=== PATIENT | female | born 1950 | race Caucasian/White ===

== ENCOUNTER → 2017-08-21 12:23 | Outpatient (CLI) | payer MEDICARE, OTHER, SELFPAY ==
[2017-08-21 14:44] LABS: Hemoglobin A1c 6.2 % (4.2-6.3)
== END ==
PROVIDERS: Family Provider Internal Medicine; PCP Internal Medicine; Visit Provider Nurse Practitioner Family
DX: E11.9 Type 2 diabetes mellitus without complications (principal)
CPT/HCPCS: 36415; 83036

== ENCOUNTER → 2018-02-26 10:26 | Outpatient (CLI) | payer MEDICARE, OTHER, SELFPAY ==
[2018-02-26 12:41] LABS: Hemoglobin A1c 6.1 % (4.2-6.3)
[2018-02-26 12:47] LABS: ALB/GLOB Ratio 1.1 RATIO (0.9-2.4); AST(SGOT) 26 U/L (15-37); Alanine Aminotransfer ALT/SGPT 30 U/L (13-56); Albumin, Serum 3.9 g/dL (3.2-5.0); Alkaline Phosphatase 99 U/L (45-117); Anion Gap 8 (5-15); BUN 23 mg/dL (7-18); BUN/Creat Ratio 25.4 RATIO (10-20); Calcium,Total 9.4 mg/dL (8.5-10.1); Chloride 107 mmol/L (98-107); Cholesterol 159 mg/dL (200); EST Glomerular Filtration Rate 65 mL/min (>60); Est Glom Filt Rate - Afr Amer 79 mL/min (>60); Globulin 3.7 g/dL (2.2-4.2); Glucose 130 mg/dL (74-106); High Density Lipoprotein 64 mg/dL; Protein, Total 7.6 g/dL (6.4-8.2); Sodium Level 143 mmol/L (136-145); Triglycerides 111 mg/dL; Very Low Density Lipoprotein 22 mg/dL (5-40)
--- NOTE | 2018-02-26 13:43 | BI_ITS ---
MAMMOGRAPHY - BILATERAL SCREENING REASON FOR EXAM: Female, 68 years old. Routine annual screening examination. PERTINENT HISTORY: Mother with breast cancer. TECHNIQUE: Digital bilateral breast rambo (3D mammographic acquisition) in the CC and MLO projections. 2-D mediolateral oblique (MLO) and craniocaudad (CC) views of both breasts were obtained. CAD: Full Field Digital Mammography with Computer Added Detection was performed. COMPARISON: Comparison is made with prior study dated January 29, 2017 and June 11, 2012. FINDINGS: Breast Composition: The breasts are almost entirely fatty. There are no dominant masses or suspicious calcifications. Stable bilateral scattered calcifications. No focal clustering is seen. No other significant abnormalities are identified. There has been no significant change since the prior study. BI/SCREENING MAMM (CAD), BILAT IMPRESSION: Stable bilateral screening mammogram. Yearly follow-up mammogram recommended. (A) ASSESSMENT CATEGORY: BIRADS Category 2: Benign. A letter regarding these results will be sent to the patient by the facility within 30 days. Approximately 10% of breast cancers are not detected by mammography. A normal mammogram should not delay biopsy of a clinically suspicious abnormality. [id number] Electronically Signed: Brown Dawkins MD at 11:10 EDT Tel [phone], Service support ,
--- NOTE | 2018-02-26 13:51 | BD_ITS ---
STUDY: DUAL ENERGY X-RAY ABSORPTIOMETRY / DXA REASON FOR EXAM: Female, 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 COMPARISON: None. FINDINGS: Lumbar Spine (L1-L4): g/cm2 (1.315) / T-score (1.2) / Z-score (2.9) Findings are suggestive of normal bone density with a low fracture risk. Left Femur Total: g/cm2 (1.016) / T-score (.1) / Z-score (1.5) Left Femoral Neck: g/cm2 (.821) / T-score (-1.6) / Z-score (.1) Right Femur Total: g/cm2 (.948) / T-score (-.5) / Z-score (1) Right Femoral Neck: g/cm2 (.773) / T-score (-1.9) / Z-score (-.2) BD/Dexa Bone Density Study IMPRESSION: The patient is considered osteopenic as outlined below according to World Bj Organization (WHO) criteria with a moderate fracture risk. Reference Information: The T-score is the number of standard deviations above or below the standard which is normal for young adults at their peak bone mineral density. The World Health Organization (WHO) interprets the T-scores as follows: Above -1 Normal bone density Between -1 and -2.5 Osteopenia Equal to / or below -2.5 Osteoporosis As a practical clinical guideline, osteopenia may be graded as follows: Mild -1 through -1.5 Moderate -1.6 through -2.0 Severe -2.1 through -2.4 The Z-score is the number of standard deviations above or below age-matched controls. A Z-score of less than -1.5 would be considered abnormal. References: 1. NIH Osteoporosis and Related Bone Diseases http://www.osteo.org 2. International Society for Clinical Densitometry http://www.iscd.org 3. National Osteoporosis Foundation http://www.nof.org Electronically Signed: Gaston Segura MD at 22:21 EDT , Service support ,
== END ==
PROVIDERS: Family Provider Internal Medicine; PCP Internal Medicine; Visit Provider Internal Medicine
DX: Z78.0 Asymptomatic menopausal state (principal); Z12.31 Encounter for screening mammogram for malignant neoplasm of breast; E11.9 Type 2 diabetes mellitus without complications; I10 Essential (primary) hypertension
CPT/HCPCS: 36415; 77063; 77067; 77080; 80053; 80061; 83036

== ENCOUNTER 2018-03-02 06:59 | Day surgery (SDC) | payer MEDICARE, OTHER, SELFPAY ==
[2018-03-02] VITALS (7 sets, daily range): BP systolic 104–143; BP diastolic 63–75; PULSE 62–73; RESP 12–16; TEMP 35.7–37.1; O2SAT 98–100; BMI 37.5
--- NOTE | 2018-03-02 | COLBX_PTH ---
PATIENT: HIEU SAGASTUME LOC: [facility] U#:[id number] AGE/SX: 68/F ROOM: RE03/02/[address]: Dr. Mine Austin MD : [id number] BED: DIS: 03/02/2018 SPEC #: [id number] RECD: 03/02/18 09:17 STATUS: BERE ANNE #: [id number] DOM: 03/02/18 00:[address]: Mine Austin DEPT: SURGICAL PATHOLOGY RECD BY: Jamarcus Geronimo ENTERED: 03/02/18 10:47 SP TYPE: COLON BX OTHR DR: Dr. Cassie Nuno MD Tissues: A - Cecum, NOS B - Sigmoid colon biopsy Procedures: Surgery Specimen Level IV HEADER OPERATION: Colonoscopy (MAC) PRE-OP DIAGNOSIS: Screening for colon CA TISSUE SUBMITTED: A ? Cecal polyp biopsy, B ? Sigmoid polyp biopsy MICROSCOPIC DIAGNOSIS A. Cecal polyp, biopsy: Benign mucosal polyp. See comment. B. Sigmoid colon polyp, biopsy: Fragments of tubular adenoma. AM:jose 03/03/18 COMMENT A. Neither hyperplastic nor adenomatous change is present. Benign appearing lymphoid aggregate is noted. Clinical correlation is suggested. Case has been reviewed in consultation with Dr. Rogers who concurs with the above diagnosis. IDC:YANETH MICROSCOPIC DESCRIPTION Slides are reviewed. GROSS DESCRIPTION A - Received in fixative is one container labeled with the patient's name and designated cecal polyp biopsy. The specimen consists of two irregular fragmenst of light amaya soft tissue that measure 0.5 x 0.2 x 0.1 cm. The specimen is totally submitted in one cassette. B - Received in fixative is one container labeled with the patient's name and designated sigmoid polyp biopsy. The specimen consists of two irregular fragments of light amaya soft tissue that measure 0.3 x 0.3 x 0.1 cm. The specimen is totally submitted in one cassette. / YANETH:jose 03/02/18 TC:5 CPT: 67170 x2
[2018-03-02 07:30] LABS: Bedside Glucose 108 mg/dL (70-110)
--- NOTE | 2018-03-02 08:28 | PCM.OPRPT ---
Report of Operation Date of Procedure: 03/02/18 Pre-Operative Diagnosis: Screening for colon cancer Post-Operative Diagnosis: Small sessile cecal and sigmoid polyps Surgery/Procedure Performed:: Colonoscopy with cold forceps biopsy Type of Anesthesia:: MAC Anesthesiologist: Shalom Pastor Specimen's removed: 1. Cecal polyp, 2. Sigmoid polyp Estimated Blood Loss (mL): Minimal Description of Procedure: Procedure: Colonoscopy After reviewing the risks benefits, the patient was deemed in satisfactory condition to undergo procedure. After obtaining informed consent, the scope was passed under direct visualization. Throughout the procedure, the patient's blood pressure pulse and position saturations were monitored continuously anesthesia. The colonoscope was introduced through the anus and advanced to the cecum, identified by the appendiceal orifice, IC valve and transillumination. The colonoscopy was performed without difficulty. The patient tolerated procedure well. Quality of bowel prep was good. Findings: The perianal and digital rectal exam were normal. Small sessile cecal and sigmoid polyp removed with cold forceps biopsies. Otherwise the colon (entire examined portion) appeared normal. Retroflexed view of the distal rectum and anal verge was normal and showed no anal or rectal abnormalities Impression: 1. 2 small sessile polyps one in the cecum and one in the sigmoid. Removed completely 2. The distal rectal and anal verge were normal on retroflexed view. Recommendations: Await biopsies Repeat colonoscopy in 5 years for screening purposes depending on biopsies - Complications None
== END 2018-03-02 09:20 | disposition home or self-care (01) ==
LOC: EN 07:00 → AC 07:01
PROVIDERS: Family Provider Internal Medicine; PCP Internal Medicine; Visit Provider Surgery
PROC: 0DJD8ZZ Inspection of Lower Intestinal Tract, Via Natural or Artificial Opening Endoscopic (ICD-10-PCS; CPT 45378; principal; 2018-03-02 07:55)
DX: Z12.11 Encounter for screening for malignant neoplasm of colon (principal); D12.5 Benign neoplasm of sigmoid colon; K63.5 Polyp of colon; E11.9 Type 2 diabetes mellitus without complications
CPT/HCPCS: 45380; 82962; 88305; J7120

== ENCOUNTER → 2018-03-31 09:38 | Outpatient (CLI) | payer MEDICARE, OTHER, SELFPAY ==
[2018-03-31 12:28] LABS: Anion Gap 7 (5-15); BUN 11 mg/dL (7-18); BUN/Creat Ratio 13.9 RATIO (10-20); Calcium,Total 9.5 mg/dL (8.5-10.1); Chloride 103 mmol/L (98-107); Creatinine, Serum 0.79 mg/dL (0.55-1.02); EST Glomerular Filtration Rate 76 mL/min (>60); Est Glom Filt Rate - Afr Amer 93 mL/min (>60); Glucose 132 mg/dL (74-106); Potassium 4.9 mmol/L (3.5-5.1); Sodium Level 138 mmol/L (136-145)
[2018-03-31 12:53] LABS: Hemoglobin A1c 6.1 % (4.2-6.3)
== END ==
PROVIDERS: Family Provider Internal Medicine; PCP Internal Medicine; Referring Provider Internal Medicine; Visit Provider Internal Medicine
DX: E11.9 Type 2 diabetes mellitus without complications (principal); I10 Essential (primary) hypertension
CPT/HCPCS: 36415; 80048; 83036

== ENCOUNTER → 2019-03-01 08:11 | Outpatient (CLI) | payer MEDICARE, OTHER, SELFPAY ==
[2018-11-17 11:35] VITALS: BMI 40.4
--- NOTE | 2019-03-01 08:13 | BI_ITS ---
MAMMOGRAPHY - BILATERAL SCREENING REASON FOR EXAM: Female, 69 years old. Routine annual screening examination. PERTINENT HISTORY: Mother with breast cancer. Aunt with breast cancer. TECHNIQUE: Digital bilateral breast freya (3D mammographic acquisition) in the CC and MLO projections. 2-D mediolateral oblique (MLO) and craniocaudad (CC) views of both breasts were obtained. CAD: Full Field Digital Mammography with Computer Added Detection was performed. COMPARISON: Comparison is made with prior study dated February 26, 2018 and January 29, 2017. FINDINGS: Breast Composition: The breasts are almost entirely fatty. There are no dominant masses or suspicious calcifications. Stable appearance of the bilateral diffusely scattered microcalcifications in both breasts. No other significant abnormalities are identified. There has been no significant change since the prior study. BI/SCREEN MAMM (CAD) W/FREYA BILAT IMPRESSION: Stable bilateral screening mammogram. Yearly follow-up mammogram recommended. (A) ASSESSMENT CATEGORY: BIRADS Category 2: Benign. A letter regarding these results will be sent to the patient by the facility within 30 days. Approximately 10% of breast cancers are not detected by mammography. A normal mammogram should not delay biopsy of a clinically suspicious abnormality. [id number] Electronically Signed: Brown Dawkins, at 9:20 EDT , Service support ,
== END ==
PROVIDERS: Family Provider Internal Medicine; PCP Internal Medicine; Referring Provider Internal Medicine; Visit Provider Internal Medicine
DX: Z12.31 Encounter for screening mammogram for malignant neoplasm of breast (principal); Z80.3 Family history of malignant neoplasm of breast
CPT/HCPCS: 77063; 77067

== ENCOUNTER → 2019-03-25 11:07 | Outpatient (CLI) | payer MEDICARE, OTHER, SELFPAY ==
[2018-11-17 11:35] VITALS: BMI 40.4
[2019-03-25 12:31] LABS: Absolute Lymphocyte Count 1.29 X10^3/uL (0.83-4.51); Absolute Neutrophil Count 2.8 X10^3/uL (2.0-7.7); Basophil# 0.04 X10^3/uL; Basophil% 0.9 % (0-1); Eosinophil# 0.02 X10^3/uL; Eosinophils% 0.4 % (0-5); Hematocrit 44.9 % (37-47); Hemoglobin 15.2 g/dL (12.0-15.0); Lymphocyte # 1.29 X10^3/ul (4.0); Lymphocyte % 27.6 % (19-41); Mean Corp Hgb Conc 33.9 g/dL (32-36); Mean Corpuscular Hgb 32.5 pg (27.0-32.0); Mean Corpuscular Volume 95.9 fL (81-99); Mean Platelet Vol. 10.4 fl (6.2-12.0); Monocyte# 0.52 X10^3/uL; Monocyte% 11.1 % (0-10); NRBC Flagged by Analyzer 0 % (0-5); Neutrophil # 2.79 X10^3/uL (2.7-7.7); Neutrophil % 59.8 % (47-70); POSITIVE COUNT YES; Platelet Count 121 K/mm3 (150-450); RBC Distribution Width CV 12.2 % (11.6-14.6); RBC Distribution Width SD 42.5 fl (35.1-43.9); Red Blood Count 4.68 M/mm3 (4.2-5.4); White Blood Count 4.7 K/mm3 (4.4-11.0)
[2019-03-25 12:35] LABS: Differential Indicated SCAN CRITERIA MET
[2019-03-25 13:10] LABS: Anion Gap 10 (5-15); BUN 15 mg/dL (7-18); BUN/Creat Ratio 16.2 RATIO (10-20); Calcium,Total 9.4 mg/dL (8.5-10.1); Chloride 105 mmol/L (98-107); Cholesterol 118 mg/dL (200); Creatinine, Serum 0.92 mg/dL (0.55-1.02); EST Glomerular Filtration Rate 64 mL/min (>60); Est Glom Filt Rate - Afr Amer 77 mL/min (>60); Glucose 119 mg/dL (74-106); High Density Lipoprotein 59 mg/dL; Sodium Level 136 mmol/L (136-145); Triglycerides 90 mg/dL; Very Low Density Lipoprotein 18 mg/dL (5-40)
--- NOTE | 2019-03-25 14:08 | RAD_ITS ---
STUDY: X-RAY - LEFT KNEE REASON FOR EXAM: Female, 69 years old. Left knee pain TECHNIQUE: 4 view(s) of the knee. COMPARISON: None. FINDINGS: Normal visualized distal femur. Normal visualized proximal tibia and fibula. Normal proximal tibiofibular articulation. There is mild degenerative arthrosis of the medial femorotibial compartment. There is severe degenerative arthrosis of the lateral femorotibial compartment with severe joint space narrowing. Normal patellofemoral articulation. The soft tissue structures are unremarkable. RAD/Knee 4 or More Views IMPRESSION: Degenerative arthrosis. Electronically Signed: Shukri Jonas MD at 16:34 EDT , Service support ,
[2019-03-25 15:38] LABS: Microalbumin,Random Urine 8.1 mg/L (NO RANGE EST.); Microalbumin:Creatinine Ratio 18.9 mg/g CRE (<30 mg/g CRE)
== END ==
PROVIDERS: Family Provider Internal Medicine; PCP Internal Medicine; Referring Provider Internal Medicine; Visit Provider Internal Medicine
DX: I10 Essential (primary) hypertension (principal); E11.9 Type 2 diabetes mellitus without complications; M17.12 Unilateral primary osteoarthritis, left knee
CPT/HCPCS: 36415; 73564; 80048; 80061; 82043; 82570; 85025

== ENCOUNTER 2019-04-27 05:25 | Observation (INO) | payer MEDICARE, OTHER, SELFPAY ==
[2019-04-02 08:49] VITALS: BMI 39.6
[2019-04-14 11:49] VITALS: BMI 39.0
[2019-04-20 08:11] VITALS: BP 137/69; PULSE 72; RESP 16; TEMP 36.5; O2SAT 100; BMI 38.7
--- NOTE | 2019-04-20 08:27 | SDCEKG_ITS ---
Test Reason : Blood Pressure : / mmHG Vent. Rate : 068 BPM Atrial Rate : 068 BPM P-R Int : 176 ms QRS Dur : 070 ms QT Int : 380 ms P-R-T Axes : 054 022 044 degrees QTc Int : 404 ms Sinus rhythm with occasional Premature ventricular complexes Otherwise normal ECG Confirmed by CHAPIS GROSS, ANDREW ([id number]), supervising film or videotape editor DAYNE MONTERROSO ([id number]) on 04/27/2019 2:48:28 PM Referred By: Jace Graves Confirmed By:ANDREW NATION MD
[2019-04-20 09:43] LABS: International Normalized Ratio 1.1; Prothrombin Time (Protime)PT. 13.5 SECONDS (11.7-14.9)
[2019-04-20 09:44] LABS: Partial Thromboplast Time 30.1 Seconds (24.1-36.2)
[2019-04-20 10:04] LABS: AST(SGOT) 23 U/L (15-37); Alanine Aminotransfer ALT/SGPT 35 U/L (13-56); Albumin, Serum 3.7 g/dL (3.2-5.0); Alkaline Phosphatase 79 U/L (45-117); Globulin 3.6 g/dL (2.2-4.2); Protein, Total 7.3 g/dL (6.4-8.2)
[2019-04-27] VITALS (10 sets, daily range): BP systolic 115–149; BP diastolic 51–83; PULSE 63–90; RESP 16–18; TEMP 36.3–36.9; O2SAT 94–100; BMI 38.7
[2019-04-27 06:11] LABS: Bedside Glucose 190 mg/dL (70-110)
[2019-04-27] MEDS: Lactated Ringers 1,000 ML 100 ML IV (06:25)
[2019-04-27] MEDS: Magnesium Sulfate 4gm/100mL 4 GM/100 ML IV.SOLN. IV (06:26)
[2019-04-27] MEDS: Scopolamine 1mg/72hr Patch 1 PATCH TRANSDERM. (06:28)
[2019-04-27] MEDS: Insulin Lispro 100 UNIT/ML INSULN.PEN SC ×2 (06:31→10:56)
[2019-04-27] MEDS: Gabapentin 600 MG Tablet PO (06:33)
[2019-04-27] MEDS: Acetaminophen 500 MG Tablet 1000 MG PO ×3 (06:33→22:44)
[2019-04-27] MEDS: Cefazolin 2 GM in 0.9% Normal Saline 100 ML IV (07:30)
--- NOTE | 2019-04-27 07:44 | PCM.HP.BLA ---
History and Physical Date of Admission: 04/27/19 Intake Vital Signs 04/14/19 Body Mass Index (BMI) 39.0 Intake Visit Reasons: left knee Accompanied by: Is patient in pain?: Yes Pain scale (1-10): 2 Allergies No Known Allergies Allergy (Verified 04/09/19 08:44) Medications lisinopril 5 mg tablet 5 mg PO DAILY #90 tab 11/17/18 [Rx Confirmed 04/14/19] [facility] Medical History (Updated 11/17/18 @ 09:51 by Cassie Nuno MD) Arthritis (Acute) Diabetes (Acute) Gallstones (Acute) Osteoarthritis (Acute) history of broken wrist (Acute) Acute suppurative otitis media of left ear with spontaneous rupture of ear drum (Resolved) Surgical History (Updated 03/02/18 @ 08:30 by Mine Austin MD) History of section (Acute) History of cholecystectomy (Acute) History of knee replacement (Acute) Family History (Updated 09/08/17 @ 09:09 by Cherri Heard) Sister Thyroid disorder Cancer uterine/stomach/facial Arthritis Sister Thyroid disorder Hypertension Sleep apnea Sister Thyroid disorder Brother Hypertension Diabetes Social History (Updated 04/14/19 @ 14:33 by Jace Graves DO) Smoking Status: Never smoker second hand exposure: No alcohol intake: never substance use type: does not use what type of physical activity do you participate in: other details: exercise bike frequency: daily duration: 15-30 minutes/day HPI left knee: Details: Parts of this documentation were recorded by a scribe, this documentation accurately reflects the service provided and the decisions made by me, Jace Graves DO 04/14/19 0805. HIEU SAGASTUME is a 69 year old F here today for left knee pain associated with her OA. She complains of pain with stairs and prolonged standing or walking. She presents today with no assitive device. Denies numbness, tingling or other associated symptoms. Office Procedures Iovera Details:: Preoperative diagnosis : left knee pain Postoperative diagnosis: Same Procedure: Cryotherapy with Iovera device to anterior femoral cutaneous nerve and 2 branches of the infrapatellar saphenous nerve III nerves in total Description of procedure: Patient was brought back to the procedure room the operative extremity was identified by both patient and physician. The PIP flexion crease was measured to the midpoint of the patella and this distance was divided in 3 resulting in 10 cm location proximal to the midpoint of the patella. This line was extended medial and lateral to the extent of the edges of the patella. This was our treatment line for the anterior femoral cutaneous nerve. A second treatment line was made 5 cm medial to the inferior pole of the patella and 5 cm distally. The leg was prepped with alcohol and Betadine. Lidocaine with epi was used along the treatment lines. Using the Iovera device treatment lines were treated with 1 minute cycles. Reproduction of paresthesias was monitored in the area of nerve distribution. Once all 3 nerves were treated across the 2 treatment lines patient was cleaned and a light dressing with 4 x 4 and Eddie wrap was applied. Patient tolerated the procedure without complication. Assessment & Plan Problems 1. Chronic pain of left knee M25.562; G89.29 Plan Reviewed the risks and benefits of Iovera injection and patient elects to proceed. Explained that she may have pain relief immediately and she can resume normal activities as tolerated today. Follow up up post op or sooner if pain, swelling, numbness or associated symptoms, or concerns develop. All questions answered. Patient in agreement of plan. Orders Orders: Iovera Today M25.569 Coding Level of Care Code Attention Naveen Diagnoses Chronic pain of left knee M25.562; G89.29 ??Chronicity: chronic I have re-examined the patient. There are no clinical changes since date of exam
[2019-04-27] MEDS: dexAMETHasone 10 MG/ML Vial IV (08:16)
[2019-04-27] MEDS: 0.9% Normal Saline (Pres. free 10 ML Vial (09:22)
[2019-04-27] MEDS: Epinephrine (1 mg/ml) 1 MG/ML VIAL (09:22)
[2019-04-27] MEDS: Bupivacaine 0.5% PF 10 ML VIAL (09:22)
--- NOTE | 2019-04-27 09:39 | RAD_ITS ---
STUDY: X-RAY - LEFT KNEE REASON FOR EXAM: Female, 69 years old. Left knee replacement. TECHNIQUE: AP and lateral view(s) of the knee. COMPARISON: Comparison is made with prior examination dated March 25, 2019. FINDINGS: Normal visualized distal femur. Normal visualized proximal tibia and fibula. Normal proximal tibiofibular articulation. The patient is status post left knee replacement. There is good alignment. Postoperative soft tissue changes. RAD/Knee 1 or 2 Views IMPRESSION: Status post total knee replacement. There is good alignment. Postoperative soft tissue changes. Electronically Signed: Brown Dawkins, at 10:42 EST , Service support ,
--- NOTE | 2019-04-27 09:46 | PCM.OPRPT ---
Report of Operation Date of Procedure: 04/27/19 Description of Surgical Findings:: Preoperative diagnosis: Left knee DJD valgus deformity Postoperative diagnosis: Same Procedure: Left total knee arthroplasty Implant: Tony triathlon cemented left femoral component size 4, cemented tibial baseplate size 4, cemented asymmetric patella size 32, polyethylene X3 size 9 CS Anesthesia: Spinal with adductor canal block Tourniquet time: 60 minutes at 300 mmHg Complications: None Condition: Stable to PACU Estimated blood loss: 25 cc Indication for procedure: This is a 69-year-old female with long standing degenerative joint disease of the knee who has failed conservative treatment and wished to proceed with elective total knee arthroplasty. Risk benefits and alternatives were reviewed including; risk of bleeding, infection, nerve artery and tissue damage, continued pain, postoperative stiffness, venous thromboembolism, need for postoperative rehabilitation, mechanical feel to the knee, and expected postoperative course. Procedure: The patient was met in the preoperative holding area. The operative extremity was identified by both patient and physician and was marked. Patient was met by anesthesia. An adductor canal block was placed by anesthesia postoperatively the patient was brought back to the operating room on a wheeled cart and transferred to the operating table in the supine position. Anesthesia was started. A well-padded tourniquet was placed on the operative extremity. The patient was prepped and draped in the usual sterile fashion. A timeout was called to ensure the proper patient procedure and extremity were being contemplated. An Esmarch was used to exsanguinate the extremity. The tourniquet was inflated. A 10 blade scalpel was used to make a midline incision down through the skin and subcutaneous tissue. Skin retractors placed. Bovie was used to perform meticulous hemostasis. full-thickness flaps were elevated medial and lateral along the joint capsule. A deep blade scalpel was used to perform a medial parapatellar arthrotomy. The knee was brought to full extension. A Bovie was used to release the soft tissues off the most proximal aspect of the medial tibial plateau a three-quarter inch curved osteotome was also used for this process. The infrapatellar fat pad was excised. The fat pad was excised partially anterior lateral portion the anterior medial was elevated from the femur. the patella was everted. The knee was brought into flexion. An intramedullary drill was used followed by flexible intramedullary guide polo. The distal femoral cutting block was placed and set to remove 10 mm of bone and 5 degrees of valgus. The block was secured with pins and an oscillating saw was used to complete the distal femoral cut. During this, and all bony cuts retractors were used to protect the collateral ligaments. At this point a femoral sizer was used to measure the AP dimension of the femur. The sizer block was pinned parallel to the epicondylar access for external rotation. The sizing block was removed and the appropriately sized 4-in-1 cutting block was placed over the previously made pinholes. It was checked with an abena wing and the block was secured with pins. An oscillating saw was used to complete the anterior cut followed by the posterior cut followed by the posterior chamfer cut followed by the anterior chamfer cut. The block was removed as well as the fragments. A ronguer was used to remove excess osteophytes. The medial and lateral meniscus were excised as well as the ACL. At this point a PCL retractor was placed and an intramedullary drill was passed down the tibial canal followed by a solid intramedullary guide polo. The tibial cutting block was attached and set to remove 9 mm of bone from the high side. This was checked with an external alignment drop polo for slope and tilt. It was pinned into place. An oscillating saw was used to complete the tibial plateau cut and the block was removed. A large osteotome was used to elevate the fragment and a Luis E and a Bovie were used to free the fragment from the surrounding soft tissue. A rongeur was once again used to remove osteophytes a lamina software design engineer was used to evaluate the posterior capsular structures. A three-quarter inch curved osteotome was used to remove posterior osteophytes. A spacer block was inserted in both extension and flexion to ensure adequate spacing. Trials were inserted full extension and flexion were achieved in varus and valgus stability throughout range of motion were seen, balancing techniques were performed. At this point the attention was turned towards the patella. A caliper was used to ensure sufficient bone stock to remove 10 mm of bone. A reamer was used to perform this task. Lug holes were made for the appropriate-sized patella. The patella trial was inserted and there was good patellar tracking with knee range of motion. The tibial baseplate was allowed to float into rotation and was marked on the tibial plateau with a Bovie. Lug holes were made in the femur and trials were removed. The tibial baseplate was then sized and its preparation was completed with a fin punch. The knee was thoroughly irrigated. A posterior capsular injection was performed with our standard cocktail without steroid. The knee was brought into flexion and irrigated again. The tibial baseplate was cemented. Excess cement was removed with curettes. The polyethylene component was inserted. The femoral component was cemented. The knee was brought into full extension and placed on a bump. The patellar component was cemented. At this point a Betadine rinse was placed and thoroughly irrigated after a few minutes. This was followed by an Iricept rinse which was allowed to sit for 1 minute and then thoroughly irrigated.At this point all gloves were changed. The knee was thoroughly irrigated the joint capsule was closed with #1 Ethibond. Tourniquet was let down followed by 0 Vicryl and 2-0 Vicryl in the subcutaneous tissues. followed by lucy in the skin. Dressing was applied in the form of Mepilex silver dressing web roll and an Eddie wrap from the foot to the groin. The patient tolerated the procedure well, all counts were correct patient was brought back to the PACU in stable condition.
[2019-04-27 10:51] LABS: Bedside Glucose 189 mg/dL (70-110)
[2019-04-27] MEDS: Cefazolin 1 GM/50 ML BAG IV ×2 (11:37→18:25)
[2019-04-27] MEDS: Senna/Docusate Sodium 1 Tablet 2 TABLET PO ×2 (13:14→22:45)
[2019-04-27] MEDS: Ondansetron 4 MG/2 ML Vial IV (14:12)
[2019-04-27] MEDS: Lactated Ringers 1,000 ML 125 ML IV ×2 (14:13→23:07)
[2019-04-28] MEDS: Cefazolin 1 GM/50 ML BAG IV (02:31)
[2019-04-28 02:34] VITALS: BP 98/53; PULSE 76; RESP 16; TEMP 36.9; O2SAT 93
[2019-04-28 05:22] LABS: Hematocrit 35.4 % (37-47); Hemoglobin 11.8 g/dL (12.0-15.0); Mean Corp Hgb Conc 33.3 g/dL (32-36); Mean Corpuscular Hgb 32.4 pg (27.0-32.0); Mean Corpuscular Volume 97.3 fL (81-99); Mean Platelet Vol. 9.7 fl (6.2-12.0); Platelet Count 137 K/mm3 (150-450); RBC Distribution Width CV 12.4 % (11.6-14.6); RBC Distribution Width SD 44.7 fl (35.1-43.9); Red Blood Count 3.64 M/mm3 (4.2-5.4); White Blood Count 10.4 K/mm3 (4.4-11.0)
[2019-04-28 05:38] LABS: Anion Gap 6 (5-15); BUN 11 mg/dL (7-18); BUN/Creat Ratio 14.9 RATIO (10-20); Calcium,Total 8.2 mg/dL (8.5-10.1); Chloride 109 mmol/L (98-107); Creatinine, Serum 0.74 mg/dL (0.55-1.02); EST Glomerular Filtration Rate 83 mL/min (>60); Est Glom Filt Rate - Afr Amer 100 mL/min (>60); Estimated Creatinine Clearance 37.06 ml/min; Glucose 142 mg/dL (74-106); Potassium 4.4 mmol/L (3.5-5.1); Sodium Level 141 mmol/L (136-145)
[2019-04-28] MEDS: Lactated Ringers 1,000 ML 125 ML IV (06:27)
[2019-04-28] MEDS: Acetaminophen 500 MG Tablet 1000 MG PO (06:28)
[2019-04-28] MEDS: APIXABAN 2.5 MG TABLET PO (06:29)
[2019-04-28 09:20] VITALS: BP 129/58; PULSE 71; RESP 16; TEMP 36.8; O2SAT 94
[2019-04-28] MEDS: Lisinopril 5 MG Tablet PO (09:32)
[2019-04-28] MEDS: Senna/Docusate Sodium 1 Tablet 2 TABLET PO (09:33)
--- NOTE | 2019-04-28 10:15 | CASEMGMT ---
YUMIKO REYES Face to Face with patient for initial transition planning/care coordination assessment. RN CM introduced self and role at [facility]. Patient sitting in chair, alert and oriented, daughter at bedside. Patient willing to participate in assessment and is able to answer all questions appropriately. Care providers, pharmacy, and demographics verified. Patient wishes to discharge home and has initiated HHC with [facility], CM to follow-up with [facility]. Patient will need a FWW at discharge. Patient states she has no further needs or concerns at this time. CM to follow for discharge planning needs that may arise. PCP: Nurys Specialists: gustabo Graves Preferred Pharmacy: [facility] in [place] Insurance: MCR, MMO Prescription Benefit: yes Living Will/HPOA: none LNOK: , daughter Living Arrangements: Patient lives with in bi-level home with 6 steps and doulble railings. Patient independent at home prior to surgery. Transportation: Daughter DME/HHC: Patient has shower chair and raised toilet. Patient will need FWW, CM provided list of DME and [employer] is preferred. Disposition Plan: Patient to discharge with home therapy, family support, and follow-up plans in place. [employer] CASAS, RN, CM
--- NOTE | 2019-04-28 10:43 | PCM.DC.ORTHO ---
Discharge Diet: No Restrictions Weight Bearing Status: Weight bearing as tolerated Call your doctor if you observe: Fever of 101 or Higher, Shortness of breath, Chest pain Additional Instructions: Ice and elevate next week while not ambulating. Encourage ambulation weightbearing as tolerated. Encourage FULL knee extension and flexion 1 time EVERY time you get up and down and MULTIPLE times per day. Begin showering postop day #3. Remove the dressing prior to shower gently wash with warm water and antibacterial soap then pat dry place ABD pad and KEITH hose over top. This is to be done daily. do not submerge for 3 weeks. If not showering daily must clean incision and change dressing daily. Do not allow animals near incision keep clean. Follow anticoagulation recommendations. Call Dr. Graves with any concerns. Allergies/Adverse Reactions: Allergies No Known Allergies Allergy (Verified 04/27/19 05:55) Medications to take at Discharge Calcium Carbonate [Calcium] 1,200 mg PO BID 04/20/19 Glucos Sul 2Kcl/MSM/Chond/C/Mn [Glucosamine Chondroitin Cap] 2 ea PO BID 04/20/19 L.acidoph,Paracasei, B.lactis [Probiotic] 1 ea PO DAILY 04/20/19 Lisinopril [Prinivil] 5 mg PO DAILY 04/20/19 Acetaminophen [Tylenol] 1,000 mg PO Q6H PRN #100 tab 04/28/19 Apixaban [Eliquis] 2.5 mg PO BID #28 tab 04/28/19 Oxycodone [Oxyir] 5 - 10 mg PO Q4H PRN PRN #60 tablet 04/28/19 The following prescriptions were given: Apixaban [Eliquis] 2.5 mg PO BID #28 tab Transmission Status: Pending to [place], [place] Oxycodone [Oxyir] 5 - 10 mg PO Q4H PRN PRN #60 tablet PRN Reason: Pain Score 4-10/10 Transmission Status: Sent to [place], [place] Acetaminophen [Tylenol] 1,000 mg PO Q6H PRN #100 tab Transmission Status: Pending to [place], [place] Primary Care Physician: Cassie Nuno MD [Primary Care Provider] - Test Results: Test results from this visit will be discussed in further detail at your follow-up appointment, if applicable. Please Follow Up With: Jace Graves DO - 2 weeks
--- NOTE | 2019-04-28 10:45 | PCM.DC.SUM ---
Discharge Date and Diagnosis Date of Admission: 04/27/19 Date of Discharge: 04/28/19 - Secondary Discharge Diagnosis Chronic Problems (Last Reviewed 04/09/19 @ 08:44 by Shannon Umanzor) Obesity (BMI 30-39.9) (Chronic) Hypertension (Chronic) Type 2 diabetes mellitus (Chronic) Hospital Course and Treatment Summary of Care Provided: The patient is a 69 year old F who has long history of degenerative joint disease to the knee who has failed conservative treatment and wished to undergo elective total knee arthroplasty. Patient underwent the aformentioned procedure on the admission date without any intraoperative complications. Patient did receive pre-and postoperative antibiotics which were discontinued within 23 hours postoperatively. Patient did receive spinal anesthesia as well as an adductor canal block postoperatively. pain was controlled with IV and transition to p.o. pain medication Patient will be discharged home with oxycodone and will continue Tylenol as well. Patient had minimal intraoperative blood loss and tranexamic acid was administered there was no need for postoperative blood transfusion her vital signs remained stable. Patient was started on both mechanical and chemical DVT per prophylaxis postoperatively in the form of SCDs KEITH hose and Eliquis 2.5 mg twice daily for which she will continue for 2 additional weeks post hospital discharge. Eddie removed post op day number one and thigh high keith hose placed over top of the meplix silver dressing. This should be removed 72 hrs post operatively and showering begun daily at that time with warm water and antibacterial soap. not to submerge for 3 weeks. To change dressing daily at that point. Patient will follow-up in the office in 2 weeks. No intrahospital complications. Subjective: Pain controlled denies nausea vomiting shortness of breath chest pain diarrhea constipation - Physical Exam Vitals/I&O's: Vital Signs Temp Pulse Resp BP Pulse Ox 98.2 F 71 16 129/58 H 94 04/28/19 09:20 04/28/19 09:20 04/28/19 09:20 04/28/19 09:20 04/28/19 09:20 Oxygen Flow Rate (L/min) 6 Oxygen Delivery Method Room Air Weight: 198 lb Body Mass Index (BMI) 38.7 Finger Stick Blood Glucose 189 Intake and Output for Last 24 Hours 04/26/19 04/27/19 04/28/19 23:59 23:59 23:59 Intake Total 2270.83 / 2870.83 2079. / 2078. Balance 2270.83 / 0.83 2078. / 2078. General: Alert, Oriented x3, Cooperative, No apparent distress Extremities: - - Dressing clean dry and intact compartment soft neurovascularly intact EHL tibialis anterior gastrocsoleus Laboratory Results 04/27/19 10:42: POC Glucose 189 H 04/28/19 04:48: WBC 10.4, RBC 3.64 L, Hgb 11.8 L, Hct 35.4 L, MCV 97.3, MCH 32.4 H, MCHC 33.3, RDW Std Deviation 44.7 H, RDW Coeff of Luis Angel 12.4, Plt Count 137 L, MPV 9.7 04/28/19 04:48: Sodium 141, Potassium 4.4, Chloride 109 H, Carbon Dioxide 26.0, Anion Gap 6, BUN 11, Creatinine 0.74, Estim Creat Clear Calc 37.06, Est GFR (MDRD) Af Amer 100, Est GFR (MDRD) Non-Af 83, BUN/Creatinine Ratio 14.9, Glucose 142 H, Calcium 8.2 L Current Medications Acetaminophen (Tylenol) 1,000 mg PO Q8 [facility] Last Admin: 04/28/19 06:28 Dose: 1,000 mg Documented by: Apixaban (Eliquis) 2.5 mg PO BID [facility] Last Admin: 04/28/19 06:29 Dose: 2.5 mg Documented by: Hydromorphone HCl (Dilaudid Inj) 0.5 mg IV Q2H PRN PRN PRN Reason: PAIN > 4/10 Insulin Human Lispro (Humalog Kwikpen (Bkc)) 1 - 6 unit SC Q4H PRN PRN; Protocol PRN Reason: BG>/= 180, SEE PROTOCOL Last Admin: 04/27/19 10:56 Dose: 1 units Documented by: Ketorolac Tromethamine (Toradol) 15 mg IV Q6H PRN PRN PRN Reason: Pain Score 1-5/10 Stop: 04/29/19 09:40 Lisinopril (Zestril) 5 mg PO DAILY [facility] Last Admin: 04/28/19 09:32 Dose: 5 mg Documented by: Ondansetron HCl (Zofran) 4 mg IV Q6H PRN PRN PRN Reason: NAUSEA Last Admin: 04/27/19 14:12 Dose: 4 mg Documented by: Oxycodone HCl (Oxyir) 5 - 10 mg PO Q4H PRN PRN PRN Reason: Pain Score 4-10/10 Senna/Docusate Sodium (Senokot-S, Cherry-Colace) 2 tablet PO BID [facility] Last Admin: 04/28/19 09:33 Dose: 2 tablet Documented by: Sodium Chloride () 10 - 40 ml IV UD PRN PRN Reason: SALINE FLUSH Discharge Diet: No Restrictions Weight Bearing Status: Weight bearing as tolerated Call your doctor if you observe: Fever of 101 or Higher, Shortness of breath, Chest pain Home Medications: Medications to take at Discharge Calcium Carbonate [Calcium] 1,200 mg PO BID 04/20/19 Glucos Sul 2Kcl/MSM/Chond/C/Mn [Glucosamine Chondroitin Cap] 2 ea PO BID 04/20/19 L.acidoph,Paracasei, B.lactis [Probiotic] 1 ea PO DAILY 04/20/19 Lisinopril [Prinivil] 5 mg PO DAILY 04/20/19 Acetaminophen [Tylenol] 1,000 mg PO Q6H PRN #100 tab 04/28/19 Apixaban [Eliquis] 2.5 mg PO BID #28 tab 04/28/19 Oxycodone [Oxyir] 5 - 10 mg PO Q4H PRN PRN #60 tablet 04/28/19 Following Prescrptions Were Given to Patient: Apixaban [Eliquis] 2.5 mg PO BID #28 tab Transmission Status: Pending to [place], [place] Oxycodone [Oxyir] 5 - 10 mg PO Q4H PRN PRN #60 tablet PRN Reason: Pain Score 4-10/10 Transmission Status: Sent to [place], [place] Acetaminophen [Tylenol] 1,000 mg PO Q6H PRN #100 tab Transmission Status: Pending to [place], [place] Primary Care Physician: Cassie Nuno MD [Primary Care Provider] - Please Follow Up With: Jace Graves DO - 2 weeks Additional Instructions: Ice and elevate next week while not ambulating. Encourage ambulation weightbearing as tolerated. Encourage FULL knee extension and flexion 1 time EVERY time you get up and down and MULTIPLE times per day. Begin showering postop day #3. Remove the dressing prior to shower gently wash with warm water and antibacterial soap then pat dry place ABD pad and KEITH hose over top. This is to be done daily. do not submerge for 3 weeks. If not showering daily must clean incision and change dressing daily. Do not allow animals near incision keep clean. Follow anticoagulation recommendations. Call Dr. Graves with any concerns. Medical Necessity - Tobacco Use Smoking Status: Never smoker Tobacco Use: Non-smoker Meaningful Use Info Meaningful Use Diagnoses (Choose all that apply): None applicable
--- NOTE | 2019-04-28 11:00 | CASEMGMT ---
YUMIKO REYES received script for FWW and sent to [facility] [place], [place] and arranged for deliver to hospital prior to discharge. YUMIKO REYES called and followed up with [facility], patient is setup and discharge instructions and summary sent to [facility]. Planned start of care for 04/29/19. YUMIKO REYES updated patient regarding home therapy confirmed with [facility] and walker to be delivered to [facility] [place], [place].
[2019-04-28] MEDS: oxyCODONE 5 MG Tablet PO (11:44)
== END 2019-04-28 13:40 | disposition home or self-care (01) ==
LOC: MS3 08:02 → ACINP 04-28 07:53 → MS3 04-28 07:53
PROVIDERS: Anesthesiology; Admitting Provider Orthopaedic Surgery; Family Provider Internal Medicine; PCP Internal Medicine; Referring Provider Orthopaedic Surgery; Visit Provider Orthopaedic Surgery
PROC: (CPT 27447; principal; 2019-04-27 07:05)
DX: M17.12 Unilateral primary osteoarthritis, left knee (principal); M21.062 Valgus deformity, not elsewhere classified, left knee; E11.9 Type 2 diabetes mellitus without complications; G89.29 Other chronic pain; E66.9 Obesity, unspecified; I10 Essential (primary) hypertension; Z68.38 Body mass index [BMI] 38.0-38.9, adult; Z71.3 Dietary counseling and surveillance; Z79.899 Other long term (current) drug therapy; Z79.84 Long term (current) use of oral hypoglycemic drugs; Z87.891 Personal history of nicotine dependence
CPT/HCPCS: 27447; 64447; 36415; 73560; 80048; 80076; 82962; 85027; 85610; 85730; 87081; 93005; 96361; 96365; 96366; 96375; 97110; 97162; 97166; 97530; 97535; 99218; C1776; J7120; G0378; G0379; J0702; J2405; J3490

== ENCOUNTER → 2019-07-19 10:19 | Outpatient (CLI) | payer MEDICARE, OTHER, SELFPAY ==
[2019-07-19 07:55] VITALS: BMI 38.7
--- NOTE | 2019-07-19 10:20 | RAD_ITS ---
STUDY: X-RAY - LEFT KNEE REASON FOR EXAM: 3 month postsurgical follow-up. TECHNIQUE: 4 view(s) of the knee. COMPARISON: Radiographs 04/27/2019. FINDINGS: There is a left total knee arthroplasty without evidence of complication. There is a joint effusion. RAD/Knee 4 or More Views IMPRESSION: Uncomplicated left total knee arthroplasty. Joint effusion Electronically Signed: Marty Gray MD at 14:41 EST Tel , Service support ,
== END ==
PROVIDERS: PCP Internal Medicine; Referring Provider Orthopaedic Surgery; Visit Provider Orthopaedic Surgery
DX: Z96.652 Presence of left artificial knee joint (principal)
CPT/HCPCS: 73564

== ENCOUNTER → 2020-03-22 | Outpatient (CLI) | payer MEDICARE, OTHER, SELFPAY ==
[2019-11-25 09:19] VITALS: BMI 38.7
--- NOTE | 2020-03-22 10:07 | BI_ITS ---
MAMMOGRAPHY - BILATERAL SCREENING REASON FOR EXAM: Female, 70 years old. Routine annual screening examination. PERTINENT HISTORY: FAM HX OF MOTHER @ AGE 8/0''S - MAT GREAT AUNT @ AGE 60''S - NO PREV SURG''S TECHNIQUE: Digital bilateral breast freya (3D mammographic acquisition) in the CC and MLO projections. 2-D mediolateral oblique (MLO) and craniocaudad (CC) views of both breasts were obtained. CAD: Full Field Digital Mammography with Computer Added Detection was performed. COMPARISON: None. FINDINGS: Breast Composition: The breasts are almost entirely fatty. There is an asymmetric density in the upper outer aspect of the left breast for which further evaluation by ultrasound would be recommended. There are no suspicious calcifications. No other significant abnormalities are identified. BI/SCREEN MAMM (CAD) W/FREYA BILAT IMPRESSION: Further imaging evaluation recommended, as described above. (E) ASSESSMENT CATEGORY: BIRADS Category 0: Incomplete. Need additional imaging evaluation. A letter regarding these results will be sent to the patient by the facility within 30 days. Approximately 10% of breast cancers are not detected by mammography. A normal mammogram should not delay biopsy of a clinically suspicious abnormality. [id number] Electronically Signed: Giovanni Bethea, at 13:24 EDT Tel , Service support ,
== END | disposition home or self-care (01) ==
LOC: OPBI 10:07
PROVIDERS: PCP Internal Medicine; Referring Provider Internal Medicine; Visit Provider Internal Medicine
DX: Z12.31 Encounter for screening mammogram for malignant neoplasm of breast (principal)
CPT/HCPCS: 77063; 77067

== ENCOUNTER → 2020-03-23 09:58 | Outpatient (CLI) | payer MEDICARE, OTHER, SELFPAY ==
[2019-11-25 09:19] VITALS: BMI 38.7
--- NOTE | 2020-03-23 10:00 | US_ITS ---
STUDY: ULTRASOUND BREAST - LEFT REASON FOR EXAM: Female, 70 years old. TECHNIQUE: Axial and longitudinal images of the LEFT breast were performed with a high resolution ultrasound transducer. # OF IMAGES: 20 COMPARISON: None. FINDINGS: LEFT Breast: There is a lesion #1 in the upper outer quadrant. The lesion measures 7 x 8 x 9 mm in size. Clock notation: 3 o''clock position. Distance from nipple: 5 cm. Posterior Enhancement: No. Posterior Shadowing: Moderate. Margins: Sharp and jagged. Echogenicity: Hypoechoic. Compression effect on Shape: No change. US/Breast Limited Unilateral IMPRESSION: Suspicious mass. ASSESSMENT CATEGORY: BIRADS Category 4: Suspicious - Biopsy Should Be Considered. A letter regarding these results will be sent to the patient by the facility within 30 days. Electronically Signed: Giovanni Bethea, at 13:50 EDT Tel , Service support ,
== END ==
PROVIDERS: PCP Internal Medicine; Referring Provider Internal Medicine; Visit Provider Internal Medicine
DX: N63.21 Unspecified lump in the left breast, upper outer quadrant (principal)
CPT/HCPCS: 76642

== ENCOUNTER → 2020-04-19 | Outpatient (CLI) | payer MEDICARE, OTHER, SELFPAY ==
--- NOTE | 2020-04-19 | IMM_PTH ---
PATIENT: HIEU SAGASTUME LOC: [facility] U#:[id number] AGE/SX: 70/F ROOM: RE04/19/[address]: Dr. Benny Tabor MD : 1950 BED: DIS: 04/19/2020 SPEC #: [id number] RECD: 04/20/20 11:46 STATUS: BERE REQ #: [id number] DOM: 04/19/20 00:[address]: Benny Tabor DEPT: IMMUNOHISTOCHEMISTRY RECD BY: Lynn Villalta ENTERED: 04/20/20 11:48 SP TYPE: IMMUNO OTHR DR: Dr. Cassie Nuno MD Tissues: Left breast, NOS Procedures: CALPONIN-1 (add) CK5-6 (add) CK8 (add) ROOT-2 (add) E-CAD (add) HER2 JOCELYN (add) KI-67 (add) P53 (add) AR (add) P40 (add) ER (initial) PHYSICIAN & [address] [address] SPECIMEN INFORMATION: Tissue Source: Left breast biopsy Clinical Info: Abnormal mammogram Specimen Number: [id number] CPT code: 50952, 33720 x7, 57772 x3 METHODOLOGY: Deparaffinized sections of prefer/formalin-fixed tissue or PAP/DQ stained slides are incubated with monoclonal/polyclonal antibodies/oligonucleotide probes. Localization is made via biotin free immunoperoxidase method. Appropriate controls are performed and reacted as expected. Results on target cell population are indicated in the following table: RESULTS: ANTIBODY / CLONE RESULT P53 (DO-7) negative Ki-67 (30-9) positive, low CK8 (65kkflK90) positive CK5-6 (D5 & 1684) negative Calponin-1 (MG489V) negative P40 (BC28) negative E-Cad (ECH-6) positive ROOT-2 (SP21) positive MORPHOMETRIC ANALYSIS ER (clone 6F11) >95%, strong intensity AR (clone 16/1E2) >95%, strong intensity Her-2Neu (clone CB11) 0 The prognostic test for HER2 is performed on formalin-fixed paraffin embedded tissue. A 3+ (positive) staining pattern is defined as intense, homogeneous, complete, circumferential membranous staining in >10% of contiguous tumor cells. A similar weak (2+) staining pattern is interpreted as equivocal. IVAN follow-up testing is recommended for all equivocal cases. Positivity/negativity for ER/AR is reported if > or < 1% of the tumor cells are immuno- reactive, respectively. The ASCO/CAP criteria is used for scoring. Reference: Journal of Clinical Oncology, 2013; 31:5494-2392 & 2010; 16:5027-0773. Duration of fixation: 9.5 Hrs; Sample Adequate: Yes. These assays have not been validated on decalcified tissues. Results should be interpreted with caution given the likelihood of false negativity on decalcified specimens. These tests were developed and their performance characteristics determined by [facility]. They may not have been cleared or approved by the U.S. Food and Drug Administration. The FDA has determined that such clearance or approval is not necessary. The above immunohistochemical/dualISH markers are ordered and reviewed by the Pathologist. INTERPRETATION: Left breast, ultrasound-guided biopsy: Invasive ductal carcinoma, nuclear grade 2. Positive for estrogen receptors (favorable prognostic indicator). Positive for progesterone receptors (favorable prognostic indicator). Negative for overexpression of AXI0ooa. SJ:jose 04/21/20
--- NOTE | 2020-04-19 09:43 | BRBX_PTH ---
PATIENT: HIEU SAGASTUME [facility] U#:[id number] AGE/SX: 70/F ROOM: RE04/19/[address]: Dr. Benny Tabor MD : 1950 BED: DIS: 04/19/2020 SPEC #: [id number] RECD: 04/19/20 11:18 STATUS: BERE REPramod #: [id number] DOM: 04/19/20 09:[address]: Benny Tabor DEPT: SURGICAL PATHOLOGY RECD BY: Rahul Valentino ENTERED: 04/19/20 11:45 SP TYPE: BREAST BX OTHR DR: Dr. Cassie Nuno MD Tissues: Left breast, NOS Procedures: Surgery Specimen Level IV HEADER OPERATION: Ultrasound-guided mammotome biopsy left breast PRE-OP DIAGNOSIS: Abnormal mammogram TISSUE SUBMITTED: Left breast biopsy ISCHEMIC TIME: 1 minute FIXATION TIME: 9.5 hours MICROSCOPIC DIAGNOSIS Left breast, ultrasound-guided core biopsy: Invasive ductal carcinoma with the following characteristics: Maximal length - 7 millimeters Nuclear grade - 2/3 AM:jose 04/20/20 COMMENT ER/TN/Bhy9vbk studies are being performed on sections of tumor and the results from this study will be reported separately ([id number]). Case has been reviewed in consultation with Dr. Rogers who concurs with the above diagnosis. IDC:YANETH MICROSCOPIC DESCRIPTION Slides are reviewed. GROSS DESCRIPTION Received in fixative is one container labeled with the patient name and designated left breast. The specimen consists of multiple elongated fragments of amaya-yellow fibroadipose tissue that in aggregate measure 2.5 x 1 x 0.1 cm. The entire specimen is submitted in one cassette. / YANETH:jose 04/19/20 TC:0 CPT: 19015
== END | disposition home or self-care (01) ==
LOC: LABSPEC 11:33
PROVIDERS: PCP Internal Medicine; Visit Provider Surgery
DX: C50.912 Malignant neoplasm of unspecified site of left female breast (principal); Z17.0 Estrogen receptor positive status [ER+]
CPT/HCPCS: 88305; 88341; 88342

== ENCOUNTER 2020-05-03 10:20 | Day surgery (SDC) | payer MEDICARE, OTHER, SELFPAY ==
[2020-04-26 13:19] VITALS: BMI 38.8
--- NOTE | 2020-05-03 | AXNB_PTH ---
PATIENT: HIEU SAGASTUME LOC: [facility] U#:[id number] AGE/SX: 70/F ROOM: RE05/03/[address]: Dr. Benny Tabor MD : 1950 BED: DIS: 05/03/2020 SPEC #: [id number] RECD: 05/03/20 13:36 STATUS: BERE REPramod #: [id number] DOM: 05/03/20 00:[address]: Benny Tabor DEPT: SURGICAL PATHOLOGY RECD BY: Lynn Villalta ENTERED: 05/03/20 14:22 SP TYPE: AX NODE BX OTHR DR: Dr. Cassie Nuno MD Tissues: A - Axillary lymph node, NOS B - Left breast, NOS Procedures: Frozen Section (charge) Frozen Section Add'l ([facility]) Surgery Specimen Level V HEADER OPERATION: Ultrasound-guided wire localization lumpectomy with sentinel node biopsy PRE-OP DIAGNOSIS: Malignant neoplasm of upper outer quadrant of left breast, ER positive TISSUE SUBMITTED: A - Arthur lymph node biopsy left breast, FS at 1332, B - Left breast lumpectomy with sire, wire and skin lateral, single suture - medial, double - inferior, clips - posterior on muscle FROZEN SECTION DIAGNOSIS A. Left axillary sentinel lymph node, biopsy: One out of one lymph node negative for carcinoma. AM:jose 05/03/20 MICROSCOPIC DIAGNOSIS A. Left axillary sentinel lymph node, biopsy: One out of one lymph node negative for carcinoma. B. Left breast, lumpectomy: Invasive ductal carcinoma. One out of one lymph nodes positive for micrometastatic (0.7mm) carcinoma. See cancer check list below. AM:jose 05/09/20 COMMENT INVASIVE BREAST CANCER SUMMARY Procedure: Excision with wire guidance Specimen: Type: Partial breast Size: 10 x 7 x 3.5 cm Laterality: Left Invasive Tumor: Size: 1.5 x 1 x 1 cm Focality: Single focus of invasive carcinoma. Histologic type: Invasive ductal carcinoma. Histologic grade ([place] grade): Glandular/tubular differentiation score: 3 Nuclear pleomorphism score: 2 Mitotic count score: 1 Overall grade: 2 (score of 6) Lymphvascular invasion: Not identified Ductal Carcinoma In Situ: Estimated size (extent): Number of blocks: 1 of 10 blocks Architectural pattern: solid Nuclear grade: 2/3 Necrosis: Not present Lobular Carcinoma In Situ: Not present Tumor extension: Skin: Free of carcinoma. cicatrix Nipple: Not applicable Skeletal muscle: Not present Invasive Carcinoma Margin: Distance from closest margin: 12 mm from anterior margin In Situ Carcinoma Margin: Distance from closest margin: 12 mm from anterior margin Lymph Nodes: Number of sentinel lymph nodes examined: 1 Total number of lymph nodes examined: 2 Number of lymph node(s) positive for metastatic carcinoma: One out of one Intraparenchymal lymph node with micrometastatic (0.7mm) carcinoma. No isolated tumor cells seen and no extranodal extension of tumor is identified. Also see specimen A. Microcalcifications: Focally present in non-neoplastic tissue. Treatment Effect: Unknown Additional Pathologic Findings: Biopsy cavity with associated reactive change and mild fibrocystic change. Ancillary Studies: Previously performed on same tumor ([id number]) ER: positive (>95%, strong intensity) SD: positive (>95%, strong intensity) Iwg3otd: negative (0) Clinical History: Pathologic Stage: T1c N1(mi) Mx The above summary is in compliance with [employer] [place] [employer] (CAP) Cancer Protocol Checklist and [place] [employer] Committee on Cancer (AJCC) Staging Manual, 8th Ed. Immunohistochemistry ([id number]) supports the above diagnosis. This case was reviewed and diagnosis discussed with Dr. Tabor on 05/09/20. MICROSCOPIC DESCRIPTION Slides are reviewed. GROSS DESCRIPTION A - Received fresh for frozen section consultation labeled with the patient's name is a specimen designated sentinel lymph node left breast. The specimen consists of an irregular fragment of amaya-yellow fibrofatty tissue measuring 3.5 x 2.5 x 1 cm. Dissection reveals a single amaya nodule with light blue discoloration measuring 2 cm in greatest dimension. The nodule is bisected and submitted in two blocks for frozen section consultation. / AM:jose 05/04/20 B - Received fresh for OR consultation labeled with the patient's name is a specimen designated lumpectomy left breast. The specimen consists of a wire-guided lumpectomy weighing 106 gm and measuring 10 x 7 x 3.5 cm and containing a small ellipse of skin measuring 1 cm. The specimen is differentially inked as follows: anterior - yellow, posterior - black, superior - blue, inferior - green, medial - red and lateral - orange. Serial sections reveal a amaya-white lesion measuring 1.5 x 1 x 1 cm located 1.2 cm from the closest (anterior) margin of resection. The remainder of the breast parenchyma is unremarkable. No other lesion is identified. The gross is reviewed with the surgeon in person. Senior Information Systems Architect sections are submitted in 11 cassettes as follows: 1 & 2 - skin and perpendicular margins, 3-7 - tumor, 8-9 - personal banking representative sections of breast parenchyma adjacent to tumor, 10-11 - personal banking representative sections of breast parenchyma away from tumor. / AM:jose 05/04/20 TC:0 CPT: 42252 x2, 01203, 10308 ADDENDUM ADDENDUM ADDENDUM ADDENDUM ADDENDUM ADDENDUM ADDENDUM ADDENDUM 05/30/2020 09:39 ADDENDUM 05/30/2020 09:39 ADDENDUM 05/30/2020 09:39 ADDENDUM 05/30/2020 09:39 ADDENDUM 05/30/2020 09:39 An order for Oncotype testing was received from Dr. Zavala. This necessitated case review, block and slide selection by pathologist at [facility]. Breast Cancer Recurrence Score = 15 Results of the complete Oncotype testing ([employer] report) are viewable in EMR under: Reports - Pathology - Lab Pathology Report, Scanned.
--- NOTE | 2020-05-03 | IMM_PTH ---
PATIENT: HIEU SAGASTUME LOC: [facility] [place] U#:[id number] AGE/SX: 70/F ROOM: RE05/03/[address]: Dr. Benny Tabor MD : 1950 BED: DIS: 05/03/2020 SPEC #: [id number] RECD: 05/08/20 12:42 STATUS: SOUGirish REQ #: [id number] DOM: 05/03/20 00:[address]: Benny Tabor DEPT: IMMUNOHISTOCHEMISTRY RECD BY: Lynn Villalta ENTERED: 05/08/20 12:44 SP TYPE: IMMUNO OTHR DR: Dr. Cassie Nuno MD Tissues: A - Axillary lymph node, NOS B - Left breast, NOS Procedures: CK7 (add) Pankeratin (initial) Pankeratin (add) PHYSICIAN & INSTITUTION [place] [address] SPECIMEN INFORMATION: Tissue Source: A - Left axillary sentinel lymph node, biopsy, B - Left breast, lumpectomy Clinical Info: Malignant neoplasm of upper outer quadrant left breast Specimen Number: [id number] A1, A2 & B8 CPT code: 09451 x2, 91170 x4 METHODOLOGY: Deparaffinized sections of prefer/formalin-fixed tissue or PAP/DQ stained slides are incubated with monoclonal/polyclonal antibodies/oligonucleotide probes. Localization is made via biotin free immunoperoxidase method. Appropriate controls are performed and reacted as expected. Results on target cell population are indicated in the following table: RESULTS: ANTIBODY / CLONE RESULT Block A1 CK7 (OV-TL12/30) negative AE1-3 (AE1/AE3/PCK26) negative Block A2 CK7 (OV-TL12/30) negative AE1-3 (AE1/AE3/PCK26) negative Block B8 CK7 (OV-TL12/30) positive AE1-3 (AE1/AE3/PCK26) positive These tests were developed and their performance characteristics determined by [facility]. They may not have been cleared or approved by the U.S. Food and Drug Administration. The FDA has determined that such clearance or approval is not necessary. The above immunohistochemical/dualISH markers are ordered and reviewed by the Pathologist. INTERPRETATION: A. Left axillary sentinel lymph node, biopsy: One out of one lymph node negative for carcinoma. B. Left breast, lumpectomy: One out of one lymph node positive for micrometastatic carcinoma. AM:jose 05/09/20
[2020-05-03 10:46] VITALS: BP 105/58; PULSE 66; RESP 16; TEMP 36.2; O2SAT 99; BMI 38.6
--- NOTE | 2020-05-03 11:00 | NM_ITS ---
PROCEDURE: NUCLEAR MEDICINE Injection [place] Node - LEFT breast(s). REASON FOR EXAM: Female, 70 years old. Left breast cancer. TECHNIQUE: [place] node localization using radionuclide methods of the LEFT breast(s) was performed following subcutaneous administration of 1.1 mCi of of sulfur colloid Tc-99m. FINDINGS: 1.1 mCi of technetium labeled sulfur colloid was injected subcutaneously in 4 equal aliquots at the biopsy site. NM/Lymph Node Injection Only IMPRESSION: Subcutaneous injection of 1.1 mCi of technetium labeled sulfur colloid in 4 equal aliquots at the biopsy site. Electronically Signed: Brown Dawkins, at 11:57 EST , Service support ,
[2020-05-03] MEDS: Lactated Ringers 1,000 ML 100 ML IV (11:19)
--- NOTE | 2020-05-03 12:03 | PCM.HP.BLA ---
History and Physical Date of Admission: 05/03/20 [facility] [address] [place] [address] OFFICE VISIT Date of Service: 04/26/20 MR#: [id number] Acct: [id number] Name: HIEU SAGASTUME Rep #: [id number] : 1950 Provider: Dr. 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 Accompanied by: Daughter Is patient in pain?: No Allergies No Known Allergies Allergy (Verified 05/03/20 10:41) Medications Calcium Carbonate [Calcium] 1,200 mg PO BID 04/20/19 [History Confirmed 05/03/20] Glucos Sul 2Kcl/MSM/Chond/C/Mn [Glucosamine Chondroitin Cap] 2 ea PO BID 04/20/19 [History Confirmed 05/03/20] L.acidoph,Paracasei, B.lactis [Probiotic] 1 ea PO DAILY 04/20/19 [History Confirmed 05/03/20] lisinopril 5 mg tablet 5 mg PO DAILY #90 tab 11/06/19 [Rx Confirmed 05/03/20] Elderberry Syrup 10 ml PO DAILY 04/28/20 [History Confirmed 05/03/20] Essential Immune Pill 2 tab PO DAILY 04/28/20 [History Confirmed 05/03/20] Trucalm 1 tab PO TID 04/28/20 [History Confirmed 05/03/20] [facility] Medical History Abnormal mammogram of left breast (Acute) Arthritis (Acute) Breast cancer, left (Acute) Diabetes (Acute) Gallstones (Acute) Osteoarthritis (Acute) history of broken wrist (Acute) Acute suppurative otitis media of left ear with spontaneous rupture of ear drum (Resolved) Surgical History History of section (Acute) History of cholecystectomy (Acute) History of knee replacement (Acute) s/p left total knee arthroplasty (Acute) Family History Sister Thyroid disorder Cancer uterine/stomach/facial Arthritis Sister Thyroid disorder Hypertension Sleep apnea Sister Thyroid disorder Brother Hypertension Diabetes Social History (Updated 05/03/20 @ 12:[address] Benny Tabor MD) Smoking Status: Never smoker second hand exposure: No alcohol intake: never substance use type: does not use what type of physical activity do you participate in: other details: exercise bike frequency: daily duration: 15-30 minutes/day HPI HPI HPI: HIEU SAGASTUME, is a 70 F who presents to the office today for HPI HPI HPI: HIEU SAGASTUME, is a 70 F who presents to the office today for Follow-up from an ultrasound-guided needle core biopsy of her left breast on 04/19/2020. Pathology report came back as invasive ductal carcinoma strongly ER positive. Strongly KS positive. HER-2/héctor negative. ROS General General: No weight change, appetite, fatigue, colon cancer, breast cancer or weakness HEENT HEENT: No difficulty swallowing, eye injury, eye surgery, swollen glands or hoarseness Endo Endocrine: No thyroid disease, diabetes mellitus, thyroid cancer, Hair loss, heat intolerance or cold intolerance Skin Skin: No rash or changing moles Breast Breast: Yes abnormal mammogram and abnormal US; no left breast lump, right breast lump, nipple discharge, breast pain or breast enlargement Musc Musculoskeletal: Yes arthritis; no back problems, rheumatoid arthritis, gout or joint pain Cardio Cardiovascular: Yes high blood pressure; no murmur, pacemaker, heart disease, atrial fibrillation, heart attack, heart stent, palpitations, shortness of breat with exertion or chest pain Psych Psychiatric: No depression, anxiety or hearing voices Resp Respiratory: No shortness of breath, No sleep apnea, No cough, No COPD, No asthma, No emphysema, No wheezing Gastro Gastrointestinal: No abdominal pain, No nausea or vomiting, No diarrhea, No constipation, No blood in stool, No acid reflux, No hemorrhoids, No ulcers, No gallbladder problem, No black,tarry stools Javan Hematologic: No blood thinners, No blood disorders, No bleeding, No anemia, No blood clots Neuro Neurologic: No system reviewed and no additional complaints, except as docu, No as per HPI, No abnormal walking, No abnormal hearing, No abnormal movements, No abnormal speech, No behavioral changes, No burning sensations, No confusion, No seizure-like activity, No unsteadiness, No dizziness, No localized weakness, No frequent falls, No headache(s), No lack of coordination, No loss of vision, No memory loss, No numbness, No other visual disturbances, No radiating pain, No restless legs, No sensory deficit, No fainting, No tingling, No tremor(s), No weakness, No other Exam Const General: no acute distress, well developed, well hydrated Orientation: oriented to person, oriented to place, oriented to time [facility] Head: normocephalic, atraumatic Ears: external ears normal Mouth: moist mucous membranes Eyes Sclera: sclerae normal Pupils: normal by confrontation Neck Neck: no lymphadenopathy noted Neck mass: No Thyroid: thyroid normal, symmetrical Chest Chest palpation & inspection: normal inspection of the chest Breast inspection: normal inspection of the breasts Breast Palpation: No nipple discharge Other: Palpation of the right breast reveals Normal. Palpation of the left breast reveals Moderate bruising at the lateral aspect of the breast.. Axillary exam demonstrates no suspicious masses in either the left or right axilla. Resp Effort & Inspection: normal respiratory effort Auscultation: clear to auscultation bilaterally Percussion: percussion normal Cardio Rate: regular rate Rhythm: regular rhythm Heart Sounds: no murmurs GI Palpation: soft, no hepatosplenomegaly, no masses, nontender Rectal Exam: other Other: Rectal exam deferred. Extrem General: normal to inspection, no clubbing, cyanosis or edema Assessment & Plan Problems 1. Malignant neoplasm of upper-outer quadrant of left breast in female, estrogen receptor positive C50.412; Z17.0 Plan I have given the patient options for initial surgical treatment. Options are the following: lumpectomy followed by radiation therapy vs. mastectomy vs. mastectomy followed by immediate reconstruction. I have described the procedures to the patient. I have described the advantages and disadvantages of the options, but I have told the patient that among the options, the survival rate for breast cancer is the same. I have told the patient that with all the surgeries that a sentinel lymph node biopsy is required. I have described the procedure of sentinel lymph node biopsy to the patient. I have told the patient that if the biopsy is positive for metastatic disease, then a full axillary lymph node dissection is required. I have told the patient that adjuvant chemotherapy will be required should the lymph nodes reveal metastatic disease. Also, a full lymph node dissection will increase the risk for lymphedema, especially if there are 4 or more lymph nodes positive for metastatic disease and radiation to the axilla is also required. I have told the patient the risks of surgery, including but not limited to: infection, bleeding, scar tissue, seroma and persistent seroma, lymph leak, injury to any blood vessels, injury to any nerves (particularly the long thoracic, the thoracodorsal, and the second intercostal brachial and the resultant sequelae), lymphedema, cosmetic deformity, dysesthesias, wound infections, further surgery (especially if margins are not clear), complications of anesthesia, etc. the patient understands. The patient will think about the options and discuss it further with the family. The patient will contact me in the next few days when she decides what the patient wishes to do. I have answered all the patient?s questions at this point to her satisfaction and she has no further questions. Patient will undergo an ultrasound-guided Wire localization left breast lumpectomy and sentinel lymph node biopsy. Coding Level of Care Code Off vis,est,level 3 Diagnoses Malignant neoplasm of upper-outer quadrant of left breast in female, estrogen receptor positive C50.412; Z17.0 ??Breast location: upper outer quadrant of breast ??Estrogen receptor status: positive ??Laterality: left COVID (Procedure Consent) Procedure Criteria Procedure Criteria: Yes Elective The surgeon/proceduralist and patient have discussed in detail the risk of exposure to and/or potential harm posed by the COVID-19 virus with having a surgery/procedure at this time versus the risk of? delaying the surgery/procedure. It is not possible to know either the risk of delaying the surgery or procedure or chance of getting an infection with perfect accuracy, but a joint decision was made between the patient and the surgeon/proceduralist ?to proceed at this time with the scheduled surgery/procedure as indicated on the consent form. 05/03/20 1203 <Electronically signed by Benny Tabor MD> Date Benny Tabor MD [facility] Signature: Date (if applicable) CC: Dr. Cassie Nuno MD ~ I have re-examined the patient. There are no clinical changes since date of exam.
[2020-05-03] MEDS: Cefazolin 2 GM in 0.9% Normal Saline 100 ML IV (12:50)
--- NOTE | 2020-05-03 12:59 | DCINST_ITS ---
Discharge Diet: No Restrictions Discharge Activity: May Not Drive - for 2-3 days or while taking narcotic pain meds. May shower in (days): 1 Lifting Restrictions: 10 pounds for 1 week. Call your doctor if your incision/area has: Continuous Slow Oozing, Sudden In creased Bleeding Call your doctor if you observe: Fever of 101 or Higher Suture Line Care: Avoid Pulling/Pushing, Avoid Pinching/Bending Remove Dressing in (days):: 1 - Remove bulky dressing tomorrow. May leave any opsite dressing for 3-4 days. Keep dressing in place until your follow-up appointment. Additional Dressing/Incision Instructions:: Remove bulky dressing tomorrow. May leave any opsite dressing for 3-4 days. Keep dressing in place until your follow-up appointment. Allergies/Adverse Reactions: Allergies No Known Allergies Allergy (Verified 05/03/20 10:41) Medications to take at Discharge Calcium Carbonate [Calcium] 1,200 mg PO BID 04/20/19 Glucos Sul 2Kcl/MSM/Chond/C/Mn [Glucosamine Chondroitin Cap] 2 ea PO BID 04/20/19 L.acidoph,Paracasei, B.lactis [Probiotic] 1 ea PO DAILY 04/20/19 lisinopril 5 mg tablet 5 mg PO DAILY #90 tab 11/06/19 Elderberry Syrup 10 ml PO DAILY 04/28/20 Essential Immune Pill 2 tab PO DAILY 04/28/20 Trucalm 1 tab PO TID 04/28/20 Oxycodone HCl/Acetaminophen [Percocet 5/325] 1 - 2 tablet PO Q4H PRN PRN 6 Days #30 tablet 05/03/20 The following prescriptions were given: Oxycodone HCl/Acetaminophen [Percocet 5/325] 1 - 2 tablet PO Q4H PRN PRN 6 Days #30 tablet PRN Reason: Pain Transmission Status: Sent to [facility] Primary Care Physician: Cassie Nuno MD [Primary Care Provider] -
--- NOTE | 2020-05-03 13:00 | OP.PCM_ITS ---
Problem List (1) Breast cancer, female Status: Acute Qualifiers: Breast location: lower outer quadrant of breast Estrogen receptor status: positive Laterality: left Qualified Code(s): C50.512 - Malignant neoplasm of lower-outer quadrant of left female breast; Z17.0 - Estrogen receptor positive status [ER+] Report of Operation Date of Procedure: 05/03/20 Pre-Operative Diagnosis: Female left breast cancer estrogen receptor positive Post-Operative Diagnosis: Same Surgery/Procedure Performed:: 1. Injection of 5 cc of Lymphazurin blue. 2. Ultrasound-guided wire localization left breast lumpectomy. 3. left sentinel lymph node biopsy Type of Anesthesia:: General Anesthesiologist: Shalom Pastor Specimen's removed: Left breast lumpectomy. Left axillary sentinel lymph node Drains: None Estimated Blood Loss (mL): < 25 cc Description of Procedure: Patient was brought into the operating room. Placed in the supine position. Under excellent general anesthetic I then placed a Kopan's wire under ultrasound guidance down to and through the malignancy. I then prepped the breast with alcohol. I injected 5 cc of Lymphazurin blue circumareolar Jalen. The left breast was then sterilely prepped and draped in the usual fashion. An incision was made in the outer aspect of the breast at the 3 o'clock position going around my previous biopsy site. I used electrocautery and circumferentially went down and around this lesion. I went all the way down to the pectoralis major muscle. I removed the lesion in its entirety I had excellent hemostasis. I marked the lesion with double long inferiorly, single long medially, wire and skin came out laterally, and 3 surgical clips were posterior on the muscle. This was sent to radiology where it was x-rayed clip was identified the tumor was then sent to pathology. Through my incision I was able to dissect up into the axillary area I went through the clavipectoral fascia and immediately identified blue lymphatics extending down into the axilla. I used my [place] counter identified a hot lymph node I used the harmonic dissector and removed it in its entirety. I sent it to pathology where it came back negative on frozen section. Pathology said that I had margins that were good I irrigated out my wound. I brought the wound together in layers deep layer with 2-0 Vicryl subcu of 2-0 Vicryl deep dermal stitches of 3-0 Vicryl in a running 4-0 Monocryl. Dermabond was applied sterile dressings were applied and the patient tolerated the procedure well. - Admit VTE Documentation VTE Present on Admission: No VTE Mechan Device Prophylaxis: SCD's VTE Pharm Prophylaxis ordered?: No Reason prophylaxis not ordered:: Treatment Not Indicated [id number]: [id number] Partial mastectomy - +[id number], +[id number], +[id number]
[2020-05-03] MEDS: Isosulfan Blue 1% 5 ML Vial (13:05)
[2020-05-03] MEDS: Bupivacaine Mpf 0.5% 30 ML VIAL (13:05)
--- NOTE | 2020-05-03 13:30 | BI_ITS ---
SURGICAL BREAST SPECIMEN RADIOGRAPH CLINICAL: Document presence of tissue clip marker in biopsy specimen. FINDINGS: Specimen shows presence of tissue clip marker. Electronically Signed: Brown Dawkins, at 14:12 EST , Service support , BI/Breast Biopsy Specimen
[2020-05-03 14:05] VITALS: BP 105/58; BP 96/75; PULSE 81; RESP 14; TEMP 36.5; O2SAT 98
[2020-05-03 14:15] VITALS: BP 105/58; BP 128/64; PULSE 71; RESP 16; O2SAT 95
[2020-05-03 14:30] VITALS: BP 105/58; BP 121/62; PULSE 66; RESP 16; O2SAT 99
[2020-05-03 14:45] VITALS: BP 105/58; BP 128/61; PULSE 68; RESP 16; TEMP 36.9; O2SAT 97
[2020-05-03] MEDS: oxyCODONE 5 MG Tablet 10 MG PO (15:15)
[2020-05-03] MEDS: Acetaminophen 325 MG Tablet 650 MG PO (15:15)
[2020-05-03 15:50] VITALS: BP 105/58; BP 128/60; PULSE 77; RESP 16; TEMP 36.5; O2SAT 95
== END 2020-05-03 16:07 | disposition home or self-care (01) ==
LOC: SDC 10:20 → AC 10:23
PROVIDERS: PCP Internal Medicine; Referring Provider Surgery; Visit Provider Surgery
PROC: 0HBV0ZZ Excision of Bilateral Breast, Open Approach (ICD-10-PCS; CPT 19302; principal; 2020-05-03 12:45)
DX: C50.412 Malignant neoplasm of upper-outer quadrant of left female breast (principal); Z17.0 Estrogen receptor positive status [ER+]; Z20.828 Contact with and (suspected) exposure to other viral communicable diseases
CPT/HCPCS: 00400; 19301; 38525; 38792; 76098; 87426; 88305; 88307; 88331; 88332; 88341; 88342; A9541; C9803; J2405; Q9968

== ENCOUNTER → 2020-05-30 14:23 | Outpatient (CLI) | payer MEDICARE, OTHER, SELFPAY ==
[2020-05-30 13:58] VITALS: BMI 38.7
[2020-05-30 17:18] LABS: Absolute Lymphocyte Count 1.06 X10^3/uL (0.83-4.51); Absolute Neutrophil Count 3.5 X10^3/uL (2.0-7.7); Basophil# 0.03 X10^3/uL; Basophil% 0.6 % (0-1); Eosinophil# 0.04 X10^3/uL; Eosinophils% 0.8 % (0-5); Hematocrit 43.9 % (37-47); Hemoglobin 13.9 g/dL (12.0-15.0); Lymphocyte # 1.06 X10^3/ul (4.0); Lymphocyte % 20.7 % (19-41); Mean Corp Hgb Conc 31.7 g/dL (32-36); Mean Corpuscular Hgb 31.2 pg (27.0-32.0); Mean Corpuscular Volume 98.4 fL (81-99); Mean Platelet Vol. 10.7 fl (6.2-12.0); Monocyte# 0.48 X10^3/uL; Monocyte% 9.4 % (0-10); NRBC Flagged by Analyzer 0 % (0-5); Neutrophil % 68.1 % (47-70); Platelet Count 159 K/mm3 (150-450); RBC Distribution Width CV 12.8 % (11.6-14.6); RBC Distribution Width SD 45.8 fl (35.1-43.9); Red Blood Count 4.46 M/mm3 (4.2-5.4); White Blood Count 5.1 K/mm3 (4.4-11.0)
[2020-05-30 17:37] LABS: ALB/GLOB Ratio 1.1 RATIO (0.9-2.4); AST(SGOT) 24 U/L (15-37); Alanine Aminotransfer ALT/SGPT 44 U/L (13-56); Alkaline Phosphatase 96 U/L (45-117); Anion Gap 6 (5-15); BUN 15 mg/dL (7-18); BUN/Creat Ratio 20.6 RATIO (10-20); Calcium,Total 9.4 mg/dL (8.5-10.1); Chloride 106 mmol/L (98-107); Cholesterol 184 mg/dL (200); Creatinine, Serum 0.73 mg/dL (0.55-1.02); EST Glomerular Filtration Rate 84 mL/min (>60); Est Glom Filt Rate - Afr Amer 101 mL/min (>60); Globulin 3.6 g/dL (2.2-4.2); Glucose 114 mg/dL (74-106); High Density Lipoprotein 68 mg/dL; Protein, Total 7.6 g/dL (6.4-8.2); Sodium Level 141 mmol/L (136-145); Triglycerides 118 mg/dL; Very Low Density Lipoprotein 24 mg/dL (5-40)
[2020-05-30 17:39] LABS: Hemoglobin A1c 6.1 % (3.8-5.6)
[2020-05-30 18:11] LABS: Microalbumin,Random Urine < 5.0 mg/L (NO RANGE EST.)
== END ==
PROVIDERS: PCP Internal Medicine; Referring Provider Internal Medicine; Visit Provider Internal Medicine
DX: E11.9 Type 2 diabetes mellitus without complications (principal); I10 Essential (primary) hypertension
CPT/HCPCS: 36415; 80053; 80061; 82043; 82570; 83036; 85025

== ENCOUNTER → 2020-11-28 11:29 | Outpatient (CLI) | payer MEDICARE, OTHER, SELFPAY ==
[2020-11-28 10:52] VITALS: BMI 38.7
[2020-11-28 12:44] LABS: Anion Gap 8 (5-15); BUN 9 mg/dL (7-18); BUN/Creat Ratio 12.3 RATIO (10-20); Calcium,Total 9.3 mg/dL (8.5-10.1); Chloride 102 mmol/L (98-107); Creatinine, Serum 0.73 mg/dL (0.55-1.02); EST Glomerular Filtration Rate 83 mL/min (>60); Est Glom Filt Rate - Afr Amer 100 mL/min (>60); Glucose 346 mg/dL (74-106); Potassium 5.1 mmol/L (3.5-5.1); Sodium Level 137 mmol/L (136-145)
== END ==
PROVIDERS: PCP Internal Medicine; Referring Provider Physician Assistant; Visit Provider Physician Assistant
DX: E11.9 Type 2 diabetes mellitus without complications (principal); I10 Essential (primary) hypertension
CPT/HCPCS: 36415; 80048

== ENCOUNTER → 2021-03-23 10:43 | Outpatient (CLI) | payer MEDICARE, OTHER, SELFPAY ==
--- NOTE | 2021-03-23 10:46 | BI_ITS ---
MAMMOGRAPHY - BILATERAL SCREENING 3-D TOMOSYNTHESIS REASON FOR EXAM: Female, 71 years old. SCREENING PERTINENT HISTORY: No significant family history. TECHNIQUE: 2-D mammograms and 3-D Tomosynthesis of the breast (s) were performed. CAD was performed. COMPARISON: 03/22/2020 FINDINGS: The breast composition is composed of scattered fibroglandular density. Scattered benign calcifications are seen. No dense spiculated masses or suspicious microcalcifications are identified. No architectural distortion is identified. There is no skin thickening or retraction. There has been no significant change since the prior study. BI/SCRN MAMM (CAD)W/FREYA BILAT IMPRESSION: No mammographic signs of malignancy. Routine yearly mammograms recommended. ASSESSMENT CATEGORY: BIRADS Category 1: Negative. A letter regarding these results will be sent to the patient by the facility within 30 days. FOLLOW UP RECOMMENDATION: Yearly follow up mammogram recommended. (A) Approximately 10% of breast cancers are not detected by mammography. A normal mammogram should not delay biopsy of a clinically suspicious abnormality. Electronically Signed: Roberto Molina MD at 13:28 EDT Tel , Service support ,
== END ==
PROVIDERS: PCP Internal Medicine; Referring Provider Nurse Practitioner; Visit Provider Nurse Practitioner
DX: Z12.31 Encounter for screening mammogram for malignant neoplasm of breast (principal); C50.412 Malignant neoplasm of upper-outer quadrant of left female breast; Z17.0 Estrogen receptor positive status [ER+]
CPT/HCPCS: 77063; 77067

== ENCOUNTER → 2021-05-30 13:53 | Outpatient (CLI) | payer MEDICARE, OTHER, SELFPAY ==
[2021-05-30 15:19] LABS: Absolute Lymphocyte Count 1.28 X10^3/uL (0.83-4.51); Absolute Neutrophil Count 3.2 X10^3/uL (2.0-7.7); Basophil# 0.03 X10^3/uL; Basophil% 0.6 % (0-1); Eosinophil# 0.07 X10^3/uL; Eosinophils% 1.3 % (0-5); Hematocrit 40.6 % (37-47); Hemoglobin 13.7 g/dL (12.0-15.0); Lymphocyte # 1.28 X10^3/ul (0.83-4.51); Lymphocyte % 24.3 % (19-41); Mean Corp Hgb Conc 33.7 g/dL (32-36); Mean Corpuscular Hgb 33.1 pg (27.0-32.0); Mean Corpuscular Volume 98.1 fL (81-99); Monocyte# 0.67 X10^3/uL; Monocyte% 12.7 % (0-10); NRBC Flagged by Analyzer 0 % (0-5); Neutrophil % 60.7 % (47-70); Platelet Count 160 K/mm3 (150-450); RBC Distribution Width CV 12.3 % (11.6-14.6); RBC Distribution Width SD 44.7 fl (35.1-43.9); Red Blood Count 4.14 M/mm3 (4.2-5.4); White Blood Count 5.3 K/mm3 (4.4-11.0)
[2021-05-30 15:42] LABS: ALB/GLOB Ratio 1.2 RATIO (0.9-2.4); AST(SGOT) 19 U/L (15-37); Alanine Aminotransfer ALT/SGPT 25 U/L (13-56); Alkaline Phosphatase 104 U/L (45-117); Anion Gap 7 (5-15); BUN 20 mg/dL (7-18); BUN/Creat Ratio 26.7 RATIO (10-20); Calcium,Total 9.8 mg/dL (8.5-10.1); Chloride 106 mmol/L (98-107); Cholesterol 196 mg/dL (200); Creatinine, Serum 0.75 mg/dL (0.55-1.02); EST Glomerular Filtration Rate 81 mL/min (>60); Est Glom Filt Rate - Afr Amer 98 mL/min (>60); Globulin 3.4 g/dL (2.2-4.2); Glucose 104 mg/dL (74-106); High Density Lipoprotein 64 mg/dL; Potassium 5.1 mmol/L (3.5-5.1); Protein, Total 7.4 g/dL (6.4-8.2); Sodium Level 139 mmol/L (136-145); Triglycerides 165 mg/dL; Very Low Density Lipoprotein 33 mg/dL (5-40)
[2021-05-30 15:57] LABS: Hemoglobin A1c 5.4 % (3.8-5.6)
== END ==
PROVIDERS: PCP Internal Medicine; Visit Provider Internal Medicine
DX: I10 Essential (primary) hypertension (principal); E11.9 Type 2 diabetes mellitus without complications
CPT/HCPCS: 36415; 80053; 80061; 83036; 85025

== ENCOUNTER 2021-11-04 10:40 | Observation (INO) | payer MEDICARE, OTHER, SELFPAY ==
[2021-11-04] VITALS (7 sets, daily range): BP systolic 105–176; BP diastolic 37–61; PULSE 78–102; RESP 16–18; TEMP 36.4–38.5; O2SAT 94–99; BMI 41.3; BMI 40.9
--- NOTE | 2021-11-04 13:35 | CT_ITS ---
We are attempting to reach an attending provider to discuss findings. An addendum with communication details will be sent when the communication is complete. STUDY: CT ABDOMEN AND PELVIS WITH CONTRAST REASON FOR EXAM: Female, 71 years old. Right lower quadrant pain RADIATION DOSAGE (If Supplied By Facility): CTDIvol = ( 18.33 ) mGy, DLP = ( 1159.85 ) mGycm TECHNIQUE: Transaxial images were obtained from the dome of the diaphragm to the symphysis pubis with oral contrast. Oral and amp; IV Gastrografin and amp; 100mL Isovue-370 was administered. Sagittal and coronal images were reconstructed. Individualized dose optimization techniques were used for this CT. COMPARISON: None. FINDINGS: The visualized lung bases demonstrate partially visualized 3 mm right middle lobe nodule. The visualized portions of the heart are within normal limits. Fatty infiltration of the liver. Low-density liver lesions, the largest is anterior segment right lobe measuring about 1.7 cm with attenuation values suggestive of cysts. There are surgical clips in the gallbladder fossa consistent with a prior cholecystectomy. Normal spleen. 8 mm low-density lesion near the junction of the body and head of the pancreas with low attenuation values could represent cyst or fatty lesion. Normal bilateral adrenal glands. Normal right kidney. 1 cm cyst in the lower pole of the left kidney. No evidence of hydronephrosis. Normal visualized stomach. Normal small intestine. No evidence of acute diverticulitis. There is a tubular, thick-walled appendix (>7mm) with periappendiceal stranding consistent with acute appendicitis. No evidence of free air or drainable abscess. There is diffuse atherosclerotic calcification of the abdominal aorta, without a demonstrated aneurysm. Normal inferior vena cava. Normal retroperitoneum. Normal urinary bladder. Normal abdominal wall. There are diffuse degenerative changes of the visualized lumbar spine. CT/Abdomen/Pelvis WITH Contrast IMPRESSION: 1. Thickening of the appendix with periappendiceal inflammatory changes consistent with acute appendicitis. 2. Fatty infiltration of the liver. 3. Probable liver and pancreatic cysts. Electronically Signed: Alex Bledsoe MD at 15:48 EDT ,
[2021-11-04 14:02] LABS: AST(SGOT) 26 U/L (15-37); Alanine Aminotransfer ALT/SGPT 26 U/L (13-56); Albumin, Serum 3.6 g/dL (3.2-5.0); Alkaline Phosphatase 86 U/L (45-117); Anion Gap 7 (5-15); BUN 13 mg/dL (7-18); BUN/Creat Ratio 15.9 RATIO (10-20); Calcium,Total 9.7 mg/dL (8.5-10.1); Chloride 106 mmol/L (98-107); Creatinine, Serum 0.82 mg/dL (0.55-1.02); EST Glomerular Filtration Rate 73 mL/min (>60); Est Glom Filt Rate - Afr Amer 88 mL/min (>60); Globulin 3.6 g/dL (2.2-4.2); Glucose 203 mg/dL (74-106); Potassium 4.1 mmol/L (3.5-5.1); Protein, Total 7.2 g/dL (6.4-8.2); Sodium Level 138 mmol/L (136-145)
[2021-11-04 14:09] LABS: Absolute Lymphocyte Count 1.13 X10^3/uL (0.83-4.51); Absolute Neutrophil Count 10.4 X10^3/uL (2.0-7.7); Basophil# 0.03 X10^3/uL; Basophil% 0.2 % (0-1); Eosinophil# 0.05 X10^3/uL; Eosinophils% 0.4 % (0-5); Hematocrit 43.3 % (37-47); Hemoglobin 14.5 g/dL (12.0-15.0); Lymphocyte # 1.13 X10^3/ul (0.83-4.51); Lymphocyte % 8.8 % (19-41); Mean Corp Hgb Conc 33.5 g/dL (32-36); Mean Corpuscular Volume 98.4 fL (81-99); Mean Platelet Vol. 9.6 fl (6.2-12.0); Monocyte# 1.16 X10^3/uL; NRBC Flagged by Analyzer 0 % (0-5); Neutrophil % 81.1 % (47-70); Platelet Count 142 K/mm3 (150-450); RBC Distribution Width CV 12.8 % (11.6-14.6); RBC Distribution Width SD 46.2 fl (35.1-43.9); White Blood Count 12.8 K/mm3 (4.4-11.0)
[2021-11-04 14:30] LABS: Mucous, Urine 0 SEEN /hpf (<or=2+); Red Blood Cells-Urine 0 SEEN /hpf (0-5); Squamous Epithelial Cells - UA 0 SEEN /hpf (5-10)
[2021-11-04 14:33] LABS: Color, Urine Yellow (Yellow); Glucose, Dipstick Normal (Normal); Ketone-Dipstick 5 mg/dl (Negative); Leukocyte Esterase-Dipstick 500 /ul (Negative); Nitrite-Dipstick Positive (Negative); Occult Blood-Urine 10 /ul (Negative); Protein-Dipstick Negative (Negative); Urine Bilirubin Dipstick Negative (Negative); Urine Clarity Clear (Clear); Urine Urobilinogen Normal (Normal)
--- NOTE | 2021-11-04 14:39 | ED.RN ---
See downtime chart for previous documentation.
[2021-11-04 14:42] LABS: Bacteria 2+ /hpf (None Seen); White Blood Cells 5-10 SEEN /hpf (0-5)
--- NOTE | 2021-11-04 15:57 | EDS_ITS ---
HPI HPI - GI History of Present Illness Chief Complaint: Abd Pain Informant: patient Abdominal Pain/Flank Pain Onset: Yesterday Context: Sudden Onset Timing: Continuous Quality: Sharp Location: RLQ Worsened by: Nothing Relieved by: Nothing Nausea/Vomiting/Emesis GI Symptom: Negative for Nausea and Vomiting Diarrhea/Melena/Hematochezia GI Symptom: Negative for Diarrhea, Melena and Hematochezia Associated Symptoms Associated Symptoms: Negative for Dysuria, Frequency and Hematuria Narrative Narrative: Presents with abdominal pain that began yesterday. Patient states it began rather suddenly yesterday. Patient states it began in the right lower quadrant. Patient describes her pain as sharp. Patient states the pain is constant. Patient states nothing makes it worse and nothing makes it better. Patient denies any nausea or vomiting. Patient denies any diarrhea, melena, or hematochezia. Patient denies any dysuria, hematuria, or frequency. Patient states the last time she had anything to eat or drink was approximately 8:45 AM today. [facility] Medical History Abnormal mammogram of left breast Acute suppurative otitis media of left ear with spontaneous rupture of ear drum Arthritis Breast cancer, left COVID-19 Diabetes Flu vaccine need Gallstones h/o radiation to left breast history of broken wrist Osteoarthritis Home Medications L.acidoph, paracasei,B. lactis 1 ea PO DAILY 04/20/19 [History Last Taken Unknown] calcium carbonate 1,200 mg PO BID 04/20/19 [History Last Taken Unknown] Elderberry Syrup 10 ml PO DAILY 04/28/20 [History Last Taken Unknown] Essential Immune Pill 2 tab PO DAILY 04/28/20 [History Last Taken Unknown] Trucalm 1 tab PO TID 04/28/20 [History Last Taken Unknown] anti-estrogen pill-[place] of name PO DAILY 08/30/20 [History Last Taken Unknown] glucosamine sulf dipot chlr,msm,chond 550 mg-C 30 mg-hossein 1 mg capsule 2 cap PO TID cap 08/30/20 [History Last Taken Unknown] lisinopril 5 mg tablet 5 mg PO DAILY #90 tab 11/28/20 [Rx Last Taken Unknown] curalin PO 01/16/21 [History Last Taken Unknown] Allergy/AdvReac Type Severity Reaction Status Date / Time acetaminophen [From Percet] AdvReac Intermediate Vomiting Verified 05/30/21 13:34 oxycodone [From Percocet] AdvReac Intermediate Vomiting Verified 05/30/21 13:34 Family History Sister Thyroid disorder Cancer uterine/stomach/facial Arthritis Sister Thyroid disorder Hypertension Sleep apnea Sister Thyroid disorder Brother Hypertension Diabetes Surgical History History of section History of cholecystectomy History of knee replacement History of lumpectomy of left breast (~04/2020) s/p left total knee arthroplasty Social History Smoking Status: Never smoker second hand exposure: No alcohol intake: never substance use type: does not use what type of physical activity do you participate in: other details: exercise bike frequency: daily duration: 15-30 minutes/day ROS ROS ED Constitutional Constitutional ED: Denies chills or fever(s) Eyes Eyes: Denies blurry vision or change in vision ENT ENT ED: Denies rhinorrhea or sore throat Cardiovascular Cardiovascular: Denies chest pain or palpitations Respiratory/Chest Respiratory/Chest: Denies cough or dyspnea Gastrointestinal Gastrointestinal: Reports abdominal pain; Denies diarrhea, nausea or vomiting Genitourinary Genitourinary ED: Denies dysuria or hematuria Musculoskeletal Musculoskeletal: Denies back pain or neck pain Integumentary Denies abscess or rash Neurologic Neurologic: Denies headache(s) or weakness Allergic/Immunologic Allergic/Immunologic ED: Denies mouth swelling or urticaria EXAM Physical Exam Const Positive well nourished, well developed and obese General Appearance ED: well developed and NAD Nutritional Appearance: obese HEENT Reports moist mucous membranes Neck supple and no JVD Resp normal respiratory effort and clear to auscultation bilaterally Cardio regular rate, regular rhythm and no murmurs GI normal to inspection, nondistended, normoactive bowel sounds Auscultation: normoactive bowel sounds Palpation: soft, tender RLQ and RUQ and guarding; Negative for rebound tenderness present Extremity normal to inspection General Extremety ED: Negative for edema or tenderness General Extremity: Negative for edema Neuro oriented x3, CN's II-XII intact bilaterally and no sensory deficits noted Sensorium / Orientation: alert Motor Exam: strength 5/5 throughout Psych mental status grossly normal Skin no rashes or lesions noted MDM MDM MDM Narrative Medical decision making narrative: Patient was given IV fluids, morphine, and Zofran. CBC shows a mild leukocytosis of 12.8. Platelets were 142. Comprehensive metabolic profile showed a slightly elevated glucose of 203 but was otherwise within normal limits. Urinalysis shows leukocyte Estrace of 500 with 5-10 white blood cells and 2+ bacteria. CT scan of the abdomen and pelvis was obtained. There is thickening of the appendix with periappendiceal inflammatory changes consistent with acute appendicitis. This was interpreted by the radiologist and reviewed by myself. Patient was advised of her findings. Patient was started on Zosyn. Case was discussed with Dr. Austin. She also recommended obtaining an EKG. This was ordered. On my interpretation, it shows a normal sinus rhythm with a rate of 87. OR interval, QRS several, QTc interval were all normal. [place] was normal. There are no acute ST or T wave changes. Urine culture was ordered. COVID-19 rapid antigen was obtained. Patient will be admitted for appendectomy. Patient and family understand and are agreeable with the plan. All questions were answered. Lab Data Attestation: I reviewed the patient's lab results. Labs: Laboratory Results - last 24 hr 11/04/21 11/04/21 11/04/21 11:40 12:48 14:20 WBC 12.8 H RBC 4.40 Hgb 14.5 Hct 43.3 MCV 98.4 MCH 33.0 H MCHC 33.5 RDW Std Deviation 46.2 H RDW Coeff of Luis Angel 12.8 Plt Count 142 L MPV 9.6 Immature Gran % (Auto) 0.500 Neut % (Auto) 81.1 H Lymph % (Auto) 8.8 L [place] % (Auto) 9.0 Eos % (Auto) 0.4 Baso % (Auto) 0.2 Absolute Neuts (auto) 10.4 H Absolute Lymphs (auto) 1.13 Nucleated RBC % 0 Sodium 138 Potassium 4.1 Chloride 106 Carbon Dioxide 25.0 Anion Gap 7 BUN 13 Creatinine 0.82 Est GFR (MDRD) Af Amer 88 Est GFR (MDRD) Non-Af 73 BUN/Creatinine Ratio 15.9 Glucose 203 H Calcium 9.7 Total Bilirubin 0.60 AST 26 ALT 26 Alkaline Phosphatase 86 Total Protein 7.2 Albumin 3.6 Globulin 3.6 Albumin/Globulin Ratio 1.0 Urine Color Yellow Urine Clarity Clear Urine pH 7.0 Ur Specific [place] 1.030 Urine Protein Negative Urine Glucose (UA) Normal Urine Ketones 5 H Urine Occult Blood 10 H Urine Nitrite Positive H Urine Bilirubin Negative Urine Urobilinogen Normal Ur Leukocyte Esterase 500 H Urine RBC 0 SEEN Urine WBC 5-10 SEEN Ur Squamous Epith Cells 0 SEEN Urine Bacteria 2+ Urine Mucus 0 SEEN Radiography Diagnostic Testing: Clinical Impression(s) from Imaging Studies Abdomen/Pelvis CT 11/04/21 13:35 IMPRESSION: 1. Thickening of the appendix with periappendiceal inflammatory changes consistent with acute appendicitis. 2. Fatty infiltration of the liver. 3. Probable liver and pancreatic cysts. Electronically Signed: Alex Bledsoe MD at 15:48 EDT , ADDENDUM: 11/04/21 1603 IMPRESSION: 1. Thickening of the appendix with periappendiceal inflammatory changes consistent with acute appendicitis. 2. Fatty infiltration of the liver. 3. Probable liver and pancreatic cysts. N.B. : The above Results were Read Back by Alex Bledsoe MD to Ghassan Choe DO, and understanding confirmed on 11/04/2021 15:56:53 (ET). Electronically Signed: Alex Bledsoe MD at 15:48 EDT , Discharge Plan Dx/Rx/DC Orders Clinical Impression: Acute appendicitis, Urinary tract infection Disposition Disposition: Acute Care Hospital [facility]
--- NOTE | 2021-11-04 16:08 | EKG12_ITS ---
Test Reason : ABD PAIN Blood Pressure : / mmHG Vent. Rate : 087 BPM Atrial Rate : 087 BPM P-R Int : 148 ms QRS Dur : 070 ms QT Int : 354 ms P-R-T Axes : 003 015 037 degrees QTc Int : 425 ms Normal sinus rhythm Normal ECG Confirmed by CHAPIS GROSS, ANDREW ([id number]), book or script editor TEOFILO WASSERMAN ([id number]) on 11/06/2021 7:19:50 AM Referred By: EDITH Confirmed By:ANDREW NATION MD
--- NOTE | 2021-11-04 16:53 | HP.PCM.SX_ITS ---
HPI - General General Date of Admission: 11/04/21 HPI Narrative HIEU SAGASTUME, is a 71 F who presents to the ER due to right-sided abdominal pain started yesterday morning. Patient was able to eat a small amount yesterday to eggs and a piece toast-- today only had a piece of toast. Patient states the pain is been about the same as yesterday. Patient denies any vomiting. Patient CT abdomen pelvis consistent with acute appendicitis. Patient states she had a colonoscopy 2 years ago. Patient is given Zosyn IV in the ER for acute appendicitis. UA was also consistent UTI on admit. Previous abdominal surgeries include an open cholecystectomy [facility] Medical History Abnormal mammogram of left breast Acute suppurative otitis media of left ear with spontaneous rupture of ear drum Arthritis Breast cancer, left COVID-19 Diabetes Flu vaccine need Gallstones h/o radiation to left breast history of broken wrist Osteoarthritis Home Medications L.acidoph, paracasei,B. lactis 1 ea PO DAILY 04/20/19 [History Last Taken Unknown] calcium carbonate 1,200 mg PO BID 04/20/19 [History Last Taken Unknown] Elderberry Syrup 10 ml PO DAILY 04/28/20 [History Last Taken Unknown] Essential Immune Pill 2 tab PO DAILY 04/28/20 [History Last Taken Unknown] Trucalm 1 tab PO TID 04/28/20 [History Last Taken Unknown] anti-estrogen pill-[place] of name PO DAILY 08/30/20 [History Last Taken Unknown] glucosamine sulf dipot chlr,msm,chond 550 mg-C 30 mg-hossein 1 mg capsule 2 cap PO TID cap 08/30/20 [History Last Taken Unknown] lisinopril 5 mg tablet 5 mg PO DAILY #90 tab 11/28/20 [Rx Last Taken Unknown] curalin PO 01/16/21 [History Last Taken Unknown] Allergy/AdvReac Type Severity Reaction Status Date / Time acetaminophen [From Percocet] AdvReac Intermediate Vomiting Verified 05/30/21 13:34 oxycodone [From Percocet] AdvReac Intermediate Vomiting Verified 05/30/21 13:34 Family History Sister Thyroid disorder Cancer uterine/stomach/facial Arthritis Sister Thyroid disorder Hypertension Sleep apnea Sister Thyroid disorder Brother Hypertension Diabetes Surgical History History of section History of cholecystectomy History of knee replacement History of lumpectomy of left breast (~04/2020) s/p left total knee arthroplasty Social History Smoking Status: Never smoker second hand exposure: No alcohol intake: never substance use type: does not use what type of physical activity do you participate in: other details: exercise bike frequency: daily duration: 15-30 minutes/day Results Lab / Micro Data Result Diagrams: 11/04/21 12:48 11/04/21 11:40 Labs: Laboratory Results - last 24 hr 11/04/21 11:40: Sodium 138, Potassium 4.1, Chloride 106, Carbon Dioxide 25.0, Anion Gap 7, BUN 13, Creatinine 0.82, Est GFR (MDRD) Af Amer 88, Est GFR (MDRD) Non-Af 73, BUN/Creatinine Ratio 15.9, Glucose 203 H, Calcium 9.7, Total Bilirubin 0.60, AST 26, ALT 26, Alkaline Phosphatase 86, Total Protein 7.2, Albumin 3.6, Globulin 3.6, Albumin/Globulin Ratio 1.0 11/04/21 12:48: WBC 12.8 H, RBC 4.40, Hgb 14.5, Hct 43.3, MCV 98.4, MCH 33.0 H, MCHC 33.5, RDW Std Deviation 46.2 H, RDW Coeff of Luis Angel 12.8, Plt Count 142 L, MPV 9.6, Immature Gran % (Auto) 0.500, Neut % (Auto) 81.1 H, Lymph % (Auto) 8.8 L, [place] % (Auto) 9.0, Eos % (Auto) 0.4, Baso % (Auto) 0.2, Absolute Neuts (auto) 10.4 H, Absolute Lymphs (auto) 1.13, Nucleated RBC % 0 11/04/21 14:20: Urine Color Yellow, Urine Clarity Clear, Urine pH 7.0, Ur Specific [place] 1.030, Urine Protein Negative, Urine Glucose (UA) Normal, Urine Ketones 5 H, Urine Occult Blood 10 H, Urine Nitrite Positive H, Urine Bilirubin Negative, Urine Urobilinogen Normal, Ur Leukocyte Esterase 500 H, Urine RBC 0 SEEN, Urine WBC 5-10 SEEN, Ur Squamous Epith Cells 0 SEEN, Urine Bacteria 2+, Urine Mucus 0 SEEN Radiology Impression Abdomen/Pelvis CT 11/04/21 13:35 IMPRESSION: 1. Thickening of the appendix with periappendiceal inflammatory changes consistent with acute appendicitis. 2. Fatty infiltration of the liver. 3. Probable liver and pancreatic cysts. Electronically Signed: Alex Bledsoe MD at 15:48 EDT , ADDENDUM: 11/04/21 1603 IMPRESSION: 1. Thickening of the appendix with periappendiceal inflammatory changes consistent with acute appendicitis. 2. Fatty infiltration of the liver. 3. Probable liver and pancreatic cysts. N.B. : The above Results were Read Back by Alex Bledsoe MD to Ghassan Choe DO, and understanding confirmed on 11/04/2021 15:56:53 (ET). Electronically Signed: Alex Bledsoe MD at 15:48 EDT , Assessment & Plan Assessment/Plan (1) Acute appendicitis: (2) Urinary tract infection: PLAN: 1. Discussed procedure laparoscopic appendectomy, possible open along with the risk but not limited to bleeding, infection/abscess, injury to another organ (small bowel, colon, etc.), adhesion, hernia at incision sites, and anesthesia. Patient and her family no further question this time. 2. UTI on admit culture pending Mine Austin M.D. Pager: [phone] [facility] [address] [place] [address], [address] [place] [address] Office: [phone] Procedure Criteria Type of Procedure Procedure Type: Elective Elective Risks - COVID COVID Risk Discussion: The surgeon/proceduralist and patient have discussed in detail the risk of exposure to and/or potential harm posed by the COVID-19 virus with having a surgery/procedure at this time versus the risk of delaying the surgery/procedure. It is not possible to know either the risk of delaying the surgery or procedure or chance of getting an infection with perfect accuracy, but a joint decision was made between the patient and the surgeon/proceduralist to proceed at this time with the scheduled surgery/procedure as indicated on the consent form.
--- NOTE | 2021-11-04 16:55 | APP_PTH ---
PATIENT: HIEU SAGASTUME LOC: MS3 U#:[id number] AGE/SX: 71/F ROOM: MD316 RE11/04/[address]: Dr. Mine Austin MD : [id number] BED: 1 DIS: 11/05/2021 SPEC #: [id number] RECD: 11/05/21 07:29 STATUS: BERE RODRÍGUEZ #: [id number] DOM: 11/04/21 16:[address]: Mine Austin DEPT: SURGICAL PATHOLOGY RECD BY: Rahul Valentino ENTERED: 11/05/21 08:34 SP TYPE: APPENDIX OTHR DR: Dr. Cassie Nuno MD Tissues: Appendix, NOS Procedures: Surgery Specimen Level III HEADER OPERATION: Laparoscopic appendectomy PRE-OP DIAGNOSIS: Acute appendicitis, urinary tract infection TISSUE SUBMITTED: Appendix MICROSCOPIC DIAGNOSIS Appendix, appendectomy: Acute necrotizing appendicitis. Acute serositis. AM:jose 11/06/2021 MICROSCOPIC DESCRIPTION Slides are reviewed. GROSS DESCRIPTION Received in fixative is one container labeled with the patient's name and designated appendix. The specimen consists of an appendix measuring 6 cm in length and up to 1.2 cm in diameter. The attached periappendiceal adipose tissue measures up to 2.5 cm in width. The serosa is congested and hemorrhagic. No obvious perforation is identified. No fecalith is identified. [place] [place] Super[employer] sections are submitted in one cassette. / SJ:jose 11/05/2021 TC:2 CPT: 47565
[2021-11-04] MEDS: Bupivacaine Mpf 0.5% 30 ML VIAL (18:55)
--- NOTE | 2021-11-04 19:06 | PCM.OPRPT ---
Report of Operation Date of Procedure: 11/04/21 Pre-Operative Diagnosis: Acute appendicitis Post-Operative Diagnosis: Same Surgery/Procedure Performed:: Laparoscopic appendectomy Surgeon: Mine Austin Type of Anesthesia: General/Supplemental Anesthesiologist: Avila Rea Special Medications: Zosyn 4.5 IV x1 started in ER Specimen's removed: Appendix Estimated Blood Loss (mL): < 10cc Description of Procedure: Indications: 71-year-old male presented to the ER with new right lower quadrant pain yesterday morning. On workup she was found to have acute appendicitis on CT and a leukocytosis of 12.8. Patient was started on antibiotics in the ER for acute appendicitis-Zosyn IV Description of the procedure: The patient was placed on operating table in supine position. General anesthesia was induced. A timeout was completed verifying correct patient, procedure, position and special equipment prior to beginning procedure. Abdomen was prepped and draped in usual sterile fashion. Incision was made in the natural skin line above the umbilicus with a 15 blade scalpel. The fascia was elevated and incised. Entry into the peritoneum was confirmed visually and no bowel was noted in the vicinity of the incision. The Davila trocar was placed under direct vision. Abdomen insufflated with a pressure of 12-15 mmHg. Patient tolerated insertion well. The scope was inserted and the abdomen inspected. No injuries from initial trocar placement were noted. Minimal amount of fluid was seen in the right lower quadrant. An direct visualization 2 -5 mm trocars were placed one above the symphysis pubis and below the hairline and one in the left lower quadrant lateral to the rectus muscle. Care is taken to avoid injury to the bladder and inferior epigastric vessels. The table was placed in Trendelenburg position with the right side elevated. The appendix was grasped with atraumatic grasper and elevated. It was noted to be inflamed. A window was developed in the mesoappendix at the point between the base of the appendix and the cecum. An endoscopic 45 mm linear cutting stapler blue load was then used to divide and staple the base of the appendix. Enseal was used to divide the mesoappendix. The appendix was withdrawn into the Davila trocar after being placed endoscopically retrieval bag. Appendix was sent to pathology. The appendiceal stump was then irrigated and hemostasis was assured. Fluid was suctioned no other pathology was identified. Secondary trochars were removed under direct visualization. No bleeding was noted trocar sites. The laparoscope withdrawn and the umbilical trocar removed. The abdomen was allowed to collapse. Local anesthesia of 28 mL of 0.5% Marcaine was used at the incision sites. The umbilical trocar site was closed with the [id number] 0 Vicryl suture. The skin was closed using sutures of 4-0 Monocryl and Steri-Strips. The patient was extubated. The patient tolerated the procedure well and was taken to the postanesthesia care unit in satisfactory condition. Complications none
[2021-11-04 20:06] LABS: Bedside Glucose 177 mg/dL (74-106)
[2021-11-04] MEDS: 0.9% Normal Saline 1,000 ML 100 ML IV (23:04)
[2021-11-04] MEDS: Timolol 0.5% 5ML OPTH.BTL 1 DRP EACH EYE (23:05)
[2021-11-04] MEDS: Latanoprost 0.005% 1 Bottle 1 DRP EACH EYE (23:06)
[2021-11-05 00:05] VITALS: O2SAT 93
[2021-11-05 01:15] VITALS: BP 109/48; PULSE 70; RESP 18; TEMP 37.1; O2SAT 97
[2021-11-05 05:15] VITALS: BP 128/57; PULSE 72; RESP 18; TEMP 36.7; O2SAT 93
--- NOTE | 2021-11-05 07:06 | PCM.PN.SRG ---
Subjective Subjective Patient admits some soreness at incisions. Patient's previous abdominal pain has resolved from before surgery. Patient has not asked for any pain meds all night currently requesting. Objective Data Objective Data Vital Signs: Vital Signs Temp Pulse Resp BP Pulse Ox 98.1 F 72 18 128/57 H 93 11/05/21 05:15 11/05/21 05:15 11/05/21 05:15 11/05/21 05:15 11/05/21 05:15 Oxygen Flow Rate (L/min) 2 Oxygen Delivery Method Room Air Weight: 216 lb 11.2 oz Body Mass Index (BMI) 40.9 Intake & Output: Intake and Output for Last 24 Hours 11/03/21 11/04/21 11/05/21 23:59 23:59 23:59 Intake Total 108.5 / 408.5 650 / 650 Output Total 350 / 350 Balance 108.5 / 408.5 300 / 300 Lab / Micro Data Result Diagrams: 11/04/21 12:48 11/04/21 11:40 Labs: Laboratory Results - last 24 hr 11/04/21 11:40: Sodium 138, Potassium 4.1, Chloride 106, Carbon Dioxide 25.0, Anion Gap 7, BUN 13, Creatinine 0.82, Est GFR (MDRD) Af Amer 88, Est GFR (MDRD) Non-Af 73, BUN/Creatinine Ratio 15.9, Glucose 203 H, Calcium 9.7, Total Bilirubin 0.60, AST 26, ALT 26, Alkaline Phosphatase 86, Total Protein 7.2, Albumin 3.6, Globulin 3.6, Albumin/Globulin Ratio 1.0 11/04/21 12:48: WBC 12.8 H, RBC 4.40, Hgb 14.5, Hct 43.3, MCV 98.4, MCH 33.0 H, MCHC 33.5, RDW Std Deviation 46.2 H, RDW Coeff of Luis Angel 12.8, Plt Count 142 L, MPV 9.6, Immature Gran % (Auto) 0.500, Neut % (Auto) 81.1 H, Lymph % (Auto) 8.8 L, [place] % (Auto) 9.0, Eos % (Auto) 0.4, Baso % (Auto) 0.2, Absolute Neuts (auto) 10.4 H, Absolute Lymphs (auto) 1.13, Nucleated RBC % 0 11/04/21 14:20: Urine Color Yellow, Urine Clarity Clear, Urine pH 7.0, Ur Specific [place] 1.030, Urine Protein Negative, Urine Glucose (UA) Normal, Urine Ketones 5 H, Urine Occult Blood 10 H, Urine Nitrite Positive H, Urine Bilirubin Negative, Urine Urobilinogen Normal, Ur Leukocyte Esterase 500 H, Urine RBC 0 SEEN, Urine WBC 5-10 SEEN, Ur Squamous Epith Cells 0 SEEN, Urine Bacteria 2+, Urine Mucus 0 SEEN 11/04/21 20:02: POC Glucose 177 H Micro: Microbiology 11/04/21 16:20 Nasal Secretion SARS-CoV-2 Antigen (Rapid) - Final Radiography Diagnostic Testing: Radiology Impression Abdomen/Pelvis CT 11/04/21 13:35 IMPRESSION: 1. Thickening of the appendix with periappendiceal inflammatory changes consistent with acute appendicitis. 2. Fatty infiltration of the liver. 3. Probable liver and pancreatic cysts. Electronically Signed: Alex Bledsoe MD at 15:48 EDT Reading Location ID and State: [facility] / [place] Tel , Service support , ADDENDUM: 11/04/21 1603 IMPRESSION: 1. Thickening of the appendix with periappendiceal inflammatory changes consistent with acute appendicitis. 2. Fatty infiltration of the liver. 3. Probable liver and pancreatic cysts. N.B. : The above Results were Read Back by Alex Bledsoe MD to Ghassan Choe DO, and understanding confirmed on 11/04/2021 15:56:53 (ET). Electronically Signed: Alex lBedsoe MD at 15:48 EDT , Physical Exam Resp normal respiratory effort Cardio regular rate GI GI Narrative: Abdomen: Soft, nondistended, tender near incision's dressed clean dry and intact, no peritoneal signs Assessment & Plan Assessment/Plan (1) S/P laparoscopic appendectomy: (2) Urinary tract infection: PLAN: Patient is doing well. Tolerating clears will have a regular breakfast this morning. If tolerates will DC home. Will check urine culture, plan for a couple more days of antibiotics for UTI. Mine Austin M.D. Pager: [phone] [facility] [address] [place] [address], [address] [place] [id number] Office: [phone]
[2021-11-05] MEDS: traMADol 50 MG Tablet PO (07:35)
[2021-11-05 09:01] VITALS: BP 110/53; PULSE 70; RESP 18; TEMP 36.9; O2SAT 95
[2021-11-05] MEDS: 0.9% Normal Saline 1,000 ML 100 ML IV (09:14)
[2021-11-05] MEDS: Lisinopril 5 MG Tablet PO (09:16)
[2021-11-05] MEDS: Timolol 0.5% 5ML OPTH.BTL 1 DRP EACH EYE (09:16)
[2021-11-05] MEDS: Anastrozole 1 MG TABLET PO (09:16)
--- NOTE | 2021-11-05 09:26 | EX.PCM.DISCH ---
Discharge Instructions Diet Discharge Diet: Light diet - advance as tolerated Activity Discharge Activity: May Not Drive (while taking narcotic pain medications.) May shower in (days): 1 Lifting Restrictions: no lifting >20 lbs x 2 wks, no strenuous exercise for 4 wks Dressing / Incision Call your doctor if your incision/area has: Continuous Slow Oozing, Sudden Increased Bleeding, Increased Pain/ Swelling, Increased Redness, Foul Smelling Discharge and Swelling at the incision site Call your doctor if you observe: Fever of 101 or Higher Remove Dressing in: 2 days Cleanse incision/area with: Soap & Water Additional Dressing/Incision Instructions:: Steri-Strips will fall off in 7 to 10 days, if they do not fall off okay to remove after 10 days. Follow Up Care Please Follow Up With: Mine Austin MD When: Call the office for a follow-up appointment 2 weeks; after 5 PM and on the weekends call [phone] with any concerns. Test Results: Test results from this visit will be discussed in further detail at your follow-up appointment, if applicable. Discharge Plan Admission Admit Date/Time: 11/04/21 16:55 Attending Provider: Mine Austin Primary Care Provider: Cassie Nuno Discharge Orders/Prescriptions Prescriptions: New tramadol 50 mg tablet 50 mg PO Q6H PRN (Reason: pain) Qty: 5 RF: 0 cefdinir 300 mg capsule 300 mg PO BID Qty: 6 RF: 0 Continued lisinopril 5 mg tablet 5 mg PO DAILY Qty: 90 RF: 3 latanoprost 0.005 % drops 1 drp EACH EYE QHS RF: 0 anastrozole 1 mg tablet 1 mg PO DAILY RF: 0 timolol maleate 0.5 % drops 1 drp EACH EYE BID RF: 0 Referrals / Follow Up: Cassie Nuno MD [Primary Care Provider] - Disposition Disposition (needs filled in before D/C Order can be placed): Home, Self Care
--- NOTE | 2021-11-05 11:54 | CASEMGMT ---
YUMIKO CM in to pt room, pt visiting with family, pt denies any homegoing needs.
[2021-11-05 14:31] VITALS: BP 120/41; PULSE 66; RESP 18; TEMP 36.8; O2SAT 94
--- NOTE | 2021-11-05 16:24 | PHA.DC.MR ---
Pharmacy Service has performed discharge medication reconciliation for this patient. The patient's discharge medication list was reviewed for discrepancies and discrepancies were resolved. Medication education papers prepared, patient D/C'ed before I was able to direct care counselor. Home Medications lisinopril 5 mg tablet 5 mg PO DAILY #90 tab 11/28/20 anastrozole 1 mg PO DAILY 11/04/21 latanoprost 1 drp EACH EYE QHS 11/04/21 timolol maleate 1 drp EACH EYE BID 11/04/21 cefdinir 300 mg PO BID #6 cap 11/05/21 tramadol 50 mg PO Q6H PRN #5 tab 11/05/21
== END 2021-11-05 15:16 | disposition home or self-care (01) ==
LOC: ED 16:02 → MS3 17:01
PROVIDERS: Admitting Provider Surgery; Emergency Provider Emergency Medicine; PCP Internal Medicine; Visit Provider Surgery
PROC: 0DTJ4ZZ Resection of Appendix, Percutaneous Endoscopic Approach (ICD-10-PCS; CPT 44970; principal; 2021-11-04 16:55)
DX: K35.80 Unspecified acute appendicitis (principal); Z68.41 Body mass index [BMI] 40.0-44.9, adult; E11.9 Type 2 diabetes mellitus without complications; K76.0 Fatty (change of) liver, not elsewhere classified; N39.0 Urinary tract infection, site not specified; M19.90 Unspecified osteoarthritis, unspecified site; Z86.16 Personal history of COVID-19; Z79.899 Other long term (current) drug therapy; E66.9 Obesity, unspecified
CPT/HCPCS: 44970; 00840; 99282; 36415; 74177; 80053; 81001; 82962; 85025; 87077; 87086; 87088; 87186; 87811; 88304; 93005; 96361; 96365; 96366; 96375; 99218; 99285; J7030; J7050; P9612; Q9967; A4216; C1760; G0378; J2405

== ENCOUNTER → 2022-03-26 | Outpatient (CLI) | payer MEDICARE, OTHER, SELFPAY ==
--- NOTE | 2022-03-26 08:20 | BI_ITS ---
MAMMOGRAPHY - BILATERAL SCREENING REASON FOR EXAM: Female, 72 years old. Routine annual screening examination. PERTINENT HISTORY: Personal history of breast cancer. Prior left lumpectomy and radiation treatment mother with breast cancer.. TECHNIQUE: Digital bilateral breast freya (3D mammographic acquisition) in the CC and MLO projections. 2-D mediolateral oblique (MLO) and craniocaudad (CC) views of both breasts were obtained. CAD: Full Field Digital Mammography with Computer Added Detection was performed. COMPARISON: Comparison is made with prior examination 03/23/2021 and 05/03/2020. FINDINGS: Breast Composition: There are scattered areas of fibroglandular density. There are no dominant masses or suspicious calcifications. The patient is status post lumpectomy in the deep upper lateral aspect of the left breast with resultant postoperative scarring. Stable diffuse bilateral microcalcifications more prominent in the left breast. Since prior study, the skin overlying the left breast has decreased in thickness. No other significant abnormalities are identified. There has been no significant change since the prior study. BI/SCRN MAMM (CAD)W/FREYA BILAT IMPRESSION: Stable bilateral screening mammogram. Yearly follow-up mammogram recommended. (A) ASSESSMENT CATEGORY: BIRADS Category 2: Benign. A letter regarding these results will be sent to the patient by the facility within 30 days. Approximately 10% of breast cancers are not detected by mammography. A normal mammogram should not delay biopsy of a clinically suspicious abnormality. [id number] Electronically Signed: Brown Dawkins MD at 8:56 EDT ,
== END | disposition home or self-care (01) ==
LOC: OPBI 08:19
PROVIDERS: PCP Internal Medicine; Visit Provider Nurse Practitioner
DX: Z12.31 Encounter for screening mammogram for malignant neoplasm of breast (principal); Z80.3 Family history of malignant neoplasm of breast
CPT/HCPCS: 77063; 77067

== ENCOUNTER → 2022-07-01 | Outpatient (CLI) | payer MEDICARE, OTHER, SELFPAY ==
[2022-07-01 15:16] LABS: Absolute Lymphocyte Count 1.37 X10^3/uL (0.83-4.51); Absolute Neutrophil Count 3.6 X10^3/uL (2.0-7.7); Basophil# 0.04 X10^3/uL; Basophil% 0.7 % (0-1); Eosinophils% 1.8 % (0-5); Hematocrit 42.8 % (37-47); Hemoglobin 13.8 g/dL (12.0-15.0); Lymphocyte # 1.37 X10^3/ul (0.83-4.51); Lymphocyte % 24.2 % (19-41); Mean Corp Hgb Conc 32.2 g/dL (32-36); Mean Corpuscular Hgb 31.9 pg (27.0-32.0); Mean Corpuscular Volume 98.8 fL (81-99); Mean Platelet Vol. 10.1 fl (6.2-12.0); Monocyte# 0.57 X10^3/uL; Monocyte% 10.1 % (0-10); NRBC Flagged by Analyzer 0 % (0-5); Neutrophil # 3.55 X10^3/uL (2.7-7.7); Neutrophil % 62.8 % (47-70); Platelet Count 164 K/mm3 (150-450); RBC Distribution Width CV 12.6 % (11.6-14.6); RBC Distribution Width SD 45.4 fl (35.1-43.9); Red Blood Count 4.33 M/mm3 (4.2-5.4); White Blood Count 5.7 K/mm3 (4.4-11.0)
[2022-07-01 15:33] LABS: ALB/GLOB Ratio 1.1 RATIO (0.9-2.4); AST(SGOT) 23 U/L (15-37); Alanine Aminotransfer ALT/SGPT 40 U/L (13-56); Albumin, Serum 3.9 g/dL (3.2-5.0); Alkaline Phosphatase 96 U/L (45-117); Anion Gap 8 (5-15); BUN 21 mg/dL (7-18); BUN/Creat Ratio 22.9 RATIO (10-20); Calcium,Total 10.4 mg/dL (8.5-10.1); Chloride 106 mmol/L (98-107); Cholesterol 172 mg/dL (200); Creatinine, Serum 0.92 mg/dL (0.55-1.02); EST Glomerular Filtration Rate 64 mL/min (>60); Est Glom Filt Rate - Afr Amer 77 mL/min (>60); Globulin 3.5 g/dL (2.2-4.2); Glucose 146 mg/dL (74-106); High Density Lipoprotein 60 mg/dL; Potassium 5.1 mmol/L (3.5-5.1); Protein, Total 7.4 g/dL (6.4-8.2); Sodium Level 143 mmol/L (136-145); T4 Free Direct 0.97 ng/dL (0.76-1.46); Thyroid Stim Hormone (TSH) 3.52 uIU/mL (0.358-3.74); Triglycerides 179 mg/dL; Very Low Density Lipoprotein 36 mg/dL (5-40)
== END | disposition home or self-care (01) ==
LOC: BIMLAB 13:42
PROVIDERS: PCP Internal Medicine; Referring Provider Internal Medicine; Visit Provider Internal Medicine
DX: I10 Essential (primary) hypertension (principal); E11.9 Type 2 diabetes mellitus without complications; R00.1 Bradycardia, unspecified
CPT/HCPCS: 36415; 80053; 80061; 84439; 84443; 85025

== ENCOUNTER → 2022-12-30 | Outpatient (CLI) | payer MEDICARE, OTHER, SELFPAY ==
[2022-12-30 15:14] LABS: AST(SGOT) 31 U/L (15-37); Alanine Aminotransfer ALT/SGPT 57 U/L (13-56); Albumin, Serum 3.6 g/dL (3.2-5.0); Alkaline Phosphatase 207 U/L (45-117); Anion Gap 5 (5-15); BUN 31 mg/dL (7-18); BUN/Creat Ratio 26.7 RATIO (10-20); Calcium,Total 9.6 mg/dL (8.5-10.1); Chloride 104 mmol/L (98-107); Creatinine, Serum 1.16 mg/dL (0.55-1.02); EST Glomerular Filtration Rate 48 mL/min (>60); Est Glom Filt Rate - Afr Amer 59 mL/min (>60); Globulin 3.7 g/dL (2.2-4.2); Glucose 376 mg/dL (74-106); Potassium 4.7 mmol/L (3.5-5.1); Protein, Total 7.3 g/dL (6.4-8.2); Sodium Level 135 mmol/L (136-145)
[2022-12-30 15:42] LABS: Vitamin D,25 Hydroxy 82.8 ng/mL
== END | disposition home or self-care (01) ==
LOC: BIMLAB 13:23
PROVIDERS: PCP Internal Medicine; Referring Provider Internal Medicine; Visit Provider Internal Medicine
DX: E11.9 Type 2 diabetes mellitus without complications (principal); E83.52 Hypercalcemia
CPT/HCPCS: 36415; 80053; 82306

== ENCOUNTER → 2023-01-29 | Outpatient (CLI) | payer MEDICARE, OTHER, SELFPAY ==
[2023-01-29 15:41] LABS: Anion Gap 8 (5-15); BUN 23 mg/dL (7-18); BUN/Creat Ratio 28.9 RATIO (10-20); Calcium,Total 9.7 mg/dL (8.5-10.1); Chloride 103 mmol/L (98-107); EST Glomerular Filtration Rate 75 mL/min (>60); Est Glom Filt Rate - Afr Amer 91 mL/min (>60); Glucose 149 mg/dL (74-106); Potassium 4.5 mmol/L (3.5-5.1); Sodium Level 138 mmol/L (136-145)
== END | disposition home or self-care (01) ==
LOC: BIMLAB 13:45
PROVIDERS: PCP Internal Medicine; Referring Provider Internal Medicine; Visit Provider Internal Medicine
DX: E11.9 Type 2 diabetes mellitus without complications (principal)
CPT/HCPCS: 36415; 80048

== ENCOUNTER → 2023-03-27 | Outpatient (CLI) | payer MEDICARE, OTHER, SELFPAY ==
--- NOTE | 2023-03-27 11:47 | BI_ITS ---
MAMMOGRAPHY - BILATERAL SCREENING REASON FOR EXAM: Female, 73 years old. Routine annual screening examination. PERTINENT HISTORY: Personal history of breast cancer. Prior left lumpectomy and radiation treatment. Mother with breast cancer. TECHNIQUE: Digital bilateral breast freya (3D mammographic acquisition) in the CC and MLO projections. 2-D mediolateral oblique (MLO) and craniocaudad (CC) views of both breasts were obtained. CAD: Full Field Digital Mammography with Computer Added Detection was performed. COMPARISON: Comparison is made with prior study March 26, 2022 and March 23, 2021. FINDINGS: Breast Composition: There are scattered areas of fibroglandular density. There are no dominant masses or suspicious calcifications. Once again, the patient is status post lumpectomy in the deep upper lateral aspect of the left breast with resultant postoperative deformity. Stable bilateral scattered calcifications. No other significant abnormalities are identified. There has been no significant change since the prior study. BI/SCRN MAMM (CAD)W/FREYA BILAT IMPRESSION: Stable bilateral screening mammogram. Yearly follow-up mammogram recommended. (A) ASSESSMENT CATEGORY: BIRADS Category 2: Benign. A letter regarding these results will be sent to the patient by the facility within 30 days. Approximately 10% of breast cancers are not detected by mammography. A normal mammogram should not delay biopsy of a clinically suspicious abnormality. [id number] Electronically Signed: Brown Dawkins MD at 13:52 EDT ,
== END | disposition home or self-care (01) ==
LOC: OPBI 11:45
PROVIDERS: PCP Internal Medicine; Referring Provider Nurse Practitioner; Visit Provider Nurse Practitioner
DX: Z12.31 Encounter for screening mammogram for malignant neoplasm of breast (principal); C50.412 Malignant neoplasm of upper-outer quadrant of left female breast; Z17.0 Estrogen receptor positive status [ER+]
CPT/HCPCS: 77063; 77067

== ENCOUNTER → 2023-04-04 | Outpatient (CLI) | payer MEDICARE, OTHER, SELFPAY ==
[2023-04-04 16:45] LABS: ALB/GLOB Ratio 1.3 RATIO (0.9-2.4); AST(SGOT) 14 U/L (15-37); Alanine Aminotransfer ALT/SGPT 25 U/L (13-56); Albumin, Serum 3.8 g/dL (3.2-5.0); Alkaline Phosphatase 107 U/L (45-117); Anion Gap 7 (5-15); BUN 28 mg/dL (7-18); BUN/Creat Ratio 33.7 RATIO (10-20); Calcium,Total 9.7 mg/dL (8.5-10.1); Chloride 103 mmol/L (98-107); Creatinine, Serum 0.83 mg/dL (0.55-1.02); EST Glomerular Filtration Rate 71 mL/min (>60); Est Glom Filt Rate - Afr Amer 86 mL/min (>60); Glucose 144 mg/dL (74-106); Potassium 4.9 mmol/L (3.5-5.1); Protein, Total 6.8 g/dL (6.4-8.2); Sodium Level 137 mmol/L (136-145)
== END | disposition home or self-care (01) ==
LOC: BIMLAB 13:24
PROVIDERS: PCP Internal Medicine; Referring Provider Internal Medicine; Visit Provider Internal Medicine
DX: E11.9 Type 2 diabetes mellitus without complications (principal)
CPT/HCPCS: 36415; 80053

== ENCOUNTER → 2023-07-09 | Outpatient (CLI) | payer MEDICARE, OTHER, SELFPAY ==
[2023-07-09 16:49] LABS: Absolute Lymphocyte Count 1.52 X10^3/uL (0.83-4.51); Absolute Neutrophil Count 4.4 X10^3/uL (2.0-7.7); Basophil# 0.04 X10^3/uL; Basophil% 0.6 % (0-1); Eosinophil# 0.12 X10^3/uL; Eosinophils% 1.8 % (0-5); Hematocrit 41.2 % (37-47); Hemoglobin 13.4 g/dL (12.0-15.0); Lymphocyte # 1.52 X10^3/ul (0.83-4.51); Lymphocyte % 22.7 % (19-41); Mean Corp Hgb Conc 32.5 g/dL (32-36); Mean Corpuscular Hgb 31.8 pg (27.0-32.0); Mean Corpuscular Volume 97.6 fL (81-99); Mean Platelet Vol. 10.5 fl (6.2-12.0); Monocyte# 0.63 X10^3/uL; Monocyte% 9.4 % (0-10); NRBC Flagged by Analyzer 0 % (0-5); Neutrophil # 4.36 X10^3/uL (2.7-7.7); Neutrophil % 65.1 % (47-70); Platelet Count 157 K/mm3 (150-450); RBC Distribution Width CV 12.8 % (11.6-14.6); RBC Distribution Width SD 45.4 fl (35.1-43.9); Red Blood Count 4.22 M/mm3 (4.2-5.4); White Blood Count 6.7 K/mm3 (4.4-11.0)
--- OUTSIDE RECORDS SUMMARY | 2023-07-09 17:02 | XMS RPT_ITS | CCD ---
Author Name Unknown Address [address] [place] [address] Organization [facility] Care Team Providers Care Railroader Name Role Phone Glenna Kothari Unavailable Unavailable Glenna Kothari Unavailable Unavailable Franc Eugene Unavailable Unavailable Cassie Nuno MD Unavailable [phone] Jalen GROSS MD, Luna Unavailable [phone] Aydee RN, Cathy Unavailable Unavailable Cassie Nuno MD Primary Care Provider [phone] KAYT CORONADO PAC Attending Unavailable KATY CORONADO PAC Primary Care Unavailable KATY CORONADO PAC Admitting Unavailable FARRAH, DR BIANCA Singh Admitting Unavaila ble FARRAH, DR BIANCA Singh Attending Unavaila ble FARRAH, DR BIANCA Singh Primary Care Unavaila manav Rao MD, MD, Daesung Unavailable Aydee RN, Cathy Unavailable Unavailable Cassie Nuno MD Primary Care Provider [phone] AMARILIS FRANCISCO Attending Unavailable MARIA DOLORES ZAVALA Referring Unavailable DAVIS, EFEWONGBE B Primary Care Unavailable AMARILIS FRANCISCO Attending Unavailable MARIA DOLORES ZAVALA Referring Unavailable DAVIS, EFEWONGBE B Primary Care Unavailable AMARILIS FRANCISCO Referring Unavailable DAVIS EFEWONGBE B Primary Care Unavailable Allergies Allergy Classification Reported Allergen(s) Allergy Type Date of Onset Reaction(s) Facility (4 sources) Acetaminophen / oxyCODONE; Translations: [OXYCODONE-ACETAMI NOPHEN] Drug Allergy 05-18-2020 GI Upset [facility] (1 source) Acetaminophen / oxyCODONE Drug Allergy [facility] Repository Medications Completed/Discontinued Medications Medication Drug Class(es) Dates Sig (Normalized) Sig (Original) anastrozole 1 mg oral tablet (4 sources) Aromatase Inhibitor Start: 04-24-2021 End: 04-25-2022 take 1 tablet by mouth once daily anastrozole (ARIMIDEX) 1 mg tablet Take 1 tablet by mouth once daily. 90 tablet 3 04/25/2022 Active Problems Active Problems Problem Classification Problem Date Documented Da te Episodic/Chronic Allergic reactions (1 source) Allergy status to narcotic agent status; Translations: [Allergy status to narcotic agent] Onset: 10-25-2021 Episodic Cancer of breast (6 sources) Malignant neoplasm of upper-outer quadrant of female breast; Translations: [Malignant neoplasm of upper-outer quadrant of left female breast] Onset: 06-06-2020 Chronic Diabetes mellitus without complication (4 sources) Type 2 diabetes mellitus; Translations: [Type 2 diabetes mellitus without complications] Onset: 02-10-2017 02-10-2017 Chronic E Codes: Fall (1 source) Fall on same level from slipping, tripping and stumbling without subsequent striking against object, initial encounter; Translations: [Fall on same level from slipping, tripping and stumbling without subsequent striking against object, initial encounter] Onset: 10-25-2021 Episodic E Codes: Unspecified (1 source) Activity, gardening and landscaping; Translations: [Activity, gardening and landscaping] Onset: 10-25-2021 Episodic Essential hypertension (1 source) Essential (primary) hypertension; Translations: [Essential (primary) hypertension] Onset: 10-25-2021 Chronic Fracture of upper limb (4 sources) Nondisplaced fracture of left radial styloid process, subsequent encounter for closed fracture with routine healing; Translations: [Fracture of unspecified carpal bone, left wrist, initial encounter for closed fracture] Onset: 10-25-2021 Episodic Osteoarthritis (4 sources) Degenerative joint disease involving multiple joints; Translations: [Polyosteoarthritis , unspecified] Onset: 02-05-2017 02-05-2017 Chronic Other acquired deformities (4 sources) Spondylolisthesis; Translations: [Spondylolisthesis, lumbosacral region] Onset: 02-05-2017 02-05-2017 Chronic Other aftercare (1 source) Long-term current use of aromatase inhibitor; Translations: [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] Episodic Other non-traumatic joint disorders (2 sources) Pain in left wrist; Translations: [Pain in left wrist] Onset: 10-25-2021 Episodic Other nutritional; endocrine; and metabolic disorders (4 sources) Obesity; Translations: [Obesity, unspecified] Onset: 02-10-2017 02-10-2017 Chronic Other screening for suspected conditions (not mental disorders or infectious disease) (5 sources) Patient encounter status; Translations: [Encounter for screening mammogram for malignant neoplasm of breast] Onset: 09-08-2008 Episodic Residual codes; unclassified (1 source) Acquired absence of other specified parts of digestive tract; Translations: [Acquired absence of other specified parts of digestive tract] Onset: 10-25-2021 Episodic Residual codes; unclassified (1 source) Acquired absence of unspecified breast and nipple; Translations: [Acquired absence of unspecified breast and nipple] Onset: 10-25-2021 Episodic Residual codes; unclassified (1 source) Menopause present; Translations: [Asymptomatic menopausal state] Episodic Superficial injury; contusion (1 source) Contusion of other part of head, initial encounter; Translations: [Contusion of other part of head, initial encounter] Onset: 10-25-2021 Episodic Unclassified (2 sources) Influenza vaccination ; Translations: [Encounter for immunization] Onset: 05-13-2017 05-13-2017 Past or Other Problems Problem Classification Problem Date Documented Da te Episodic/Chronic Other aftercare (1 source) 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; Translations: [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] Onset: 10-01-2022 Episodic Residual codes; unclassified (1 source) Asymptomatic menopausal state; Translations: [Menopause] Onset: 10-01-2022 Episodic Results Test Name Value Interpretation Reference Range Facil ity Vital Signs Date Time Vital Sign Value Performing Clinician Facility 04-25-2022 09:58-0500 Body temperature 97.3 [degF] Amarilis Francisco APRN.CNP Work Phone: [facility] 04-25-2022 09:58-0500 Body weight 100.02 kg Amarilis Francisco APRN.CNP Work Phone: [facility] 04-25-2022 09:58-0500 Diastolic blood pressure 75 mm[Hg] [place] Francisco HOSPITAL PHARMACY TECHNICIAN.[employer] Work Phone: [facility] 04-25-2022 09:58-0500 Heart rate 57 /min [place] Francisco HOSPITAL PHARMACY TECHNICIAN.[employer] Work Phone: [facility] 04-25-2022 09:58-0500 SaO2% (BldA) [Mass fraction] 100 % [place] Francisco HOSPITAL PHARMACY TECHNICIAN.[employer] Work Phone: [facility] 04-25-2022 09:58-0500 Systolic blood pressure 159 mm[Hg] [place] Francisco HOSPITAL PHARMACY TECHNICIAN.[employer] Work Phone: [facility] 10-23-2021 10:00-0400 Body temperature 97.59 [degF] Amarilis Francisco HOSPITAL PHARMACY TECHNICIAN.[employer] Work Phone: [facility] 10-23-2021 10:00-0400 Body weight 98.43 kg [place] Francisco HOSPITAL PHARMACY TECHNICIAN.[employer] Work Phone: [facility] 10-23-2021 10:00-0400 Diastolic blood pressure 69 mm[Hg] [place] Francisco HOSPITAL PHARMACY TECHNICIAN.[employer] Work Phone: [facility] 10-23-2021 10:00-0400 Heart rate 61 /min [place] Francisco HOSPITAL PHARMACY TECHNICIAN.[employer] Work Phone: [facility] 10-23-2021 10:00-0400 SaO2% (BldA) [Mass fraction] 97 % Amarilis Francisco HOSPITAL PHARMACY TECHNICIAN.[employer] Work Phone: [facility] 10-23-2021 10:00-0400 Systolic blood pressure 149 mm[Hg] Amarilis Francisco HOSPITAL PHARMACY TECHNICIAN.[employer] Work Phone: [facility] 05-13-2017 10:26-0500 BMI (Body Mass Index) 36.76 kg/m2 Glenna Taye [facility] Work Phone: 05-13-2017 10:26-0500 Body Temperature 97.1 [degF] [facility] Taye [facility] Work Phone: 05-13-2017 10:26-0500 BP Diastolic 85 mm[Hg] [facility]ik [facility] Work Phone: 05-13-2017 10:26-0500 BP Systolic 143 mm[Hg] Glenna Taye [facility] Work Phone: 05-13-2017 [id number] Height 157.48 cm Glennaerik Kothari [facility] Work Phone: 05-13-2017 10:26-0500 Pulse (Heart Rate) 71 /min Gl[facility] Work Phone: 05-13-2017 10:26-0500 Respiratory Rate 16 /min [facility] Work Phone: 05-13-2017 10:26-0500 Weight 91.17 kg [facility]ik [facility] Work Phone: 02-10-2017 10:28-0400 BMI (Body Mass Index) 39.61 kg/m2 Cassie Nuno MD [facility] Work Phone: 02-10-2017 10:-0400 Body Temperature 98.6 [degF] Cassie Nuno MD [facility] Work Phone: 02-10-2017 10:28-0400 BP Diastolic 83 mm[Hg] Cassie Nuno MD [facility] Work Phone: 02-10-2017 10:28-0400 BP Systolic 137 mm[Hg] Cassie Nuno MD [facility] Work Phone: 02-10-2017 10:28-0400 Height 157.48 cm Cassie Nuno MD [facility] Work Phone: 02-10-2017 10:28-0400 Pulse (Heart Rate) 69 /min Cassie Nuno MD [facility] Work Phone: 02-10-2017 10:28-0400 Respiratory Rate 18 /min Cassie Nuno MD [facility] Work Phone: 02-10-2017 10: Weight 98.25 kg Cassie Nuno MD [facility] Work Phone: Encounters Encounter Date Encounter Type Care Provider Facility Start: 04-25-2023 End: 04-25-2023 [facility] Start: 10-24-2022 End: 10-24-2022 [facility] Start: 10-01-2022 End: 10-01-2022 [facility] Start: 04-25-2022 End: 04-25-2022 ambulatory [facility] HOSPITAL PHARMACY TECHNICIAN.[employer] Work Phone: Hematology/Oncology Procedures Date Procedure Procedure Detail Performing Clinician Start: 06-27-2020 Adult depression scr eening assessment [facility] HOSPITAL PHARMACY TECHNICIAN.[employer] Work Phone: Start: 04-29-2017 End: 05-01-2017 Hemoglobin A1c/Hemoglobin.total in Blood Cassie Nuno MD Work Phone: Start: 02-10-2017 End: 04-29-2017 Thyrotropin [Units/volume] in Serum or Plasma Cassie Nuno MD Work Phone: Start: 02-10-2017 End: 04-29-2017 Thyroxine (T4) free [Mass/volume] in Serum or Plasma Cassie Nuno MD Work Phone: Start: 10-05-2008 Colonoscopy [facility] HOSPITAL PHARMACY TECHNICIAN.[employer] Work Phone: Plan of Treatment Date Care Activity Detail Author Start: 02-14-2022 Influenza vaccination [facility] Start: 06-27-2021 Adult depression screening assessment DEPRESSION SCREENING [facility] Start: 06-16-2021 ADVANCE DIRECTIVE DISCUSSION ADVANCE DIRECTIVE DISCUSSION [facility] Start: 06-16-2021 DEPRESSION ASSESSMENT DEPRESSION ASSESSMENT [facility] Start: 07-31-2017 End: 05-01-2017 Hemoglobin A1c/Hemoglobin.total mass fraction (Bld) *HgA1C [facility] Work Phone: Start: 05-13-2017 End: 05-13-2017 Follow Up Appt 3 months Follow Up Appt 3 months [facility] Work Phone: Start: 05-13-2017 End: 05-13-2017 Appointment Appointment [facility] Work Phone: Start: 04-29-2017 End: 05-01-2017 Hemoglobin A1c/Hemoglobin.total mass fraction (Bld) *HgA1C [facility] Work Phone: Start: 02-10-2017 End: 02-10-2017 Follow Up Appt 3 months Follow Up Appt 3 months [facility] Work Phone: Start: 02-10-2017 End: 04-29-2017 Thyroid stimulating hormone (TSH) *TSH [facility] Work Phone: Start: 02-10-2017 End: 04-29-2017 Thyroxine (T4) free *T4 free [facility] Work Phone: Start: 02-02-2013 PNEUMOCOCCAL: 65+ (1 - PCV) PNEUMOCOCCAL: 65+ (1 - PCV) [facility] Start: 02-02-2013 PNEUMOVAX AGE 65 AND OVER WITH 5YR LOOKBACK (#1) PNEUMOVAX AGE 65 AND OVER WITH 5YR LOOKBACK (#1) [facility] Start: 10-05-2009 Colonoscopy COLONOSCOPY [facility] Start: 10-05-2009 COLORECTAL CANCER SCREENING COLORECTAL CANCER SCREENING [facility] Start: 02-02-1998 SHINGRIX VACCINE (1 of 2) SHINGRIX VACCINE (1 of 2) [facility] Start: 02-02-1993 COLOGUARD (FIT-DNA) COLOGUARD (FIT-DNA) [facility] Start: 02-02-[address] COLONOGRAPHY [facility] Start: 02-02-1993 DIABETES SCREEN DIABETES SCREEN [facility] Start: 02-02-1993 FECAL OCCULT BLOOD FECAL OCCULT BLOOD [facility] Start: 02-02-1993 LIPID SCREEN LIPID SCREEN [facility] Start: 02-02-1993 SIGMOIDOSCOPY SIGMOIDOSCOPY [facility] Start: 1988 Mammography MAMMOGRAM [facility] Start: 08-20-1967 Urine microalbumin profile DTAP,TDAP,TD (1 - Tdap) [facility] Start: 02-02-1966 HEPATITIS C SCREENING HEPATITIS C SCREENING [facility] Start: 02-02-1953 COVID-19 VACCINE (#1) COVID-19 VACCINE (#1) [facility] Start: 1948 COVID-19 VACCINE (#1) COVID-19 VACCINE (#1) [facility] End: 05-25-2023 Dxa bone density study 1/> sites axial skel DXA-AXIAL SKELETON Radiology Routine 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 2013 Unknown [id number] 2013 Unknown MMO MMO MEDICARE SUPPLEMENT [id number] 2013-Present [phone] [address] [place] [address] Indemnity [id number] 2013 Medicare MEDICARE MEDICAR E A AND B [id number] 2013-Present [phone] [address] [address] [place] [address] Medicare [id number] 2013 Medicare [id number] 2013 Medicare MEDICARE MEDICAR E A AND B [id number] 2013-Present [phone] [place] [address] Medicare [id number] 1948 Unknown [id number] 1950 Unknown [id number] Social History Date Type Detail Facility Start: 05-18-2020 Tobacco smoking stat [facility] Never smoked tobacco [facility] Start: 10-23-2021 End: 04-25-2022 Alcohol intake Current non-drinker of alcohol (finding) [facility] Start: 1950 Sex Assigned At Female [facility] Start: 10-13-2021 End: 10-23-2021 Exposure to SARS-CoV-2 (event) Not sure [facility] Start: 05-18-2020 Tobacco use and exposure Smoke less tobacco non-user [facility] Progress note 04-25-2023 Note Date & Type Note Facility 04-25-2023 Note HNO ID: [id number] Author: Amarilis Francisco APRN.[employer] Service: ? Author Type: Nurse Practitioner Type: Progress Notes Filed: 04/25/2023 11:55 AM Note Text: Chief Complaint Patient presents with: Established Patient HPI: Catarina Sagastume is a 73 year old female who presents here today for follow up breast cancer. Per Dr. Zavala's previous note: H/o hypertension and borderline diabetes, diet controlled. Patient was found to have an asymmetric density in the upper outer aspect of the left breast on a screening mammogram performed on 03/22/2020. An ultrasound performed the following day revealed a 7 x 8 x 9 mm hypoechoic lesion at the 3 o'clock position 5 cm from the nipple. She was referred to Dr. Tabor. Underwent ultrasound-guided mammotome biopsy on 04/19/2020. Pathology: MICROSCOPIC DIAGNOSIS Left breast, ultrasound-guided core biopsy: Invasive ductal carcinoma with the following characteristics: Maximal length - 7 millimeters Nuclear grade - 2/3 ER (clone 6F11) >95%, strong intensity WY (clone 16/1E2) >95%, strong intensity Her-2Neu (clone CB11) 0 Underwent ultrasound-guided wire localization left breast lumpectomy along with left sentinel lymph node biopsy on 05/03/2020. Pathology: FROZEN SECTION DIAGNOSIS A. Left axillary sentinel lymph node, biopsy: One out of one lymph node negative for carcinoma. MICROSCOPIC DIAGNOSIS A. Left axillary sentinel lymph node, biopsy: One out of one lymph node negative for carcinoma. B. Left breast, lumpectomy: Invasive ductal carcinoma. One out of one lymph nodes positive for micrometastatic (0.7mm) carcinoma. See cancer check list below. COMMENT INVASIVE BREAST CANCER SUMMARY Procedure: Excision with wire guidance Specimen: Type: Partial breast Size: 10 x 7 x 3.5 cm Laterality: Left Invasive Tumor: Size: 1.5 x 1 x 1 cm Focality: Single focus of invasive carcinoma. Histologic type: Invasive ductal carcinoma. Histologic grade (Brennen grade): Glandular/tubular differentiation score: 3 Nuclear pleomorphism score: 2 Mitotic count score: 1 Overall grade: 2 (score of 6) Lymphvascular invasion: Not identified Ductal Carcinoma In Situ: Estimated size (extent): Number of blocks: 1 of 10 blocks Architectural pattern: solid Nuclear grade: 2/3 Necrosis: Not present Lobular Carcinoma In Situ: Not present Tumor extension: Skin: Free of carcinoma. cicatrix Nipple: Not applicable Skeletal muscle: Not present Invasive Carcinoma Margin: Distance from closest margin: 12 mm from anterior margin In Situ Carcinoma Margin: Distance from closest margin: 12 mm from anterior margin Lymph Nodes: Number of sentinel lymph nodes examined: 1 Total number of lymph nodes examined: 2 Number of lymph node(s) positive for metastatic carcinoma: One out of one Intraparenchymal lymph node with micrometastatic (0.7mm) carcinoma. No isolated tumor cells seen and no extranodal extension of tumor is identified. Also see specimen A. Microcalcifications: Focally present in non-neoplastic tissue. Treatment Effect: Unknown Additional Pathologic Findings: Biopsy cavity with associated reactive change and mild fibrocystic change. Ancillary Studies: Previously performed on same tumor ([id number]) ER: positive (>95%, strong intensity) WY: positive (>95%, strong intensity) [id number]: negative (0) Clinical History: Pathologic Stage: T1c N1(mi) Mx Oncotype Dx results in detail. RS 15; 14% risk. No expected benefit from chemotherapy. RADIATION:06/22/20 - 07/13/20 Left breast Current therapy:Arimidex Began 2020. No new concerns today. Pt. here today with family member. Appetite: Good. Pt. lost 20# since last OV-Pt. changed her diet and started walking-she did not want to have to take metformin. Energy level: It's good. Denies fevers or recent illness Resp:denies cough or sob Cardiac:denies chest pain/palpitations GI:denies abd pain, n/v, moving bowels regularly :denies dysuria/hematuria Extrem:denies pain Endo:hot flashes A couple times per month. Neuro:denies symptoms of neuropathy Skin:denies rashes/lesions Heme:denies bleeding The ROS is otherwise negative. Past medical history, appointments, medications, allergies reviewed. No changes. EXAM: BP 157/76 Pulse (!) 53 Temp 36.4 ?C (97.5 ?F) (Temporal) Ht 152.4 cm (5') Wt 92.5 kg (204 lb) SpO2 97% BMI 39.84 kg/m? APPEARANCE Well appearing, alert, in no acute distress, well-hydrated, well nourished. HEART RRR with normal S1 and S2, no murmurs LUNG clear to auscultation BREAST FEMALE no mass/nodule b/l LYMPH NODES No cervical lymphadenopathy, No supraclavicular lymphadenopathy, and No axillary lymphadenopathy. ABDOMEN bowel sounds normoactive, soft, non-tender EXTREMITIES No edema NEURO Awake, alert and oriented x 3, using cane and No involuntary motions. SKIN Skin color, texture, turgor normal (more content not included)... [facility] Progress note 10-24-2022 Note Date & Type Note Facility 10-24-2022 Note HNO ID: [id number] Author: Amarilis Francisco APRN.[employer] Service: ? Author Type: Nurse Practitioner Type: Progress Notes Filed: 10/24/2022 1:17 PM Note Text: Chief Complaint Patient presents with: Established Patient HPI: Catarina Sagastume is a 72 year old female who presents here today for follow up breast cancer. Per Dr. Zavala's previous note: H/o hypertension and borderline diabetes, diet controlled. Patient was found to have an asymmetric density in the upper outer aspect of the left breast on a screening mammogram performed on 03/22/2020. An ultrasound performed the following day revealed a 7 x 8 x 9 mm hypoechoic lesion at the 3 o'clock position 5 cm from the nipple. She was referred to Dr. Tabor. Underwent ultrasound-guided mammotome biopsy on 04/19/2020. Pathology: MICROSCOPIC DIAGNOSIS Left breast, ultrasound-guided core biopsy: Invasive ductal carcinoma with the following characteristics: Maximal length - 7 millimeters Nuclear grade - 2/3 ER (clone 6F11) >95%, strong intensity WY (clone 16/1E2) >95%, strong intensity Her-2Neu (clone CB11) 0 Underwent ultrasound-guided wire localization left breast lumpectomy along with left sentinel lymph node biopsy on 05/03/2020. Pathology: FROZEN SECTION DIAGNOSIS A. Left axillary sentinel lymph node, biopsy: One out of one lymph node negative for carcinoma. MICROSCOPIC DIAGNOSIS A. Left axillary sentinel lymph node, biopsy: One out of one lymph node negative for carcinoma. B. Left breast, lumpectomy: Invasive ductal carcinoma. One out of one lymph nodes positive for micrometastatic (0.7mm) carcinoma. See cancer check list below. COMMENT INVASIVE BREAST CANCER SUMMARY Procedure: Excision with wire guidance Specimen: Type: Partial breast Size: 10 x 7 x 3.5 cm Laterality: Left Invasive Tumor: Size: 1.5 x 1 x 1 cm Focality: Single focus of invasive carcinoma. Histologic type: Invasive ductal carcinoma. Histologic grade ([place] grade): Glandular/tubular differentiation score: 3 Nuclear pleomorphism score: 2 Mitotic count score: 1 Overall grade: 2 (score of 6) Lymphvascular invasion: Not identified Ductal Carcinoma In Situ: Estimated size (extent): Number of blocks: 1 of 10 blocks Architectural pattern: solid Nuclear grade: 2/3 Necrosis: Not present Lobular Carcinoma In Situ: Not present Tumor extension: Skin: Free of carcinoma. cicatrix Nipple: Not applicable Skeletal muscle: Not present Invasive Carcinoma Margin: Distance from closest margin: 12 mm from anterior margin In Situ Carcinoma Margin: Distance from closest margin: 12 mm from anterior margin Lymph Nodes: Number of sentinel lymph nodes examined: 1 Total number of lymph nodes examined: 2 Number of lymph node(s) positive for metastatic carcinoma: One out of one Intraparenchymal lymph node with micrometastatic (0.7mm) carcinoma. No isolated tumor cells seen and no extranodal extension of tumor is identified. Also see specimen A. Microcalcifications: Focally present in non-neoplastic tissue. Treatment Effect: Unknown Additional Pathologic Findings: Biopsy cavity with associated reactive change and mild fibrocystic change. Ancillary Studies: Previously performed on same tumor ([id number]) ER: positive (>95%, strong intensity) WY: positive (>95%, strong intensity) Qeg0itt: negative (0) Clinical History: Pathologic Stage: T1c N1(mi) Mx Oncotype Dx results in detail. RS 15; 14% risk. No expected benefit from chemotherapy. RADIATION:06/22/20 - 07/13/20 Left breast Current therapy:Arimidex Began 2020. No new concerns today. Pt. here today with family member. Appetite: Too good. Energy level: It's good. Denies fevers or recent illness Resp:denies cough or sob Cardiac:denies chest pain/palpitations GI:denies abd pain, n/v, moving bowels regularly :denies dysuria/hematuria Extrem:denies pain Endo:denies hot flashes Neuro:denies symptoms of neuropathy Skin:denies rashes/lesions Heme:denies bleeding The ROS is otherwise negative. Past medical history, appointments, medications, allergies reviewed. No changes. EXAM: BP 155/67 Pulse (!) 59 Temp 36.2 ?C (97.2 ?F) Ht 153 cm (5' 0.24 ) Wt 102.3 kg (225 lb 8 oz) SpO2 94% BMI 43.70 kg/m? APPEARANCE Well appearing, alert, in no acute distress, well-hydrated, well nourished. HEART RRR with normal S1 and S2, no murmurs LUNG clear to auscultation BREAST FEMALE no mass/nodule b/l LYMPH NODES No cervical lymphadenopathy, No supraclavicular lymphadenopathy, and No axillary lymphadenopathy. ABDOMEN bowel sounds normoactive, soft, non-tender EXTREMITIES No edema NEURO Awake, alert and oriented x 3, Normal gait, and No involuntary motions. SKIN Skin color, texture, turgor normal, no suspicious rashes or lesions ASSESSMENT/PLAN: 1. Malignant neoplasm of upper-outer quadrant of left breast in female, estrog (more content not included)... [facility] Progress note 10-01-2022 Note Date & Type Note Facility 10-01-2022 Note HNO ID: [id number] Author: RT Herminio(R) Service: ? Author Type: Technologist Type: Progress Notes Filed: 10/01/2022 8:41 AM Note Text: Radiology Service Progress Note PATIENT NAME: Catarina Sagastume DATE OF SERVICE: October 01, 2022 TIME: 8:41 AM PATIENT IDENTITY VERIFICATION COMPLETED USING TWO (2) IDENTIFIERS: Name and Date of confirmed by patient verbally. FALL SCREENING: Has the patient had 2 falls in the last year or 1 fall with injury or currently using an Ambulatory Assistive Device (Walker, Cane, Wheelchair, Crutches, etc.)? Yes, Patient High Risk for Falls What interventions were put in place to prevent falls during this visit? Increased Observations by Caregivers PATIENT GENDER DATA: Female. status: : No status: NO. PATIENT RELEVANT IMPLANT DATA REVIEWED: Not Applicable RADIOLOGY DEPARTMENT: Bone Density PERIPHERAL IV DATA: Not applicable SIGNED BY: RT Herminio(R) October 01, 2022 8:41 AM [facility] History of Present illness Narrative 04-25-2022 Amarilis Francisco APRN.[employer] - 04/25/2022 9:58 AM EST Note Date & Type Note Facility 04-25-2022 History of Presen t illness Narrative Chief Complaint Patient presents with: Established Patient HPI: Catarina Sagastume is a 72 year old female who presents here today for follow up breast cancer. Per Dr. Zavala's previous note: H/o hypertension and borderline diabetes, diet controlled. Patient was found to have an asymmetric density in the upper outer aspect of the left breast on a screening mammogram performed on 03/22/2020. An ultrasound performed the following day revealed a 7 x 8 x 9 mm hypoechoic lesion at the 3 o'clock position 5 cm from the nipple. She was referred to Dr. Tabor. Underwent ultrasound-guided mammotome biopsy on 04/19/2020. Pathology: MICROSCOPIC DIAGNOSIS Left breast, ultrasound-guided core biopsy: Invasive ductal carcinoma with the following characteristics: Maximal length - 7 millimeters Nuclear grade - 2/3 ER (clone 6F11) >95%, strong intensity WY (clone 16/1E2) >95%, strong intensity Her-2Neu (clone CB11) 0 Underwent ultrasound-guided wire localization left breast lumpectomy along with left sentinel lymph node biopsy on 05/03/2020. Pathology: FROZEN SECTION DIAGNOSIS A. Left axillary sentinel lymph node, biopsy: One out of one lymph node negative for carcinoma. MICROSCOPIC DIAGNOSIS A. Left axillary sentinel lymph node, biopsy: One out of one lymph node negative for carcinoma. B. Left breast, lumpectomy: Invasive ductal carcinoma. One out of one lymph nodes positive for micrometastatic (0.7mm) carcinoma. See cancer check list below. COMMENT INVASIVE BREAST CANCER SUMMARY Procedure: Excision with wire guidance Specimen: Type: Partial breast Size: 10 x 7 x 3.5 cm Laterality: Left Invasive Tumor: Size: 1.5 x 1 x 1 cm Focality: Single focus of invasive carcinoma. Histologic type: Invasive ductal carcinoma. Histologic grade (Brennen grade): Glandular/tubular differentiation score: 3 Nuclear pleomorphism score: 2 Mitotic count score: 1 Overall grade: 2 (score of 6) Lymphvascular invasion: Not identified Ductal Carcinoma In Situ: Estimated size (extent): Number of blocks: 1 of 10 blocks Architectural pattern: solid Nuclear grade: 2/3 Necrosis: Not present Lobular Carcinoma In Situ: Not present Tumor extension: Skin: Free of carcinoma. cicatrix Nipple: Not applicable Skeletal muscle: Not present Invasive Carcinoma Margin: Distance from closest margin: 12 mm from anterior margin In Situ Carcinoma Margin: Distance from closest margin: 12 mm from anterior margin Lymph Nodes: Number of sentinel lymph nodes examined: 1 Total number of lymph nodes examined: 2 Number of lymph node(s) positive for metastatic carcinoma: One out of one Intraparenchymal lymph node with micrometastatic (0.7mm) carcinoma. No isolated tumor cells seen and no extranodal extension of tumor is identified. Also see specimen A. Microcalcifications: Focally present in non-neoplastic tissue. Treatment Effect: Unknown Additional Pathologic Findings: Biopsy cavity with associated reactive change and mild fibrocystic change. Ancillary Studies: Previously performed on same tumor ([id number]) ER: positive (>95%, strong intensity) WY: positive (>95%, strong intensity) Rhk0rth: negative (0) Clinical History: Pathologic Stage: T1c N1(mi) Mx Oncotype Dx results in detail. RS 15; 14% risk. No expected benefit from chemotherapy. RADIATION:06/22/20 - 07/13/20 Left breast Current therapy:Arimidex Began 2020. No new concerns today. Pt. here today with family member. Pt. had emergent appendectomy November 2021-Dr. Austin done at [facility]. Appetite: Too good. Energy level: It's alright. Denies fevers or recent illness Resp:denies cough or sob Cardiac:denies chest pain/palpitations GI:denies abd pain, n/v, moving bowels regularly :denies dysuria/hematuria Extrem:denies pain Endo:denies hot flashes I'm just warm all of the time. Neuro:denies symptoms of neuropathy Skin:denies rashes/lesions Heme:denies bleeding The ROS is otherwise negative. Past medical history, appointments, medications, allergies reviewed. No changes. EXAM: BP 159/75 Pulse (!) 57 Temp 36.3 C (97.3 F) Wt 100 kg (220 lb 8 oz) SpO2 100% BMI 43.06 kg/m APPEARANCE Well appearing, alert, in no acute distress, well-hydrated, well nourished. HEART RRR with normal S1 and S2, no murmurs LUNG clear to auscultation BREAST FEMALE no mass/nodule b/l, scar to L outer/radiation changes LYMPH NODES No cervical lymphadenopathy, No supraclavicular lymphadenopathy, and No axillary lymphadenopathy. ABDOMEN bowel sounds normoactive, soft, non-tender, non-distended EXTREMITIES No edema NEURO Awake, alert and oriented x 3, Normal gait, and No involuntary motions. SKIN Skin color, texture, turgor normal, no suspicious rashes or lesions ASSESSMENT/PLAN: 1. Malignant neoplasm of upper-outer quadrant of left breast in female, estrogen receptor positive (HCC) - ICD9: 174.4, V86.0, ICD10: C50.412, Z17.0 (primary diagnosis) S/p ultrasound-guided wire localization left breast lumpectomy along with left sentinel lymph node biopsy on 05/03/2020. T1c N1(mi) M0 ER/WY positive, HER-2 negative stage IA infiltrating ductal carcinoma of the left breast. Oncotype Dx-15. S/p L breast radiation 06/22/20 - 07/13/20. - No concerning findings on exam. - Tolerating arimidex well. - Reviewed mammogram with pt. - Continue arimidex. Rx done. - Continue calcium+D. - Bone density due September 2022. - Mammogram due 2022. Pt. has this done at [facility]. - Follow up 6 months. - Pt. aware to call office with any questions/concerns. The patient indicates understanding of these issues and agrees with the plan. All documentation from previous visit of 10/23/21-Dr. Zavala/myself was copied and pasted, documentation has been reviewed and edited as necessary for today's visit. Amarilis Francisco APRN.[employer] documented in this encounter [facility] Note 03-07-2022 Telephone Encounter - Jana Goodrich LPN - 03/07/2022 2:48 PM EDTTelephone Encounter - Florinda Washington - 03/07/2022 1:39 PM EDT Note Date & Type Note Facility 03-07-2022 Miscellaneous Notes Formattin g of this note might be different from the original. Faxed order to [facility] central reg. notified daughter. Jana Goodrich LPN Pts daughter is checking on the order for pts mammogram. She has done previous ones at [facility] and would like to have the order sent there. documented in this encounter [facility] History of Present illness Narrative 10-23-2021 Amarilis Francisco APRN.[employer]OVER [employer] - 10/23/2021 10:14 AM EDT Note Date & Type Note Facility 10-23-2021 History of Presen t illness Narrative Chief Complaint Patient presents with: Established Patient HPI: Catarina Sagastume is a 71 year old female who presents here today for follow up breast cancer. Per Dr. Zavala's previous note: H/o hypertension and borderline diabetes, diet controlled. Patient was found to have an asymmetric density in the upper outer aspect of the left breast on a screening mammogram performed on 03/22/2020. An ultrasound performed the following day revealed a 7 x 8 x 9 mm hypoechoic lesion at the 3 o'clock position 5 cm from the nipple. She was referred to Dr. Tabor. Underwent ultrasound-guided mammotome biopsy on 04/19/2020. Pathology: MICROSCOPIC DIAGNOSIS Left breast, ultrasound-guided core biopsy: Invasive ductal carcinoma with the following characteristics: Maximal length 7 millimeters Nuclear grade 2/3 ER (clone 6F11) >95%, strong intensity WY (clone 16/1E2) >95%, strong intensity Her-2Neu (clone CB11) 0 Underwent ultrasound-guided wire localization left breast lumpectomy along with left sentinel lymph node biopsy on 05/03/2020. Pathology: FROZEN SECTION DIAGNOSIS A. Left axillary sentinel lymph node, biopsy: One out of one lymph node negative for carcinoma. MICROSCOPIC DIAGNOSIS A. Left axillary sentinel lymph node, biopsy: One out of one lymph node negative for carcinoma. B. Left breast, lumpectomy: Invasive ductal carcinoma. One out of one lymph nodes positive for micrometastatic (0.7mm) carcinoma. See cancer check list below. COMMENT INVASIVE BREAST CANCER SUMMARY Procedure: Excision with wire guidance Specimen: Type: Partial breast Size: 10 x 7 x 3.5 cm Laterality: Left Invasive Tumor: Size: 1.5 x 1 x 1 cm Focality: Single focus of invasive carcinoma. Histologic type: Invasive ductal carcinoma. Histologic grade (Brennen grade): Glandular/tubular differentiation score: 3 Nuclear pleomorphism score: 2 Mitotic count score: 1 Overall grade: 2 (score of 6) Lymphvascular invasion: Not identified Ductal Carcinoma In Situ: Estimated size (extent): Number of blocks: 1 of 10 blocks Architectural pattern: solid Nuclear grade: 2/3 Necrosis: Not present Lobular Carcinoma In Situ: Not present Tumor extension: Skin: Free of carcinoma. cicatrix Nipple: Not applicable Skeletal muscle: Not present Invasive Carcinoma Margin: Distance from closest margin: 12 mm from anterior margin In Situ Carcinoma Margin: Distance from closest margin: 12 mm from anterior margin Lymph Nodes: Number of sentinel lymph nodes examined: 1 Total number of lymph nodes examined: 2 Number of lymph node(s) positive for metastatic carcinoma: One out of one Intraparenchymal lymph node with micrometastatic (0.7mm) carcinoma. No isolated tumor cells seen and no extranodal extension of tumor is identified. Also see specimen A. Microcalcifications: Focally present in non-neoplastic tissue. Treatment Effect: Unknown Additional Pathologic Findings: Biopsy cavity with associated reactive change and mild fibrocystic change. Ancillary Studies: Previously performed on same tumor ([id number]) ER: positive (>95%, strong intensity) WY: positive (>95%, strong intensity) Iua0orq: negative (0) Clinical History: Pathologic Stage: T1c N1(mi) Mx Oncotype Dx results in detail. RS 15; 14% risk. No expected benefit from chemotherapy. RADIATION:06/22/20 - 07/13/20 Left breast Current therapy:Arimidex Began 2020. No new concerns today. Pt. here today with family member. Appetite: Too good. Energy level: It's good. Denies fevers or recent illness Resp:denies cough or sob Cardiac:denies chest pain/palpitations GI:denies abd pain, n/v, moving bowels regularly :denies dysuria/hematuria Extrem:denies pain Endo:denies hot flashes Neuro:denies symptoms of neuropathy Skin:denies rashes/lesions Heme:denies bleeding The ROS is otherwise negative. Past medical history, appointments, medications, allergies reviewed. No changes. EXAM: BP 149/69 Pulse 61 Temp 36.4 C (97.6 F) Wt 98.4 kg (217 lb) SpO2 97% BMI 42.38 kg/m APPEARANCE Well appearing, alert, in no acute distress, well-hydrated, well nourished. HEART RRR with normal S1 and S2, no murmurs LUNG clear to auscultation BREAST FEMALE no mass/nodule b/l, scar to L outer/radiation changes LYMPH NODES No cervical lymphadenopathy, No supraclavicular lymphadenopathy and No axillary lymphadenopathy. ABDOMEN bowel sounds normoactive, soft, non-tender, non-distended, without organomegaly or palpable masses EXTREMITIES No edema NEURO Awake, alert and oriented x 3, Normal gait and No involuntary motions. SKIN Skin color, texture, turgor normal, no suspicious rashes or lesions ASSESSMENT/PLAN: 1. Malignant neoplasm of upper-outer quadrant of left breast in female, estrogen receptor positive (HCC) - ICD9: 174.4, V86.0, ICD10: C50.412, Z17.0 (primary diagnosis) S/p ultrasound-guided wire localization left breast lumpectomy along with left sentinel lymph node biopsy on 05/03/2020. T1c N1(mi) M0 ER/WY positive, HER-2 negative stage IA infiltrating ductal carcinoma of the left breast. Oncotype Dx-15. S/p L breast radiation 06/22/20 - 07/13/20. - No concerning findings on exam. - Tolerating arimidex well. - Continue arimidex. - Bone density due September 2022. - Continue calcium+D. - Mammogram due in 2021. Pt. has this done at [facility]. - Follow up 6 months. - Pt. aware to call office with any questions/concerns. The patient indicates understanding of these issues and agrees with the plan. All documentation from previous visit of 04/24/21-Dr. Zavala/myself was copied and pasted, documentation has been reviewed and edited as necessary for today's visit. Amarilis Francisco APRN.JON documented in this encounter [facility] Evaluation note Note Date & Type Note Facility documented in this encounter [facility] Evaluation note Note Date & Type Note Facility documented in this encounter [facility] Reason for referral (narrative) Diagnostic Procedure Only (Routine) - Pending Review Note Date & Type Note Facility Referral ID Status Reason Start Date Expiration Date Visits Requested Visits Authorized [id number] Pending Review Auto-Generat ed Referral 10/23/2021 11/22/2022 1 1 [facility] Reason for referral (narrative) Diagnostic Procedure Only (Routine) - Pending Review Note Date & Type Note Facility Referral ID Status Reason Start Date Expiration Date Visits Requested Visits Authorized [id number] Pending Review Auto-Generat ed Referral 2 05/25/2023 1 1 [facility] Summary Purpose Family History No Family History Records FoundNo Family History Records Found Advance Directives No Advanced Directives Records FoundNo Advanced Directives Records Found Additional Source Comments Source Comments (unrecognize d section and content) In the event this informatio n is protected by the Federal Confidentiality of Alcohol and Drug Abuse Patient Records regulations: The Federal rules restrict any use of the information to criminally investigate or prosecute any alcohol or drug abuse patient.[facility] the event this information is protected by the Federal Confidentiality of Alcohol and Drug Abuse Patient Records regulations: The Federal rules restrict any use of the information to criminally investigate or prosecute any alcohol or drug abuse patient.[facility] the event this information is protected by the Federal Confidentiality of Alcohol and Drug Abuse Patient Records regulations: The Federal rules restrict any use of the information to criminally investigate or prosecute any alcohol or drug abuse patient.[facility] Reason for Visit (unrecogniz ed section and content) Reason Comments Orders Care Teams (unrecognized sec tion and content) Railroader Relationship Specialty Start Date End Date Cassie Nuno MD [address] [place] [address] PCP - General Internal Medicine 10/17/20 Luna Rao MD, [address] [place], [place] [id number] Physician Radiation Oncology 06/07/20 Cathy Bajwa RN Specialty [employer] Offset Press Operator Oncology 07/26/20 Railroader Relationship Specialty Start Date End Date Cassie Nuno MD [address] [place], [place] [id number] PCP - General Internal Medicine 10/17/20 Luna Rao MD, [address] [place], [place] [id number] Physician Radiation Oncology 06/07/20 Cathy Bajwa RN Specialty Webfed Offset Press Operator Oncology 07/26/20 INFORMATION SOURCE (unrecogn ized section and content) DATE CREATED AUTHOR AUTHOR'S ORGANIZ ATION 04/27/2023 [facility] FOR RECORDS PERTAINING TO PATIENTS WHO ARE OR HAVE BEEN ENROLLED IN A CHEMICAL DEPENDENCY/SUBSTANCEABUSE PROGRAM, SOME INFORMATION MAY BE OMITTED. This clinical summary was aggregated from multiple sources. Caution should be exercised in using it in the provision of clinical care. This summary normalizes information from multiple sources, and as a consequence, information in this document may materially change the coding, format and clinical context of patient data. In addition, data may be omitted in some cases. CLINICAL DECISIONS SHOULD BE BASED ON THE PRIMARY CLINICAL RECORDS. [employer] [facility]. provides no warranty or guarantee of the accuracy or completeness of information in this document.
[2023-07-09 17:05] LABS: ALB/GLOB Ratio 1.1 RATIO (0.9-2.4); AST(SGOT) 17 U/L (15-37); Alanine Aminotransfer ALT/SGPT 18 U/L (13-56); Albumin, Serum 3.9 g/dL (3.2-5.0); Alkaline Phosphatase 97 U/L (45-117); Anion Gap 5 (5-15); BUN 21 mg/dL (7-18); BUN/Creat Ratio 26.5 RATIO (10-20); Chloride 107 mmol/L (98-107); Cholesterol 188 mg/dL (200); Creatinine, Serum 0.79 mg/dL (0.55-1.02); EST Glomerular Filtration Rate 75 mL/min (>60); Est Glom Filt Rate - Afr Amer 91 mL/min (>60); Globulin 3.5 g/dL (2.2-4.2); Glucose 148 mg/dL (74-106); High Density Lipoprotein 58 mg/dL; Potassium 4.8 mmol/L (3.5-5.1); Protein, Total 7.4 g/dL (6.4-8.2); Sodium Level 139 mmol/L (136-145); Triglycerides 167 mg/dL; Very Low Density Lipoprotein 33 mg/dL (5-40)
== END | disposition home or self-care (01) ==
LOC: BIMLAB 15:32
PROVIDERS: PCP Internal Medicine; Referring Provider Internal Medicine; Visit Provider Internal Medicine
DX: I10 Essential (primary) hypertension (principal); E11.9 Type 2 diabetes mellitus without complications
CPT/HCPCS: 36415; 80053; 80061; 85025

== ENCOUNTER → 2024-04-07 | Outpatient (CLI) | payer MEDICARE, OTHER, SELFPAY ==
--- NOTE | 2024-04-07 07:49 | BI_ITS ---
MAMMOGRAPHY - BILATERAL SCREENING REASON FOR EXAM: Female, 74 years old. Routine annual screening examination. PERTINENT HISTORY: Personal history of breast cancer. Prior left lumpectomy with radiation therapy. Mother with breast cancer. Aunt with breast cancer. TECHNIQUE: Digital bilateral breast freya (3D mammographic acquisition) in the CC and MLO projections. 2-D mediolateral oblique (MLO) and craniocaudad (CC) views of both breasts were obtained. CAD: Full Field Digital Mammography with Computer Added Detection was performed. COMPARISON: Comparison is made with prior examination March 27, 2023 and March 26, 2022. FINDINGS: Breast Composition: There are scattered areas of fibroglandular density. The patient is status post lumpectomy in the upper lateral aspect of the left breast with resultant postoperative changes. A tissue clip marker is seen along the superior deep aspect of the lumpectomy site. Stable bilateral microcalcifications. No focal cluster is seen. No other significant abnormalities are identified. There has been no significant change since the prior study. BI/SCRN MAMM (CAD)W/FREYA BILAT IMPRESSION: Stable bilateral screening mammogram. Yearly follow-up mammogram recommended. (A) ASSESSMENT CATEGORY: BIRADS Category 2: Benign. A letter regarding these results will be sent to the patient by the facility within 30 days. Approximately 10% of breast cancers are not detected by mammography. A normal mammogram should not delay biopsy of a clinically suspicious abnormality. [id number] Electronically Signed: Brown Dawkins MD at 10:25 EDT ,
--- OUTSIDE RECORDS SUMMARY | 2024-04-07 08:08 | XMS RPT_ITS | CCD ---
Author Organization [facility] Care Team Providers Care Software Development Leader Name Role Phone Glenna Kothari Unavailable Unavailable Glenna Kothari Unavailable Unavailable Lindsay PARIMUTUEL TICKET SELLER-C, Franc Temple Unavailable Unavailable Cassie Nuno MD Unavailable [phone] Jalen GROSS MD, Luna Unavailable Aydee RN, Cathy Unavailable Unavailable Cassie Nuno MD Primary Care Provider [phone] KATY CORONADO PAC Attending Unavailable KATY CORONADO PAC Primary Care Unavailable KATY CORONADO PAC Admitting Unavailable FARRAH, DR BIANCA Singh Admitting Unavaila ble FARRAH, DR BIANCA Singh Attending Unavaila ble FARRAH, DR BIANCA Singh Primary Care Unavailiba Rao MD, MD, Luna Unavailable Aydee RN, Cathy Unavailable Unavailable Cassie Nuno MD Primary Care Provider [phone] Luna Rao MD Unavailable Aydee RN, Cathy Unavailable Unavailable Cassie Nuno MD Primary Care Provider 1( [phone]) Cassie Nuno MD Primary Care Provider [phone] CASSIE NUNO Primary Care Unavailable AMARILIS FRANCISCO Attending Unavailable CASSIE NUNO Primary Care Unavailable MARIA DOLORES ZAVALA Referring Unavailable AMARILIS FRANCISCO Attending Unavailable Allergies Allergy Classification Reported Allergen(s) Allergy Type Date of Onset Reaction(s) Facility (6 sources) Acetaminophen / oxyCODONE; Translations: [OXYCODONE-ACETAM INOPHEN] Drug Allergy 0 GI Upset [facility] (1 source) Acetaminophen / oxyCODONE Drug Allergy [facility] (2 sources) traMADol Drug Allergy 4 Other: See Comments [facility] Medications Current Medications Medication Drug Class(es) Dates Sig (Normalized) Sig (Original) anastrozole 1 mg oral tablet (6 sources) Aromatase Inhibitor Start: 04-25-2023 take 1 tablet by mouth once daily anastrozole (ARIMIDEX) 1 mg tablet Take 1 tablet by mouth once daily. 90 tablet 3 04/25/2023 Active Start: 04-24-2021 End: 04-25-2022 take 1 tablet by mouth once daily anastrozole (ARIMIDEX) 1 mg tablet Take 1 tablet by mouth once daily. 90 tablet 3 04/25/2022 Active Comment on above: Take 1 tablet by [place] once daily. gluc fish/chondro fish A/vit C/Mn (GLUCOSAMINE-CHONDROI TIN COMPLX ORAL) (5 sources) take 2 tablets by mouth twice daily gluc fish/chondro fish A/vit C/Mn (GLUCOSAMINE-CHONDROI TIN COMPLX ORAL) Take 2 tablets by mouth twice daily. Active take 2 tablets by [facility] twice daily gluc fish/chondro fsih A/vit C/Mn (GLUCOSAMINE-CHONDROITIN COMPLX ORAL) Take 2 tablets by mouth twice daily. 0 Active Comment on above: Take 2 tablets by [facility] twice daily. Lactobacillus acidophilus (5 sources) take 1 capsule by mouth once daily Lactobacillus acidophilus (PROBIOTIC ORAL) Take 1 capsule by mouth once daily. Active take 1 capsule by mouth once lois ly Lactobacillus acidophilus (PROBIOTIC ORAL) Take 1 capsule by mouth once daily. 0 Active Comment on above: Take 1 capsule by [facility] once daily. latanoprost 0.05 mg/ml ophthalmic solution (5 sources) Prostaglandin Analog Start: take 1 drop(s) into the eye(s) once daily latanoprost (XALATAN) 0.005 % ophthalmic solution Use 1 Drop in both eyes once daily. 08/17/2020 Active Start: 08-17-2020 take 1 drop(s) into the eye(s) once daily latanoprost (XALATAN) 0.005 % ophthalmic solution Use 1 Drop in both eyes once daily. 0 08/17/2020 Active Comment on above: Use 1 Drop in both e yes once daily. lisinopril 5 mg oral tablet (5 sources) Angiotensin Converting Enzyme Inhibitor take 1 tablet by mouth once daily lisinopril (ZESTRIL, PRINIVIL) 5 mg tablet Take 5 mg by mouth once daily. Active Comment on above: Take 5 mg by mouth o nce daily. 12 hr timolol 5 mg/ml ophthalmic solution (5 sources) beta-Adrenergic Melvi Start: 10-16-2020 timoloL maleate (TIMOPTIC) 0.5 % ophthalmic solution Use 1 Drop in both eyes twice daily. 10/16/2020 Active Start: 10-16-2020 timoloL maleat e (TIMOPTIC) 0.5 % ophthalmic solution Use 1 Drop in both eyes twice daily. 0 10/16/2020 Active Comment on above: Use 1 Drop in both e yes twice daily. Completed/Discontinued Medications Medication Drug Class(es) Dates Sig (Normalized) Sig (Original) calcium (4 sources) Phosphate Binder, Calcium Start: 02-05-2017 take 1 tablet by mouth once daily CALCIUM 500 + D TABS One tablet by mouth daily CALCIUM CARBONATE-VITAMIN D TABS [id number] Ivon Overton calcium carbonate 1250 mg chewable tablet (3 sources) take 1 tablet by mouth twice daily calcium carbonate 500 mg calcium (1,250 mg) chewable tablet Take 1 tablet by mouth twice daily. 0 Active Comment on above: Take 1 tablet by [place] twice daily. chondroitin sulfates / glucosamine (4 sources) Start: 02-05-2017 take 1 tablet by mouth once daily GLUCOSAMINE CHONDR COMPLEX 500-400 MG CAPS One tablet by mouth daily GLUCOSAMINE-CHONDR OITIN [id number] Ivon Overton Problems Active Problems Problem Classification Problem Date Documented Da te Episodic/Chronic Allergic reactions (1 source) Allergy status to narcotic agent status; Translations: [Allergy status to narcotic agent] Onset: 10-25-2021 Episodic Cancer of breast (9 sources) Malignant neoplasm of upper-outer quadrant of [...] Long-term current use of aromatase inhibitor; Translations: [FCI (current) use of aromatase inhibitors] Episodic Other non-traumatic joint disorders (2 sources) Pain in left wrist; Translations: [Pain in left wrist] Onset: 10-25-2021 Episodic Other nutritional; endocrine; and metabolic disorders (4 sources) Obesity; Translations: [Obesity, unspecified] Onset: 02-10-2017 02-10-2017 Chronic Residual codes; unclassified (1 source) Acquired absence [...] Problem Date Documented Da te Episodic/Chronic Other screening for suspected conditions (not mental disorders or infectious disease) (8 sources) Patient encounter status; Translations: [Encounter for screening mammogram for malignant neoplasm of breast] Onset: 09-08-2008 Episodic Results Test Name Value Interpretation Reference Range Facility [facility] 03-31-2024 JONN Telephone (ADAM) CATARINA SAGASTUME ([id number]) 1950 F Date Time Provider Department 03/31/24 AMARILIS FRANCISCO During your visit today, we recorded the following information about you: Aissatou Mancia 03/31/2024 1:38 PM Signed Please fax mamm order to [facility]. Patient has appointment for next week. Jana Goodrich LPN 03/31/2024 3:10 PM Signed Faxed order. Jana Goodrich LPN Allergies As of Date: 03/31/2024 Noted Allergy Reaction PERCOCET (OXYCODONE-ACETAMINOP HEN)05/18/2020 8 - GI Upset TRAMADOL 11/04/2023 14 - Other: See Comments Comments: Poor circulation Date Reviewed: 11/04/2023 Reviewed by: Amarilis Francisco APRN.SKIVING MACHINE OPERATOR - Fully Assessed Reason for Visit: Orders [681] Prescriptions as of 03/31/2024 - anastrozole (ARIMIDEX) 1 mg tablet Take 1 tablet by mouth once daily. - latanoprost (XALATAN) 0.005 % ophthalmic solution Use 1 Drop in both eyes once daily. - timoloL maleate (TIMOPTIC) 0.5 % ophthalmic solution Use 1 Drop in both eyes twice daily. - lisinopril (ZESTRIL, PRINIVIL) 5 mg tablet Take 5 mg by mouth once daily. - gluc fish/chondro fish A/vit C/Mn (GLUCOSAMINE-CHONDROI TIN COMPLX ORAL) Take 2 tablets by mouth twice daily. - Lactobacillus acidophilus (PROBIOTIC ORAL) Take 1 capsule by mouth once daily. Problem List As Of Date 03/31/2024 Noted Resolved SCREENING MAL NEOP-COLON [Z12.11] 09/08/2008 Malignant neoplasm of upper-outer quadrant of l*06/06/2020 Encounter Status:Closed by JANA GOODIRCH on 03/31/24 Normal [facility] CNOVSPon 11-04-2023 CNOVSP Visit (SP) Office (HEMJOHNNY) CATARINA SAGASTUME ([id number]) 1950 F Date Time Provider Department 11/04/23 10:30 AM AMARILIS FRANCISCO During your visit today, we recorded the following information about you: Temperature Pulse Blood pressure Weight 97.4 degrees 55/minute 170/80 90.6 kg Amarilis Francisco APRN.SKIVING MACHINE OPERATOR 11/04/2023 11:23 AM Signed Chief Complaint Patient presents with: Established Patient [...] 2/3 ER (clone 6F11) >95%, strong intensity ME (clone 16/1E2) >95%, strong intensity Her-2Neu (clone [...] Ancillary Studies: Previously performed on same tumor ([id number]) ER: positive (>95%, strong intensity) ME: positive (>95%, strong intensity) Ont1wyw: negative (0) Clinical History: Pathologic Stage: T1c N1(mi) Mx Oncotype Dx results in detail. RS 15; 14% risk. No expected benefit from chemotherapy. RADIATION:06/22/20 - 07/13/20 Left breast Current therapy:Arimidex Began 2020. No new concerns today. Pt. here today with family member. Appetite: Good. Energy level: It's good. Denies fevers or recent illness Resp:denies cough or sob Cardiac:denies chest pain/palpitations GI:denies abd pain, n/v, moving bowels regularly :denies dysuria/hematuria Extrem:denies pain Endo:denies hot flashes Neuro:denies symptoms of neuropathy Skin:denies rashes/lesions Heme:denies bleeding The ROS is otherwise negative. Past medical history, appointments, medications, allergies reviewed. No changes. EXAM: BP 170/80 Pulse (!) 55 Temp 36.3 ?C (97.4 ?F) (Temporal) Wt 90.6 kg (199 lb 12.8 oz) SpO2 99% BMI 39.02 kg/m? APPEARANCE Well appearing, alert, in no acute distress, well-hydrated, well nourished. HEART RRR with normal S1 and S2, no murmurs LUNG clear to auscultation BREAST FEMALE no mass/nodule b/l, L radiation changes LYMPH NODES No cervical lymphadenopathy, No supraclavicular lymphadenopathy, and No axillary lymphadenopathy. ABDOMEN bowel sounds normoactive, soft, non-tender (more content not included)... Normal [facility] CNOVSPon 04-25-2023 OVS Visit (SP) Office (ADAM) CATARINA SAGASTUME ([id number]) 1950 F Date Time Provider Department 04/25/23 11:30 AM AMARILIS FRANCISCO During your visit today, we recorded the following information about you: Temperature Pulse Blood pressure Weight 97.5 degrees 53/minute 157/76 92.5 kg Height 1.524 m Amarilis Francisco JEFF.SKIVING MACHINE OPERATOR 04/25/2023 11:55 AM Signed Chief Complaint Patient presents with: Established Patient [...] 2/3 ER (clone 6F11) >95%, strong intensity ME (clone 16/1E2) >95%, strong intensity Her-2Neu (clone [...] Ancillary Studies: Previously performed on same tumor ([id number]) ER: positive (>95%, strong intensity) ME: positive (>95%, strong intensity) Okj4fut: negative (0) Clinical History: Pathologic Stage: T1c [...] FEMALE no mass/nodule b/l LYMPH NODES No cer (more content not included)... Normal [facility] EMERGENCY REPORTon 2 EMERGENCY REPORT [facility] EMERGENCY ROOM REPORT NAME ACCOUNT SEX AGE ADMIT DISCHARGE PT MED. RECORD# NUMBER DATE DATE ALEXANDRIA SAGASTUME [id number] Lianne 71 10/25/21 10/25/21 3 CATARINA [id number] ROOM: ER DATE OF : 1950 DICTATING PHYSICIAN: Bianca Yan HISTORY OF PRESENT ILLNESS: The patient was weeding. She lost her balance, and she fell. She kind of fell forward. She landed on her left wrist and facial area and complains of pain, mainly pain in the wrist area. She denies any numbness or tingling. She is right-hand dominant. She is here with her daughter, who appears very caring and loving toward her. She was able to call her daughter. She is not on blood thinners. PAST MEDICAL HISTORY: Positive for hypertension. She has breast cancer. PAST SURGICAL HISTORY: Cholecystectomy and mastectomy. She has had knee surgery. SOCIAL HISTORY: The patient does not smoke or drink. REVIEW OF SYSTEMS: Ten systems were reviewed and were negative except as mentioned above. PHYSICAL EXAMINATION: VITAL SIGNS: The patient is afebrile. Pulse is 65, respirations 20, blood pressure 118/84, and pulse oximetry 96% on room air. HEENT: Head is normocephalic, atraumatic. Eyes: Pupils are equal, round and reactive to light. Extraocular muscles are intact. Nares are patent. Throat has adequate oral moisture. Uvula is midline. NECK: Neck is supple without petechiae or rash. HEART: Heart rate is regular without murmur. S1 is equal to S2. No S3 or S4 appreciated. LUNGS: Lungs are clear to auscultation bilaterally. No rales, rhonchi or retractions. ABDOMEN: Abdomen is soft, nontender and nondistended. SKIN: Skin is warm and dry. EXTREMITIES: The patient's left wrist has a deformity. It has tenderness. EMERGENCY DEPARTMENT COURSE AND TREATMENT: She was given Dilaudid for pain after an IV was established. I also gave her Toradol. She had an x-ray that showed a fracture of the distal radius. She was placed in a volar splint. Her mid-face was stable, and I do not believe x-rays are warranted at this time. She was told to return if any problems or concerns. She did not want any narcotics for pain, and she was told to take Motrin. DIAGNOSES: Page 1 of 2 CATARINA SAGASTUME Emergency Room Report CATARINA SAGASTUME : 1950 1. Fall with left wrist fracture. 2. Facial contusion. Dictated By: Bianca Yan DO 10/25/21 20:47 JOB #: [id number] Transcribed By: marcelina 10/26/21 06:32 Electronically signed by: EDITH Yan DO 10/27/21 10:04 Page 2 of 2 CATARINA SAGASTUME Emergency Room Report Normal [facility] WRIST COMPLETE LTon 10-26-19 WRIST COMPLETE LT [place] [id number] Patient: CATARINA SAGASTUME Phone#: : 1950 Age: 71 Gender: F Pt. Type: ER Account: [id number] Location: 052 Ordering: BIANCA YAN Exam Date: 10/25/2021/12:00 Family Phys: Charge Code: 125302 Physician: [place] Order #: [id number] DLP Dose#: CORRECTION: The articular surface of the distal radius demonstrates a focal step-off, suggesting a focal cortical fracture. This is seen best on the oblique view. Corrected on: 10/25/2021; PROCEDURE: X-RAY WRIST LT COMPLETE MIN 3 VIEWS COMPARISON: None. INDICATIONS: Trauma. FINDINGS: BONES: No acute osseous abnormality. Diffuse bony demineralization. Degenerative changes at the 1st carpometacarpal articulation with subluxation and sclerosis. SOFT TISSUES: Soft tissue swelling at level of the wrist EFFUSION: None visible. OTHER: Negative. CONCLUSION: 1. No appreciable acute osseous abnormality. Note: An acute wrist fracture may not be initially evident on radiograph. If there is persistent pain in 7-10 days recommend repeat radiograph. 2. Degenerative changes Dictated by: Marzena Rizzo MD on 10/25/2021 at 12:46 Approved by: Marzena Rizzo MD on 10/25/2021 at 12:49 Dictated by: Marzena Rizzo MD on 10/25/2021 at 13:07 Approved by: Marzena Rizzo MD on 10/25/2021 at 13:07 Normal [facility] Office Visit: Est Pt. Visito n 05-13-2017 Documentation of current medications (procedure) Done Invalid Interpretation Code [facility] Work Phone: Fall risk assessment No Invalid Interpretation Code [facility] Work Phone: Tobacco smoking status NHIS Never Invalid Interpretation Code [facility] Work Phone: Tobacco smoking status NHIS Tobacco smoking status NHIS Invalid Interpretation Code [facility] Work Phone: Tobacco use CPHS Never smoker Invalid Interpretation Code [facility] Work Phone: Lab Report: Hemoglobin A1con 04-28-2017 Hemoglobin A1c/Hemoglobin.tot al mass fraction (Bld) 6.6 % High 4.2-6.3 [facility] Work Phone: Lab Report: T4 Free Directon 04-28-2017 Thyroxine (T4) free 0.84 ng/dL Invalid Interpretation Code 0.76-1.46 [facility] Work Phone: Lab Report: Thyroid Stim Hor isabel (TSH)on 04-28-2017 Thyroid stimulating hormone (TSH) 2.04 u[iU]/mL Invalid Interpretation Code 0.358-3.74 [facility] Work Phone: Office Visit: establish care and blood test done recently high glucoseon 02-10-2017 Documentation of current medications (procedure) Done Invalid Interpretation Code [facility] Work Phone: Tobacco smoking status NHIS Never Invalid Interpretation Code [facility] Work Phone: Tobacco use [facility]PH[facility] Never smoker Invalid Interpretation Code [facility] Work Phone: Lab Report: Glucoseon 2016 Glucose mass conc 138 mg/dL High 70-110 [facility] Work Phone: Lab Report: Hemoglobin A1con 02-04-2017 Hemoglobin A1c/Hemoglobin.tot al mass fraction (Bld) 6.8 % High 4.2-6.3 [facility] Work Phone: Vital Signs Date Time Vital Sign Value Performing Clinician Facility 11-04-2023 10:57-0400 Body mass index (BMI) [Ratio] 39.02 kg/m2 Amarilis Francisco AMMONIUM NITRATE CRYSTALLIZER.SKIVING MACHINE OPERATOR Work Phone: [facility] 11-04-2023 10:57-0400 Body temperature 97.39 [degF] Neversink Francisco AMMONIUM NITRATE CRYSTALLIZER.SKIVING MACHINE OPERATOR Work Phone: [facility] 11-04-2023 10:57-0400 Body weight 90.63 kg Amarilis Francisco AMMONIUM NITRATE CRYSTALLIZER.SKIVING MACHINE OPERATOR Work Phone: [facility] 11-04-2023 10:57-0400 Diastolic blood pressure 80 mm[Hg] Neversink Francisco AMMONIUM NITRATE CRYSTALLIZER.SKIVING MACHINE OPERATOR Work Phone: [facility] 11-04-2023 10:57-0400 Heart rate 55 /min Amarilis Mccoyenter AMMONIUM NITRATE CRYSTALLIZER.SKIVING MACHINE OPERATOR Work Phone: [facility] 11-04-2023 10:57-0400 SaO2% (BldA) [Mass fraction] 99 % Amarilis Francisco AMMONIUM NITRATE CRYSTALLIZER.SKIVING MACHINE OPERATOR Work Phone: [facility] 11-04-2023 10:57-0400 Systolic blood pressure 170 mm[Hg] Amarilis Francisco AMMONIUM NITRATE CRYSTALLIZER.SKIVING MACHINE OPERATOR Work Phone: [facility] 04-25-2022 09:58-0500 Body temperature 97.3 [degF] Amarilis Francisco AMMONIUM NITRATE CRYSTALLIZER.SKIVING MACHINE OPERATOR Work Phone: [facility] 04-25-2022 09:58-0500 Body weight 100.02 kg Neversink Francisco AMMONIUM NITRATE CRYSTALLIZER.SKIVING MACHINE OPERATOR Work Phone: [facility] 04-25-2022 09:58-0500 Diastolic blood pressure 75 mm[Hg] Amarilis Francisco AMMONIUM NITRATE CRYSTALLIZER.SKIVING MACHINE OPERATOR Work Phone: [facility] 04-25-2022 09:58-0500 Heart rate 57 /min Neversink Francisco AMMONIUM NITRATE CRYSTALLIZER.SKIVING MACHINE OPERATOR Work Phone: [facility] 04-25-2022 09:58-0500 SaO2% (BldA) [Mass fraction] 100 % Neversink Francisco AMMONIUM NITRATE CRYSTALLIZER.SKIVING MACHINE OPERATOR Work Phone: [facility] 04-25-2022 09:58-0500 Systolic blood pressure 159 mm[Hg] Neversink Francisco AMMONIUM NITRATE CRYSTALLIZER.SKIVING MACHINE OPERATOR Work Phone: [facility] 10-23-2021 10:00-0400 Body temperature 97.59 [degF] Neversink Francisco AMMONIUM NITRATE CRYSTALLIZER.SKIVING MACHINE OPERATOR Work Phone: [facility] 10-23-2021 10:00-0400 Body weight 98.43 kg Amarilis Francisco AMMONIUM NITRATE CRYSTALLIZER.SKIVING MACHINE OPERATOR Work Phone: [facility] 10-23-2021 10:00-0400 Diastolic blood pressure 69 mm[Hg] Amarilis Francisco AMMONIUM NITRATE CRYSTALLIZER.SKIVING MACHINE OPERATOR Work Phone: [facility] 10-23-2021 10:00-0400 Heart rate 61 /min Neversink Francisco AMMONIUM NITRATE CRYSTALLIZER.SKIVING MACHINE OPERATOR Work Phone: [facility] 10-23-2021 10:00-0400 SaO2% (BldA) [Mass fraction] 97 % Amarilis Francisco AMMONIUM NITRATE CRYSTALLIZER.SKIVING MACHINE OPERATOR Work Phone: [facility] 10-23-2021 10:00-0400 Systolic blood pressure 149 mm[Hg] Neversink Francisco AMMONIUM NITRATE CRYSTALLIZER.SKIVING MACHINE OPERATOR Work Phone: [facility] 05-13-2017 10:26-0500 BMI (Body Mass Index) 36.76 kg/m2 Glenna Marthey [facility] Work Phone: 05-13-2017 10:26-0500 Body Temperature 97.1 [degF] Glenna Marthey [facility] Work Phone: 05-13-2017 10:26-0500 BP Diastolic 85 mm[Hg] Glenna Marthey [facility] Work Phone: 05-13-2017 10:26-0500 BP Systolic 143 mm[Hg] Glenna Marthey [facility] Work Phone: 05-13-2017 10:0500 Height 157.48 cm [facility]ennaerik [facility] Work Phone: 05-13-2017 10:0500 Pulse (Heart Rate) 71 /min Glennaerik [facility] Work Phone: 05-13-2017 10:0500 Respiratory Rate 16 /min Glenna [facility] Work Phone: 05-13-2017 10:-050 Weight 91.17 kg Glenna [facility] Work Phone: 02-10-2017 10:28-0400 BMI (Body Mass Index) 39.61 kg/m2 Cassie Nuno MD [facility] Work Phone: 02-10-2017 10:-0400 Body Temperature 98.6 [degF] Cassie Nuno MD [facility] Work Phone: 02-10-2017 10:28-0400 BP Diastolic 83 mm[Hg] Cassie Nuno MD [facility] Work Phone: 02-10-2017 10:28-0400 BP Systolic 137 mm[Hg] Cassie Nuno MD [facility] Work Phone: 02-10-2017 10:0400 Height 157.48 cm Cassie Nuno MD [facility] Work Phone: 02-10-2017 10:28-0400 Pulse (Heart Rate) 69 /min Cassie Nuno MD [facility] Work Phone: 02-10-2017 10:28-0400 Respiratory Rate 18 /min Cassie Nuno MD [facility] Work Phone: 02-10-2017 10:28-0400 Weight 98.25 kg Cassie Nuno MD [facility] Work Phone: Encounters Encounter Date Encounter Type Care Provider Facility Start: 03-31-2024 End: 03-31-2024 Telephone encounter Amarilis Francisco AMMONIUM NITRATE CRYSTALLIZER.SKIVING MACHINE OPERATOR Work Phone: Hematology/Oncology Comment on above: Orders Start: 11-04-2023 End: 11-04-2023 ambulatory Amarilis Francisco AMMONIUM NITRATE CRYSTALLIZER.SKIVING MACHINE OPERATOR Work Phone: Hematology/Oncology Comment on above: Malignant neoplasm o f upper-outer quadrant of left breast in female, estrogen receptor positive (HCC) (Primary Dx); Encounter for screening mammogram for high-risk patient Start: 11-04-2023 End: 11-04-2023 Patient encounter procedure Amarilis Francisco AMMONIUM NITRATE CRYSTALLIZER.SKIVING MACHINE OPERATOR Work Phone: Hematology/Oncology Start: 04-25-2023 End: 04-25-2023 ambulatory CASSIE NUNO Facility:[facility] Start: 04-25-2022 End: 04-25-2022 ambulatory Amarilis Francisco AMMONIUM NITRATE CRYSTALLIZER.SKIVING MACHINE OPERATOR Work Phone: Hematology/Oncology Comment on above: Malignant neoplasm o f upper-outer quadrant of left breast in female, estrogen receptor positive (HCC) (Primary Dx); intermission coordinator (current) use of aromatase inhibitors; Menopause; Encounter for screening mammogram for high-risk patient Start: 04-25-2022 End: 04-25-2022 Patient encounter procedure Amarilis Francisco AMMONIUM NITRATE CRYSTALLIZER.SKIVING MACHINE OPERATOR Work Phone: [facility] Start: 03-07-2022 Telephone encounter Amarilis buchanan AMMONIUM NITRATE CRYSTALLIZER.SKIVING MACHINE OPERATOR Work Phone: Hematology/Oncology Comment on above: Orders Start: 12-10-2021 End: 12-27-2021 ambulatory [facility] Start: 10-25-2021 End: 10-25-2021 Emergency department patient visit DR BIANCA YAN [facility] Start: 10-23-2021 End: 10-23-2021 ambulatory Amarilis Francisco AMMONIUM NITRATE CRYSTALLIZER.SKIVING MACHINE OPERATOR Work Phone: Hematology/Oncology Comment on above: Malignant neoplasm o f upper-outer quadrant of left breast in female, estrogen receptor positive (HCC) (Primary Dx); Encounter for screening mammogram for high-risk patient Start: 10-23-2021 End: 10-23-2021 Patient encounter procedure Amarilis Francisco APRN.CNP Work Phone: [facility] Procedures Date Procedure Procedure Detail Performing Clinician Start: 06-27-2020 Adult depression scr eening assessment Amarilis Francisco APRN.JON Work Phone: Start: 04-29-2017 End: 05-01-2017 Hemoglobin A1c/Hemoglobin.total in Blood Cassie Nuno MD Work Phone: Start: 02-10-2017 End: 04-29-2017 Thyrotropin [Units/volume] in Serum or Plasma Cassie Nuno MD Work Phone: Start: 02-10-2017 End: 04-29-2017 Thyroxine (T4) free [Mass/volume] in Serum or Plasma Cassie Nuno MD Work Phone: Start: 10-05-2008 Colonoscopy Amarilis buchanan APRN.CNP Work Phone: Plan of Treatment Date Care Activity Detail Author Start: 05-06-2024 End: 05-06-2024 ambulatory 05/06/2024 10:00 AM EST Visit (SP) Office Hematology/Oncology [address] [place] [phone] Amarilis Francisco APRN.SKIVING MACHINE OPERATOR [address] [place] [phone] 6 month f/u Hematology/Oncology Comment on above: 6 month f/u Start: 05-05-2024 End: 05-05-2024 ambulatory 05/05/2024 11:30 AM EST Visit (SP) Office Hematology/Oncology [address] [place] [address] Amarilis Francisco APRN.SKIVING MACHINE OPERATOR [address] [place] [id number] 6 month f/u Hematology/Oncology Comment on above: 6 month f/u Start: 02-15-2024 Covid-19 Vaccine ( season) Covid-19 Vaccine () [facility] Start: 02-15-2024 Influenza vaccination C [facility] Start: 06-16-2023 Advance Directive Discussion Advance Directive Discussion [facility] Start: 06-16-2023 Behavioral Health Screening Behavioral Health Screening [facility] Start: 02-14-2023 Covid-19 Vaccine ( season) Covid-19 Vaccine ( season) [facility] Start: 02-02-2023 RSV Vaccine (1 - 1-d ose 75+ series) RSV Vaccine (1 - 1-dose 75+ series) [facility] Start: 02-14-2022 Influenza vaccination C [facility] Start: 06-27-2021 Adult depression screening assessment DEPRESSION SCREENING [facility] Start: 06-16-2021 ADVANCE DIRECTIVE DISCUSSION ADVANCE DIRECTIVE DISCUSSION [facility] Start: 06-16-2021 DEPRESSION ASSESSMENT DEPRESSION ASS ESSMENT [facility] Start: 05-12-2019 Pneumococcal Vaccine : 65+ (2 of 2 - PPSV23 or PCV20) Pneumococcal Vaccine: 65+ (2 of 2 - PPSV23 or PCV20) [facility] Start: 07-31-2017 End: 05-01-2017 Hemoglobin A1c/Hemoglobin.total mass fraction (Bld) *HgA1C [facility] Work Phone: Start: 05-13-2017 End: 05-13-2017 Follow Up Appt 3 months Follow Up Appt 3 months [facility] Work Phone: Start: 05-13-2017 End: 05-13-2017 Appointment Appointment [facility] Work Phone: Start: 04-29-2017 End: 05-01-2017 Hemoglobin A1c/Hemoglobin.total mass fraction (Bld) *HgA1C [facility] Work Phone: Start: 02-10-2017 End: 02-10-2017 Follow Up Appt 3 months Follow Up Appt 3 months [facility] Work Phone: Start: 02-10-2017 End: 04-29-2017 Thyroid stimulating hormone (TSH) *TSH [facility] Work Phone: Start: 02-10-2017 End: 04-29-2017 Thyroxine (T4) free *T4 free [facility] Work Phone: Start: 02-02-2013 PNEUMOCOCCAL: 65+ (1 - PCV) PNEUMOCOCCAL: 65+ (1 - PCV) [facility] Start: 02-02-2013 PNEUMOVAX AGE 65 AND OVER WITH 5YR LOOKBACK (#1) PNEUMOVAX AGE 65 AND OVER WITH 5YR LOOKBACK (#1) [facility] Start: 10-05-2009 Colonoscopy COLONOSCOPY [facility] Start: 10-05-2009 COLORECTAL CANCER SCREENING COLORECTAL CANCER SCREENING [facility] Start: 10-05-2009 Screening for malign ant neoplasm of colon [facility] Start: 2008 RSV Vaccine (1 - 1-d ose 60+ series) RSV Vaccine (1 - 1-dose 60+ series) [facility] Start: 02-02-1998 SHINGRIX VACCINE (1 of 2) SHINGRIX VACCINE (1 of 2) [facility] Start: 02-02-1993 COLOGUARD (FIT-DNA) COLOGUARD (FIT-D NA) [facility] Start: 02-02-[address] COLONOGRAPHY [facility] Start: 02-02-1993 DIABETES SCREEN DIABETES SCREEN [facility] Start: 02-02-1993 Diabetes Screening Diabetes Screenin g [facility] Start: 02-02-1993 FECAL OCCULT BLOOD FECAL OCCULT BLOO D [facility] Start: 02-02-1993 Lipid panel Lipid Screening [facility] Start: 02-02-1993 LIPID SCREEN LIPID SCREEN [facility] Start: 02-02-1993 Screening for malign ant neoplasm of colon [facility] Start: 02-02-1993 SIGMOIDOSCOPY SIGMOIDOSCOPY [facility] Start: 1988 Mammography MAMMOGRAM [facility] Start: 02-02-1967 Urine microalbumin profile [facility] Start: 02-02-1966 Anxiety Screening Anxiety Screening [facility] Start: 02-02-1966 Depression Screening Depression Scre ening [facility] Start: 02-02-1966 HEPATITIS C SCREENING HEPATITIS C [facility] Start: 02-02-1966 Hepatitis C screening Hepatitis C [facility] Start: 02-02-1953 COVID-19 VACCINE (#1) COVID-19 VACCI NE (#1) [facility] Start: 1948 COVID-19 VACCINE (#1) COVID-19 VACCI NE (#1) [facility] End: 12-03-2024 DBT Breast - bilateral screening ARIANA SCREENING W FREYA Radiology Routine Malignant neoplasm of upper-outer quadrant of left breast in female, estrogen receptor positive (HCC) Encounter for screening mammogram for high-risk patient 1 Occurrences starting 11/04/2023 until 12/03/2024 [facility] Work Phone: Comment on above: 1 Occurrences starti ng 11/04/2023 until 12/03/2024 End: 05-25-2023 Dxa bone density study 1/ sites axial skel DXA-AXIAL SKELETON Radiology Routine [facility] (current) use of aromatase inhibitors Menopause 1 Occurrences starting 04/25/2022 until 05/25/2023 [facility] Work Phone: Comment on above: 1 Occurrences starti ng 04/25/2022 until 05/25/2023 End: 11-22-2022 ARIANA SCREENING W FREYA ARIANA SCREENING W FREYA Radiology Routine Malignant neoplasm of upper-outer quadrant of left breast in female, estrogen receptor positive (HCC) Encounter for screening mammogram for high-risk patient 1 Occurrences starting 10/23/2021 until 11/22/2022 [facility] Work Phone: Comment on above: 1 Occurrences starti ng 10/23/2021 until 11/22/2022 End: 05-25-2023 ARIANA SCREENING W FREYA ARIANA SCREENING W FREYA Radiology Routine Malignant neoplasm of upper-outer quadrant of left breast in female, estrogen receptor positive (HCC) Encounter for screening mammogram for high-risk patient 1 Occurrences starting 04/25/2022 until 05/25/2023 [facility] Work Phone: Comment on above: 1 Occurrences starti ng 04/25/2022 until 05/25/2023 [facility] Immunizations Immunization Date Immunization Notes Care Provider Nicolas dumont 04-13-2019 influenza virus vaccine, unspecified formulation Amarilis Francisco APRN.CNP Work Phone: [facility] 05-13-2017 Seasonal trivalent influenza vaccine, adjuvanted, preservative free [facility] Work Phone: Payers Date Payer Category Payer Unknown MMO MMO MEDICARE SUPPLEMENT [id number] 2013-Present [phone] [address] [place] [address] Indemnity [id number] 2013 Unknown MMO MMO MEDICARE SUPPLEMENT [id number] 2013-Present [phone] [address] [place] [address] Indemnity [id number] 2013 Unknown [id number] 2013 Medicare MEDICARE MEDICAR E A AND B [id number] 2013-Present [phone] [address] [address] [place] [address] Medicare [id number] 2013 Medicare MEDICARE MEDICAR E A AND B [id number] 2013-Present [phone] [address] [address] [place] [address] Medicare [id number] 2013 Medicare [id number] 1950 Unknown [id number] 1950 Unknown [id number] Social History Date Type Detail Facility Start: [facility]18[facility] Start: 10-23-2021 End: 11-04-2023 Alcohol intake Current non-drinker of alcohol (finding) [facility] Start: 1950 Sex Assigned At Female [facility] Start: 10-13-2021 End: 10-23-2021 Exposure to SARS-CoV-2 (event) Not sure [facility] Start: 05-18-2020 Tobacco use and exposure Smoke less tobacco non-user [facility] Start: 10-24-2022 End: 11-04-2023 History of Social function [facility] Start: 10-24-2022 End: 11-04-2023 Tobacco use panel [facility] Adult Depression Screening Assessment 0 [facility] Start: 07-26-2020 Gender identity Identifies as female gender (finding) [facility] Start: 07-26-2020 Sexual orientation Heterosexual (fin ding) [facility] Clinical Notes 10-23-2021 to 03-31-2024 Telephone Encounter - Jana Goodrich LPN - 03/31/2024 3:10 PM EDTTelephone Encounter - Jana Goodrich LPN - 03/31/2024 3:10 PM EDTTelephone Encounter - Aissatou Mancia - 03/31/2024 1:37 PM EDT Note Date & Type Note Facility 03-31-2024 Telephone encounter Note Faxed order. Jana Goodrich LPN [facility] 03-31-2024 Miscellaneous Notes Faxed order. Jana Goodrich LPN Please fax mamm order to [facility]. Patient has appointment for next week. documented in this encounter [facility] 03-31-2024 Telephone encounter Note Please fax mamm order to [facility]. Patient has appointment for next week. [facility] Work Phone: 11-04-2023 Note HNO ID: [id number] Author: AMARILIS FRANCISCO APRN.SKIVING MACHINE OPERATOR Service: ? Author Type: Nurse Practitioner Type: Progress Notes Filed: 11/04/2023 11:23 Note Text: Chief Complaint Patient presents with: [...] 2/3 ER (clone 6F11) >95%, strong intensity ME (clone 16/1E2) >95%, strong intensity Her-2Neu (clone [...] Ancillary Studies: Previously performed on same tumor ([id number]) ER: positive (>95%, strong intensity) ME: positive (>95%, strong intensity) Wzy9mdf: negative (0) Clinical History: Pathologic Stage: T1c N1(mi) Mx Oncotype Dx results in detail. RS 15; 14% risk. No expected benefit from chemotherapy. RADIATION:06/22/20 - 07/13/20 Left breast Current therapy:Arimidex Began 2020. No new concerns today. Pt. here today with family member. Appetite: Good. Energy level: It's good. Denies fevers or recent illness Resp:denies cough or sob Cardiac:denies chest pain/palpitations GI:denies abd pain, n/v, moving bowels regularly :denies dysuria/hematuria Extrem:denies pain Endo:denies hot flashes Neuro:denies symptoms of neuropathy Skin:denies rashes/lesions Heme:denies bleeding The ROS is otherwise negative. Past medical history, appointments, medications, allergies reviewed. No changes. EXAM: BP 170/80 Pulse (!) 55 Temp 36.3 ?C (97.4 ?F) (Temporal) Wt 90.6 kg (199 lb 12.8 oz) SpO2 99% BMI 39.02 kg/m? APPEARANCE Well appearing, alert, in no acute distress, well-hydrated, well nourished. HEART RRR with normal S1 and S2, no murmurs LUNG clear to auscultation BREAST FEMALE no mass/nodule b/l, L radiation changes LYMPH NODES No cervical lymphadenopathy, No supraclavicular lymphadenopathy, and No axillary lymphadenopathy. ABDOMEN bowel sounds normoactive, soft, non-tender EXTREMITIES No edema NEURO Awake, alert and oriented x 3, using cane, and No involuntary motions. SKIN Skin color, texture, turgor normal, no suspicious rashes or lesions ASSESSMENT/PLAN: 1. Malignant neoplasm of upper-outer quadrant of left breast in female, estrog (more content not included)... [facility] 11-04-2023 History of Presen t illness Narrative Chief [...] 2/3 ER (clone 6F11) >95%, strong intensity ME (clone 16/1E2) >95%, strong intensity Her-2Neu (clone [...] Ancillary Studies: Previously performed on same tumor ([id number]) ER: positive (>95%, strong intensity) ME: positive (>95%, strong intensity) Obw8esx: negative (0) Clinical History: Pathologic Stage: T1c N1(mi) Mx Oncotype Dx results in detail. RS 15; 14% risk. No expected benefit from chemotherapy. RADIATION:06/22/20 - 07/13/20 Left breast Current therapy:Arimidex Began 2020. No new concerns today. Pt. here today with family member. Appetite: Good. Energy level: It's good. Denies fevers or recent illness Resp:denies cough or sob Cardiac:denies chest pain/palpitations GI:denies abd pain, n/v, moving bowels regularly :denies dysuria/hematuria Extrem:denies pain Endo:denies hot flashes Neuro:denies symptoms of neuropathy Skin:denies rashes/lesions Heme:denies bleeding The ROS is otherwise negative. Past medical history, appointments, medications, allergies reviewed. No changes. EXAM: BP 170/80 Pulse (!) 55 Temp 36.3 C (97.4 F) (Temporal) Wt 90.6 kg (199 lb 12.8 oz) SpO2 99% BMI 39.02 kg/m APPEARANCE Well appearing, alert, in no acute distress, well-hydrated, well nourished. HEART RRR with normal S1 and S2, no murmurs LUNG clear to auscultation BREAST FEMALE no mass/nodule b/l, L radiation changes LYMPH NODES No cervical lymphadenopathy, No supraclavicular lymphadenopathy, and No axillary lymphadenopathy. ABDOMEN bowel sounds normoactive, soft, non-tender EXTREMITIES No edema NEURO Awake, alert and oriented x 3, using cane, and No involuntary motions. SKIN Skin color, texture, turgor normal, no suspicious rashes or lesions ASSESSMENT/PLAN: 1. Malignant neoplasm of upper-outer quadrant of left breast in female, estrogen receptor positive (HCC) - ICD9: 174.4, V86.0, ICD10: C50.412, Z17.0 (primary diagnosis) S/p ultrasound-guided wire localization left breast lumpectomy along with left sentinel lymph node biopsy on 05/03/2020. T1c N1(mi) M0 ER/ME positive, HER-2 negative stage IA infiltrating ductal carcinoma of the left breast. Oncotype Dx-15. S/p L breast radiation 06/22/20 - 07/13/20. - No concerning findings on exam. - Tolerating arimidex well. - Reviewed mammogram with pt. - Continue arimidex. - Mammogram due 2023. Pt. has this done at [facility]. - Follow up in 6 months. - Pt. aware to call office with any questions/concerns. The patient indicates understanding of these issues and agrees with the plan. All documentation from previous visit of 04/25/23-Dr. Zavala/myself was copied and pasted, documentation has been reviewed and edited as necessary for today's visit. Amarilis Francisco APRN.SKIVING MACHINE OPERATOR documented in this encounter [facility] 04-25-2023 Note HNO ID: [id number] Author: Amarilis Francisco APRN.SKIVING MACHINE OPERATOR Service: ? Author Type: Nurse Practitioner Type: [...] 2/3 ER (clone 6F11) >95%, strong intensity ME (clone 16/1E2) >95%, strong intensity Her-2Neu (clone [...] Histologic type: Invasive ductal carcinoma. Histologic grade (Memphis grade): Glandular/tubular differentiation score: 3 Nuclear pleomorphism [...] Ancillary Studies: Previously performed on same tumor ([id number]) ER: positive (>95%, strong intensity) ME: positive (>95%, strong intensity) Quf2xwu: negative (0) Clinical History: Pathologic Stage: T1c [...] texture, turgor normal (more content not included)... [facility] 04-25-2022 History of Presen t illness Narrative [...] 2/3 ER (clone 6F11) >95%, strong intensity ME (clone 16/1E2) >95%, strong intensity Her-2Neu (clone [...] Histologic type: Invasive ductal carcinoma. Histologic grade (Memphis grade): Glandular/tubular differentiation score: 3 Nuclear pleomorphism [...] Ancillary Studies: Previously performed on same tumor ([id number]) ER: positive (>95%, strong intensity) ME: positive (>95%, strong intensity) Utz8qae: negative (0) Clinical History: Pathologic Stage: T1c N1(mi) Mx Oncotype Dx results in detail. RS 15; 14% risk. No expected benefit from chemotherapy. RADIATION:06/22/20 - 07/13/20 Left breast Current therapy:Arimidex Began 2020. No new concerns today. Pt. here today with family member. Pt. had emergent appendectomy November 2021-Dr. Austin done at [facility]. Appetite: Too good. Energy level: It's alright. [...] node biopsy on 05/03/2020. T1c N1(mi) M0 ER/ME positive, HER-2 negative stage IA infiltrating ductal carcinoma of the left breast. Oncotype Dx-15. S/p L breast radiation 06/22/20 - 07/13/20. - No concerning findings on exam. - Tolerating arimidex well. - Reviewed mammogram with pt. - Continue arimidex. Rx done. - Continue calcium+D. - Bone density due September 2022. - Mammogram due 2022. Pt. has this done at [facility]. - Follow up 6 months. - Pt. aware to call office with any questions/concerns. The patient indicates understanding of these issues and agrees with the plan. All documentation from previous visit of 10/23/21-Dr. Zavala/myself was copied and pasted, documentation has been reviewed and edited as necessary for today's visit. Amarilis Francisco APRN.CNP documented in this encounter [facility] 03-07-2022 Miscellaneous Notes Faxed order to [facility] central reg. notified daughter. Jana Lawrencear MCCORD Pts daughter is checking on the order for pts mammogram. She has done previous ones at [facility] and would like to have the order sent there. documented in this encounter [facility] 10-23-2021 History of Presen t illness Narrative [...] 2/3 ER (clone 6F11) >95%, strong intensity ME (clone 16/1E2) >95%, strong intensity Her-2Neu (clone [...] Ancillary Studies: Previously performed on same tumor ([id number]) ER: positive (>95%, strong intensity) ME: positive (>95%, strong intensity) Mxh3txu: negative (0) Clinical History: Pathologic Stage: T1c [...] node biopsy on 05/03/2020. T1c N1(mi) M0 ER/ME positive, HER-2 negative stage IA infiltrating ductal carcinoma of the left breast. Oncotype Dx-15. S/p L breast radiation 06/22/20 - 07/13/20. - No concerning findings on exam. - Tolerating arimidex well. - Continue arimidex. - Bone density due September 2022. - Continue calcium+D. - Mammogram due in 2021. Pt. has this done at [facility]. - Follow up 6 months. - Pt. aware to call office with any questions/concerns. The patient indicates understanding of these issues and agrees with the plan. All documentation from previous visit of 04/24/21-Dr. Zavala/myself was copied and pasted, documentation has been reviewed and edited as necessary for today's visit. Amarilis Francisco APRN.JON documented in this encounter [facility] Evaluation note Diagnosis Malignant neoplasm of upper-outer quadrant of left breast in female, estrogen receptor positive (HCC)- Primary Encounter for screening mammogram for high-risk patient [facility] Diagnosis Malignant neoplasm of upper-outer quadrant of left breast in female, estrogen receptor positive (HCC)- Primary [facility] (current) use of aromatase inhibitors Menopause Symptomatic menopausal or female climacteric states Encounter for screening mammogram for high-risk patient [facility] Diagnosis Malignant neoplasm of upper-outer quadrant of left breast in female, estrogen receptor positive (HCC)- Primary Encounter for screening mammogram for high-risk patient documented [facility] this encounter [facility] (narrative)* Diagnostic Procedure Only (Routine) - Pending Review Specialty Diagnoses / Procedures Referred By Keegan hernandez Referred To Contact [facility] Diagnoses Malignant neoplasm of upper-outer quadrant of left breast in female, estrogen receptor positive (HCC) Encounter for screening mammogram for high-risk patient Procedures ARIANA SCREENING W FREYA SCREENING DIGITAL BREAST TOMOSYNTHESIS BI SCREENING MAMMOGRAPHY BI 2-VIEW BREAST INC Amarilis Overton APRN.SKIVING MACHINE OPERATOR [address] [place] [address] [facility] [address] [place] [address] Referral ID Status Reason Start Date Expiration Date Visits Requested Visits Authorized [id number] Pending Review Auto-Generat ed Referral 10/23/2021 11/22/2022 1 1 [facility] (narrative)* Diagnostic Procedure Only (Routine) - Pending Review Specialty Diagnoses / Procedures Referred By Keegan hernandez Referred To Contact [facility] Diagnoses Malignant neoplasm of upper-outer quadrant of left breast in female, estrogen receptor positive (HCC) Encounter for screening mammogram for high-risk patient Procedures ARIANA SCREENING W FREYA SCREENING DIGITAL BREAST TOMOSYNTHESIS BI SCREENING MAMMOGRAPHY BI 2-VIEW BREAST INC Amarilis Overton APRN.SKIVING MACHINE OPERATOR [address] [place] [address] [facility] [address] [place] [address] Referral ID Status Reason Start Date Expiration Date Visits Requested Visits Authorized [id number] Pending Review Auto-Generat ed Referral 2 05/25/2023 1 1 [facility] Diagnostic Procedure Only (Routine) - Pending Review Specialty Diagnoses / Procedures Referred By Keegan hernandez Referred To Contact [facility] Diagnoses Malignant neoplasm of upper-outer quadrant of left breast in female, estrogen receptor positive (HCC) Encounter for screening mammogram for high-risk patient Procedures ARIANA SCREENING W FREYA SCREENING DIGITAL BREAST TOMOSYNTHESIS BI SCREENING MAMMOGRAPHY BI 2-VIEW BREAST INC Amarilis Overton APRN.CNP [address] [place] [address] [facility] [address] [place] [address] Referral ID Status Reason Start Date Expiration Date Visits Requested Visits Authorized [id number] Pending Review Auto-Generat ed Referral 11/04/2023 12/03/2024 1 1 [facility] Summary Purpose Family History No Family History [...] or prosecute any alcohol or drug abuse patient.[facility] the event this information is protected by the Federal Confidentiality of Alcohol and Drug Abuse Patient Records regulations: The Federal rules restrict any use of the information to criminally investigate or prosecute any alcohol or drug abuse patient.[facility] the event this information is protected by the Federal Confidentiality of Alcohol and Drug Abuse Patient Records regulations: The Federal rules restrict any use of the information to criminally investigate or prosecute any alcohol or drug abuse patient.[facility] the event this information is protected by the Federal Confidentiality of Alcohol and Drug Abuse Patient Records regulations: The Federal rules restrict any use of the information to criminally investigate or prosecute any alcohol or drug abuse patient.[facility] the event this information is protected by the Federal Confidentiality of Alcohol and Drug Abuse Patient Records regulations: The Federal rules restrict any use of the information to criminally investigate or prosecute any alcohol or drug abuse patient.[facility] Reason for Visit (unrecogniz ed section and content) Reason Comments Established Patient Reason Comments Orders Care Teams (unrecognized sec tion and content) Software Development Leader Relationship Specialty Start Date End Date Cassie Nuno MD [address] [place] [address] PCP - General Internal Medicine 10/17/20 Luna Rao MD, [address] [place] [address] Physician Radiation Oncology 06/07/20 Cathy Bajwa RN Specialty Corrections Officer Oncology 07/26/20 Software Development Leader Relationship Specialty Start Date End Date Cassie Nuno MD [address] [place] [address] PCP - General Internal Medicine 10/17/20 Luna Rao MD, [address] [place] [address] Physician Radiation Oncology 06/07/20 Cathy Bajwa RN Specialty Corrections Officer Oncology 07/26/20 Software Development Leader Relationship Specialty Start Date End Date Cassie Nuno MD [address] [place] [address] PCP - General Internal Medicine 10/17/20 Luna Rao MD, [address] [place] [address] Physician Radiation Oncology 06/07/20 Cathy Bajwa RN Specialty Corrections Officer Oncology 07/26/20 Software Development Leader Relationship Specialty Start Date End Date Cassie Nuno MD [address] [place] [address] PCP - General Internal Medicine 10/17/20 Luna Rao MD [address] [place] [address] Physician Radiation Oncology 06/07/20 Cathy Bajwa RN Specialty Corrections Officer Oncology 07/26/20 Software Development Leader Relationship Specialty Start Date End Date Cassie Nuno MD [address] [place], [place] [address] PCP - General Internal Medicine 10/17/20 Luna Rao MD [address] [place] [address] Physician Radiation Oncology 06/07/20 Cathy Bajwa RN Specialty Corrections Officer Oncology 07/26/20 INFORMATION SOURCE (unrecogn ized section and content) DATE CREATED AUTHOR 01/17/2022 [facility] DATE CREATED AUTHOR AUTHOR'S ORGANIZ ATION 04/03/2024 [facility] FOR RECORDS PERTAINING TO PATIENTS WHO ARE [...] BE BASED ON THE PRIMARY CLINICAL RECORDS. [facility]. provides no warranty or guarantee of the accuracy or completeness of information in this document.
== END | disposition home or self-care (01) ==
LOC: OPBI 07:47
PROVIDERS: PCP Internal Medicine; Referring Provider Nurse Practitioner; Visit Provider Nurse Practitioner
DX: Z12.31 Encounter for screening mammogram for malignant neoplasm of breast (principal); C50.412 Malignant neoplasm of upper-outer quadrant of left female breast; Z17.0 Estrogen receptor positive status [ER+]
CPT/HCPCS: 77063; 77067

== ENCOUNTER → 2024-07-15 | Outpatient (CLI) | payer MEDICARE, OTHER, SELFPAY ==
[2024-07-15 15:29] LABS: Absolute Neutrophil Count 3.7 X10^3/uL (2.0-7.7); Basophil# 0.04 X10^3/uL; Basophil% 0.7 % (0-1); Eosinophil# 0.11 X10^3/uL; Eosinophils% 1.9 % (0-5); Hematocrit 40.7 % (37-47); Hemoglobin 13.2 g/dL (12.0-15.0); Lymphocyte % 22.3 % (19-41); Mean Corp Hgb Conc 32.4 g/dL (32-36); Mean Corpuscular Hgb 31.4 pg (27.0-32.0); Mean Corpuscular Volume 96.7 fL (81-99); Mean Platelet Vol. 10.1 fl (6.2-12.0); Monocyte# 0.63 X10^3/uL; Monocyte% 10.8 % (0-10); NRBC Flagged by Analyzer 0 % (0-5); Neutrophil # 3.73 X10^3/uL (2.7-7.7); Neutrophil % 64.1 % (47-70); Platelet Count 164 K/mm3 (150-450); RBC Distribution Width CV 12.8 % (11.6-14.6); RBC Distribution Width SD 45.6 fl (35.1-43.9); Red Blood Count 4.21 M/mm3 (4.2-5.4); White Blood Count 5.8 K/mm3 (4.4-11.0)
[2024-07-15 15:51] LABS: ALB/GLOB Ratio 1.1 RATIO (0.9-2.4); AST(SGOT) 15 U/L (15-37); Alanine Aminotransfer ALT/SGPT 28 U/L (13-56); Albumin, Serum 3.9 g/dL (3.2-5.0); Alkaline Phosphatase 91 U/L (45-117); Anion Gap 5 (5-15); BUN 27 mg/dL (7-18); BUN/Creat Ratio 34.1 RATIO (10-20); Chloride 106 mmol/L (98-107); Cholesterol 203 mg/dL (200); Creatinine, Serum 0.79 mg/dL (0.55-1.02); EST Glomerular Filtration Rate 75 mL/min (>60); Est Glom Filt Rate - Afr Amer 91 mL/min (>60); Globulin 3.5 g/dL (2.2-4.2); Glucose 148 mg/dL (74-106); High Density Lipoprotein 55 mg/dL; Potassium 4.8 mmol/L (3.5-5.1); Protein, Total 7.4 g/dL (6.4-8.2); Sodium Level 138 mmol/L (136-145); Triglycerides 186 mg/dL; Very Low Density Lipoprotein 37 mg/dL (5-40)
[2024-07-15 19:24] LABS: Microalbumin,Random Urine 7.1 mg/L (NO RANGE EST.); Microalbumin:Creatinine Ratio 47.3 mg/g CRE (<30 mg/g CRE)
[2024-07-16 13:49] LABS: Hemoglobin A1c 6.9 % (3.8-5.6)
== END | disposition home or self-care (01) ==
LOC: BIMLAB 14:14
PROVIDERS: PCP Internal Medicine; Referring Provider Internal Medicine; Visit Provider Internal Medicine
DX: I10 Essential (primary) hypertension (principal); E11.9 Type 2 diabetes mellitus without complications
CPT/HCPCS: 36415; 80053; 80061; 82043; 82570; 83036; 85025

== ENCOUNTER → 2025-04-08 | Outpatient (CLI) | payer MEDICARE, OTHER, SELFPAY | END | disposition home or self-care (01) | LOC: OPBI 07:54 | PROVIDERS: PCP Internal Medicine; Referring Provider Nurse Practitioner; Visit Provider Nurse Practitioner | DX: Z12.31 Encounter for screening mammogram for malignant neoplasm of breast (principal); C50.412 Malignant neoplasm of upper-outer quadrant of left female breast; Z17.0 Estrogen receptor positive status [ER+] | CPT/HCPCS: 77063; 77067 ==